=== PATIENT | female | born 1965 ===

== ENCOUNTER 2020-07-05 12:28 | Outpatient (REF) | payer OTHER, SELFPAY ==
[2020-07-05 13:22] LABS: MANUAL DIFF FLAG NO
[2020-07-05 13:23] LABS: Basophils Percent Auto 0.5 % (0-2); Eosinophils Absolute Auto 0.1 X10*3/uL (0.0-0.4); Eosinophils Percent Auto 1.4 % (0-4); Hematocrit 40.4 % (37-47); Imm Gran Abs Auto 0.01 X10*3/uL (0.00-0.03); Imm Gran Pct Auto 0.2 % (0.0-0.4); Lymphocytes Absolute Auto 2.4 X10*3/uL (1.2-4.9); Lymphocytes Percent Auto 38.2 % (20-40); Mean Corpuscular HGB Conc 32.2 g/dl (31.0-35.0); Mean Corpuscular Hemoglobin 29.8 pg (27.0-33.0); Mean Corpuscular Volume 92.7 fL (80-98); Mean Platelet Volume 12.4 fL (9.4-12.3); Monocytes Absolute Auto 0.5 X10*3/uL (0.1-1.2); Monocytes Percent Auto 7.5 % (2-11); Neutrophils Absolute Auto 3.3 X10*3/uL (2.0-8.3); Neutrophils Percent Auto 52.2 % (45-73); Platelet Count 218 X10*3/uL (160-400); Red Blood Count 4.36 X10*6/uL (4.20-5.50); Red Cell Distribution Width 13.2 % (11.0-16.0); White Blood Count 6.3 X10*3/uL (4.8-10.8)
[2020-07-05 13:29] LABS: Glucose Urine UA NEG (NEG); Leukocyte Esterase Urine NEG (NEG); Nitrite Urine NEG (NEG); Urine Blood 1+ (NEG); Urine Ketones NEG (NEG); Urine Protein NEG (NEG-TRACE)
[2020-07-05 13:52] LABS: Appearance Urine CLEAR; Color Urine YELLOW
[2020-07-05 13:54] LABS: Bacteria Urine TRACE /LPF; RBC Urine 0-2 /HPF (0); Squamous Epithelial Cell Urine TRACE /LPF; WBC Urine 0-2 /HPF (0-4)
[2020-07-05 14:50] LABS: Anion Gap 9 (12-20); Blood Urea Nitrogen 11 mg/dL (9-16); Calcium 9.2 mg/dL (8.4-10.2); Carbon Dioxide 29 mmol/L (22-29); Chloride 107 mmol/L (96-108); Cholesterol 189 mg/dL; Estimated Glomerular Filt Rate > 60; Glucose Fasting 89 mg/dL (60-99); HDL Cholesterol 77 mg/dL; LDL Cholesterol Calculated 91 mg/dl; Potassium 4.4 mmol/L (3.3-5.1); Sodium 141 mmol/L (135-145); Triglycerides 106 mg/dL
[2020-07-05 15:01] LABS: TSH reflex Free T4 4.21 uIU/mL (0.32-4.0)
[2020-07-05 15:44] LABS: Free T4 (Free Thyroxine) 1.07 ng/dL (0.71-1.85)
== END 2020-07-05 12:29 | disposition home or self-care (01) ==
LOC: HO.LAB 12:28
PROVIDERS: PCP Internal Medicine; Visit Provider Nurse Practitioner Family
DX: R10.31 Right lower quadrant pain (principal); E03.9 Hypothyroidism, unspecified
CPT/HCPCS: 36415; 80048; 80061; 81001; 84439; 84443; 85025

== ENCOUNTER 2020-07-23 11:24 | Outpatient (REF) | payer OTHER, SELFPAY ==
--- NOTE | ~2020-07-23 | US_ITS ---
EXAMINATION: US RETROPERITONEAL LIMITED (RENAL ONLY) CLINICAL INFORMATION: Right lower quadrant pain. COMPARISON: KUB 04/18/2019. Ultrasound abdomen complete 06/01/2017. TECHNIQUE: Real-time imaging of the kidneys. FINDINGS: RIGHT KIDNEY: 9.6 x 4.2 x 4.0 cm (SAG x AP x TRV). The kidney is normal in size, contour, and echogenicity. Renal cortical thickness is normal. No calculi or focal parenchymal lesions. No hydronephrosis. LEFT KIDNEY: 11.4 x 6.2 x 4.5 cm (SAG x AP x TRV). The kidney is normal in size, contour, and echogenicity. Renal cortical thickness is normal. No calculi or focal parenchymal lesions. No hydronephrosis. ADDITIONAL: Color Doppler shows bilateral ureteral jets at the bladder base. US/US renal BI IMPRESSION: No hydronephrosis or visible calculi.
== END 2020-07-23 11:25 | disposition home or self-care (01) ==
LOC: HO.US 11:24
PROVIDERS: Visit Provider Nurse Practitioner Family
DX: R10.31 Right lower quadrant pain (principal)
CPT/HCPCS: 76775

== ENCOUNTER → 2020-08-08 09:43 | Outpatient (BNVA) | payer OTHER, SELFPAY | PROVIDERS: PCP Internal Medicine; Visit Provider Nurse Practitioner Gerontology ==

== ENCOUNTER 2020-08-20 12:45 | Outpatient (REF) | payer OTHER, SELFPAY ==
--- NOTE | ~2020-08-20 | XR_ITS ---
EXAMINATION: XR LUMBOSACRAL SPINE CLINICAL INFORMATION: Low back pain. COMPARISON: 06/20/2018 x-ray. TECHNIQUE: 3 views of the lumbosacral spine. FINDINGS: There is curvature of the lumbar spine to the right. Bone alignment is otherwise normal. No fracture or dislocation is seen. Disc spaces are normal. There is lower lumbar spine facet arthritis. XR/XR lumbar spine 2-3V IMPRESSION: Mild curvature of the lumbar spine to the right. Lower lumbar spine facet arthritis.
[2020-08-20 15:19] LABS: Free T4 (Free Thyroxine) 1.09 ng/dL (0.71-1.85); Thyroid Stimulating Hormone 1.92 uIU/mL (0.32-4.0)
== END 2020-08-20 12:46 | disposition home or self-care (01) ==
LOC: HO.XRAY 12:45
PROVIDERS: Absent Provider Nurse Practitioner Gerontology; PCP Internal Medicine; Visit Provider Internal Medicine
DX: M54.5 Low back pain (principal); E89.0 Postprocedural hypothyroidism
CPT/HCPCS: 36415; 72100; 84439; 84443

== ENCOUNTER 2020-09-18 15:29 | Outpatient (REF) | payer OTHER, SELFPAY ==
[2020-09-20 07:09] LABS: Urine Cytology See Pathology rpt
== END 2020-09-18 15:30 | disposition home or self-care (01) ==
LOC: HO.LNP 15:29
PROVIDERS: PCP Internal Medicine; Visit Provider Urology
DX: R31.29 Other microscopic hematuria (principal)
CPT/HCPCS: 81002; 88112; 99202

== ENCOUNTER → 2020-10-08 11:13 | Outpatient (BNVA) | payer OTHER, SELFPAY | PROVIDERS: PCP Internal Medicine; Visit Provider Urology | DX: R31.29 Other microscopic hematuria (principal) | CPT/HCPCS: 52000; 81002; 99212 ==

== ENCOUNTER → 2020-12-25 08:08 | Outpatient (BNVA) | payer OTHER, SELFPAY | PROVIDERS: PCP Internal Medicine; Referring Provider Internal Medicine; Visit Provider Physician Assistant | DX: Z12.11 Encounter for screening for malignant neoplasm of colon (principal); K63.5 Polyp of colon | CPT/HCPCS: 99202 ==

== ENCOUNTER 2021-02-07 11:19 | Day surgery (SDC) | payer OTHER, SELFPAY ==
--- NOTE | 2021-02-06 12:14 | HO.ANESPROP2 ---
Documented by User: Sultana Galarza NP 02/06/21 12:14 HPI - Anesthesia Eval Consult details Narrative: 55yo F for Colonoscopy PMFSH Active Problems Active Problems: All Active Problems (Updated 12/25/20 @ 08:53 by Marah Almaguer PA-C) Encounter for screening colonoscopy (Acute) Colon polyps (Acute) Postablative hypothyroidism (Acute) Microscopic hematuria (Acute) Low back pain (Acute) Hypothyroidism (Acute) Right lower quadrant abdominal pain (Acute) Past Medical History Medical History (Updated 12/25/20 @ 08:53 by Marah Almaguer PA-C) Colon polyps Hypothyroidism Low back pain Microscopic hematuria Postablative hypothyroidism Right lower quadrant abdominal pain Sleep apnea Vitamin D deficiency Family History Family History Father CHF (congestive heart failure) Pacemaker Mother CAD (coronary artery disease) Palpitations Maternal Aunt Thyroid disease Sister No problems noted. Son No problems noted. Brother Colon polyps Surgical History Surgical History History of hand surgery History of thyroidectomy Hx of thumb surgery Social History Social History Household Members: Children Housing: Apartment Alcohol intake: current Alcohol intake frequency: holidays/special occasions only Alcohol type: beer Patient Tobacco Use Status: Current someday Tobacco user Tobacco use type: Cigarette Cigarettes Per Day: 2 e-Cigarette/Vaping Use: Never Used Second Hand Smoke Exposure: No Use of substances other than those prescribed or required for medical reasons: No Are you DNR?: No Advance Directives: No Advance Directives Information Provided: Yes service: No Current occupational status: employed 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 Current occupational exposures/hazards: No Meds Allergies Allergy/AdvReac Type Severity Reaction Status Date / Time naproxen [From NAPROSYN] Allergy Mild SWELLING, Verified 12/25/20 08:27 tongue swelling Home Medications Medication Instructions Recorded Confirmed Last Taken Type acetaminophen 500 mg tablet 1,000 mg PO Q6H PRN 08/08/20 02/03/21 Unknown History (Tylenol Extra Strength) multivitamin 1 tab PO DAILY 08/08/20 02/03/21 Unknown History Exam Exam Date and Time: February 06, 2021 1214 Assessment and Plan Assessment Anesthesia Assessment: Chart Reviewed Documented by User: Kate Aguillon MD 02/07/21 12:36 [facility] Past Medical History Medical History (Updated 12/25/20 @ 08:53 by Marah Almaguer PA-C) Colon polyps Hypothyroidism Low back pain Microscopic hematuria Postablative hypothyroidism Right lower quadrant abdominal pain Sleep apnea Vitamin D deficiency Family History Family History Father CHF (congestive heart failure) Pacemaker Mother CAD (coronary artery disease) Palpitations Maternal Aunt Thyroid disease Sister No problems noted. Son No problems noted. Brother Colon polyps Surgical History Surgical History History of hand surgery History of thyroidectomy Hx of thumb surgery Social History Social History Household Members: Children Housing: Apartment Alcohol intake: current Alcohol intake frequency: holidays/special occasions only Alcohol type: beer Patient Tobacco Use Status: Current someday Tobacco user Tobacco use type: Cigarette Cigarettes Per Day: 2 e-Cigarette/Vaping Use: Never Used Second Hand Smoke Exposure: No Use of substances other than those prescribed or required for medical reasons: No Are you DNR?: No Advance Directives: No Advance Directives Information Provided: Yes service: No Current occupational status: employed 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
[2021-02-07 11:44] VITALS: BMI 32.4
[2021-02-07 11:54] VITALS: BP 134/65; PULSE 79; RESP 18; TEMP 36.6; O2SAT 97
[2021-02-07] MEDS: Lactated Ringers 1,000 ML 100 ML IVCONT (12:06)
--- NOTE | 2021-02-07 12:57 | MHC.SHP ---
Pre-Procedural Eval Section A Date of Service: 02/07/21 The patient is an INPATIENT: No The History & Physical has been completed within 30 days and I have reviewed it.: No Section B Chief Complaint: screening,polyp of colon Details of Present Illness: Colon cancer screen, history of colon polyps, FH of colon cancer and polyps Relevant Family History (Specify if Yes): Yes Present Medications: see Short Stay Collaborative assessment Medical History: Significant History (Colon polyps Hypothyroidism Low back pain Microscopic hematuria Postablative hypothyroidism Right lower quadrant abdominal pain Sleep apnea Vitamin D deficiency) History of Previous Operations: Relevant previous surgery/procedure and date(s) (History of hand surgery History of thyroidectomy Hx of thumb surgery) Allergies: Allergies Allergy/AdvReac Type Severity Reaction Status Date / Time naproxen [From NAPROSYN] Allergy Mild SWELLING, Verified 12/25/20 08:27 tongue swelling Review of Systems Sugical H&P ROS: Negative: Constitution, Cardiovascular, Respiratory and Gastrointestinal Exam Surgical H&P Exam: Normal: Heart, Normal: Lungs, Normal: Extremities and Normal: Abdomen Plan Diagnosis/Plan: Unchanged I have reviewed the history and physical and performed a pertinent physical examination on my patient. No changes have occurred unless specified.
--- NOTE | 2021-02-07 13:08 | PM.OP ---
Brief Operative Note Date of Service: 02/07/21 Pre-op diagnosis: Colon cancer screening, history of colon polyps, family history of colon cancer and polyps Post-op diagnosis: other (Colon polyps, diverticulosis, nodule ascending colon) Procedure: COLONOSCOPY TILL CECUM WITH BIOPSIES AND SNARE POLYPECTOMY Consent: Indications for the procedure and potential complications of bleeding, perforation, reaction to medications and missed diagnosis were discussed with the patient and informed consent was obtained. Instrument: Olympus PCF H 190 L variable stiffness pediatric colonoscope Monitoring: Vital signs and clinical assessment, intermittent blood pressure monitoring, continuous EKG monitoring, Pulse oximetry and Carbon Dioxide monitoring were done throughout the procedure. Colon withdrawl time was 20 minutes. Procedure: The patient was placed in the left lateral decubitis position and pre-procedure medications were administered. After a digital rectal examination of the ano-rectum, the video colonoscope was inserted into the rectum and advanced through the colon to the cecum. The colonoscope was slowly withdrawn in a retrograde panoramic fashion and the colon mucosa was carefully examined including a retroflexed view of the rectum. Findings and interventions are described below. Procedure Difficulty: Without difficulty Findings: Terminal Ileum: Not evaluated Cecum: Normal Ascending Colon: A 2 cms yellowish benign appearing nodule in the proximal ascending colon - biopsies obtained Transverse Colon: A 4-5 mm sessile polyp removed with a cold bx. Descending Colon: Moderate diverticulosis Sigmoid Colon: Two 8-10 mm sessile polyps removed with a cold snare and a 6-7 mm diminutive appearing polyp removed with a cold bx. Moderate diverticulosis Rectum: A 10-12 mm sessile polyp removed with a hot snare Ano-rectum: Moderate internal hemorrhoids Colon preparation: Good Impression and Post Procedure Diagnosis: Colonoscopy Findings: Five small to medium sized polyps removed A 2 cms yellowish benign appearing nodule in the proximal ascending colon - likely submucosal lipoma Moderate diverticulosis seen in the left colon Plan: Await pathology results Patient has an appointment on 03/06/21 in the GI Clinic with JAYSHREE Salinas . Repeat Colonoscopy interval based on path results - in 3-5 years if polyps are adenomatous and 5 years if polyps are hyperplastic due to positive family hx. Above findings were reviewed with the patient and colon polyps and diverticulosis handouts were given in the discharge area Surgeon: Jeancarlos Savage MD Anesthesia: MAC (Sonia James CRNA) Was an Instructional Services Librarian used for this Procedure?: Yes Instructional Services Librarian: Gold Winter Estimated blood loss (mL): 0 Pathology: other (A- ASCENDING COLON NODULE B- TRANSVERSE COLON POLYP C- SIGMOID COLON POLYPS D- RECTAL POLYP) Condition: stable Disposition: PACU
--- NOTE | 2021-02-07 13:10 | W.PM.OPN ---
Operative Note Operative Note Date of Service: 02/07/21 Narrative: Pre-op diagnosis:?Colon cancer screening, history of colon polyps, family history of colon cancer and polyps Post-op diagnosis:?other (Colon polyps, diverticulosis, nodule ascending colon) Procedure:? COLONOSCOPY TILL CECUM WITH BIOPSIES AND SNARE POLYPECTOMY Consent: Indications for the procedure and potential complications of bleeding, perforation, reaction to medications and missed diagnosis were discussed with the patient and informed consent was obtained. Instrument: Olympus PCF H 190 L variable stiffness pediatric colonoscope Monitoring: Vital signs and clinical assessment, intermittent blood pressure monitoring, continuous EKG monitoring, Pulse oximetry and Carbon Dioxide monitoring were done throughout the procedure. Colon withdrawl time was 20 minutes. Procedure: The patient was placed in the left lateral decubitis position and pre-procedure medications were administered. After a digital rectal examination of the ano-rectum, the video colonoscope was inserted into the rectum and advanced through the colon to the cecum. The colonoscope was slowly withdrawn in a retrograde panoramic fashion and the colon mucosa was carefully examined including a retroflexed view of the rectum. Findings and interventions are described below. Procedure Difficulty: Without difficulty Findings: Terminal Ileum: Not evaluated Cecum:? Normal Ascending Colon:? A 2 cms yellowish benign appearing nodule in the proximal ascending colon - biopsies obtained Transverse Colon:? A 4-5 mm sessile polyp removed with a cold bx. Descending Colon:? Moderate diverticulosis Sigmoid Colon:? Two 8-10 mm sessile polyps removed with a cold snare and a 6-7 mm diminutive appearing polyp removed with a cold bx.? Moderate diverticulosis Rectum:? A 10-12 mm sessile polyp removed with a hot snare Ano-rectum:? Moderate internal hemorrhoids Colon preparation:? Good? Impression and Post Procedure Diagnosis: Colonoscopy Findings: Five small to medium sized polyps removed A 2 cms yellowish benign appearing nodule in the proximal ascending colon - likely submucosal lipoma Moderate diverticulosis seen in the left colon Plan: Await pathology results Patient has an appointment on 03/06/21 in the GI Clinic with JAYSHREE Salinas . Repeat Colonoscopy interval based on path results - in 3-5 years if polyps are adenomatous and 5 years if polyps are hyperplastic due to positive family hx. Above findings were reviewed with the patient and colon polyps and diverticulosis handouts were given in the discharge area Surgeon:?Jeancarlos Savage MD Anesthesia:?MAC (Sonia James CRNA) Was an Vermin Exterminator used for this Procedure?:?Yes Vermin Exterminator:?Gold Winter Estimated blood loss (mL):?0 Pathology:?other (A- ASCENDING COLON NODULE? B- TRANSVERSE COLON POLYP? C- SIGMOID COLON POLYPS? D- RECTAL POLYP) Condition:?stable Disposition:?PACU
[2021-02-07 13:54] VITALS: BP 126/64; PULSE 79; RESP 16; TEMP 36.1; O2SAT 98
[2021-02-07 14:09] VITALS: BP 132/72; PULSE 74; RESP 18; O2SAT 100
--- NOTE | 2021-02-07 14:54 | PC.NURSE ---
Discharge instructions given by Tish Thurston RN
== END 2021-02-07 14:39 | disposition home or self-care (01) ==
PROVIDERS: PCP Internal Medicine; Visit Provider Internal Medicine Gastroenterology
PROC: 0DJD8ZZ Inspection of Lower Intestinal Tract, Via Natural or Artificial Opening Endoscopic (ICD-10-PCS; CPT 45378; principal; 2021-02-07 12:20)
DX: Z12.11 Encounter for screening for malignant neoplasm of colon (principal); Z86.010 Personal history of colon polyps; Z83.71 Family history of colonic polyps; D12.3 Benign neoplasm of transverse colon; D12.5 Benign neoplasm of sigmoid colon; K62.1 Rectal polyp; K63.89 Other specified diseases of intestine; K57.30 Diverticulosis of large intestine without perforation or abscess without bleeding; K64.8 Other hemorrhoids; E89.0 Postprocedural hypothyroidism; E55.9 Vitamin D deficiency, unspecified; Z79.899 Other long term (current) drug therapy; Z88.8 Allergy status to other drugs, medicaments and biological substances; F17.210 Nicotine dependence, cigarettes, uncomplicated
CPT/HCPCS: 45385; 45380; 88305

== ENCOUNTER → 2021-02-14 11:54 | Outpatient (BNVA) | payer OTHER, SELFPAY | PROVIDERS: PCP Internal Medicine; Visit Provider Nurse Practitioner Gerontology | DX: E89.0 Postprocedural hypothyroidism (principal); E66.09 Other obesity due to excess calories; Z68.30 Body mass index [BMI] 30.0-30.9, adult | CPT/HCPCS: 99212 ==

== ENCOUNTER 2021-10-02 20:20 | Emergency (ER) | payer OTHER, SELFPAY ==
--- NOTE | 2021-10-02 | ECG_ITS ---
Test Reason : CHEST PAIN Blood Pressure : / mmHG Vent. Rate : 090 BPM Atrial Rate : 090 BPM P-R Int : 142 ms QRS Dur : 086 ms QT Int : 344 ms P-R-T Axes : 099 007 007 degrees QTc Int : 420 ms Artifact in tracing Normal sinus rhythm Minimal voltage criteria for LVH, may be normal variant ( [place] product ) Borderline ECG When compared with ECG of 23-SEP-2017 11:22, T wave amplitude has decreased in Lateral leads Referred By: Charles Moran Electronically Signed By:AMADEO OSUNA
[2021-10-02 21:04] VITALS: BP 126/72; PULSE 84; RESP 16; TEMP 37.2; O2SAT 100; BMI 32.4
== END 2021-10-02 21:12 | disposition left against medical advice (07) ==
PROVIDERS: Emergency Provider Emergency Medicine
DX: R07.9 Chest pain, unspecified (principal)
CPT/HCPCS: 93005; 99283

== ENCOUNTER 2021-10-06 07:20 | Outpatient (REF) | payer OTHER, SELFPAY ==
[2021-10-06 07:35] LABS: MANUAL DIFF FLAG NO
[2021-10-06 08:09] LABS: Basophils Percent Auto 0.4 % (0-2); Eosinophils Absolute Auto 0.1 X10*3/uL (0.0-0.4); Eosinophils Percent Auto 1.2 % (0-4); Hematocrit 39.8 % (37.0-47.0); Hemoglobin 12.9 g/dl (12.0-16.0); Imm Gran Abs Auto 0.01 X10*3/uL (0.00-0.03); Imm Gran Pct Auto 0.1 % (0.0-0.4); Lymphocytes Absolute Auto 2.9 X10*3/uL (1.2-4.9); Mean Corpuscular HGB Conc 32.4 g/dl (31.0-35.0); Mean Corpuscular Hemoglobin 29.9 pg (27.0-33.0); Mean Corpuscular Volume 92.3 fL (80.0-98.0); Mean Platelet Volume 11.7 fL (9.4-12.3); Monocytes Absolute Auto 0.5 X10*3/uL (0.1-1.2); Monocytes Percent Auto 8.1 % (2-11); Neutrophils Absolute Auto 3.1 x10*3/uL (2.0-8.3); Neutrophils Percent Auto 47.2 % (45-73); Platelet Count 227 X10*3/uL (160-400); Red Blood Count 4.31 X10*6/uL (4.20-5.50); Red Cell Distribution Width 13.2 % (11.0-16.0); White Blood Count 6.7 X10*3/uL (4.8-10.8)
[2021-10-06 08:29] LABS: Alanine Aminotransferase 25 U/L (0-31); Albumin Level 4.1 g/dL (3.5-5.0); Alkaline Phosphatase 114 U/L (39-117); Anion Gap 11 (12-20); Aspartate Amino Transferase 22 U/L (5-31); Bilirubin Total 0.5 mg/dL (0.0-1.0); Blood Urea Nitrogen 18 mg/dL (9-16); Calcium 9.4 mg/dL (8.4-10.2); Carbon Dioxide 24 mmol/L (22-29); Chloride 108 mmol/L (96-108); Cholesterol 180 mg/dL; Estimated Glomerular Filt Rate > 60; Glucose Fasting 94 mg/dL (60-99); HDL Cholesterol 67 mg/dL; LDL Cholesterol Calculated 102 mg/dl; Potassium 4.4 mmol/L (3.3-5.1); Sodium 139 mmol/L (135-145); Total Protein 6.9 g/dL (6.5-8.0); Triglycerides 55 mg/dL
[2021-10-06 08:49] LABS: Thyroid Stimulating Hormone 10.11 uIU/mL (0.32-4.0)
[2021-10-11 12:17] LABS: Vitamin D 25-OH, D2 <4 ng/mL; Vitamin D 25-OH, D3 21 ng/mL; Vitamin D 25-OH, Total 21 ng/mL (30-100)
== END 2021-10-06 07:21 | disposition home or self-care (01) ==
LOC: HO.LAB 07:20
PROVIDERS: PCP Internal Medicine; Visit Provider Internal Medicine
DX: Z00.00 Encounter for general adult medical examination without abnormal findings (principal); E66.09 Other obesity due to excess calories; Z68.30 Body mass index [BMI] 30.0-30.9, adult; D64.9 Anemia, unspecified; E55.9 Vitamin D deficiency, unspecified; E03.9 Hypothyroidism, unspecified
CPT/HCPCS: 36415; 80053; 80061; 82306; 84443; 85025

== ENCOUNTER 2022-01-07 09:42 | Outpatient (REF) | payer OTHER, SELFPAY ==
[2022-01-07 09:56] LABS: MANUAL DIFF FLAG NO
[2022-01-07 10:16] LABS: Basophils Percent Auto 0.5 % (0-2); Eosinophils Absolute Auto 0.1 X10*3/uL (0.0-0.4); Hematocrit 37.3 % (37.0-47.0); Hemoglobin 12.2 g/dl (12.0-16.0); Imm Gran Abs Auto 0.01 X10*3/uL (0.00-0.03); Imm Gran Pct Auto 0.2 % (0.0-0.4); Lymphocytes Absolute Auto 2.4 X10*3/uL (1.2-4.9); Lymphocytes Percent Auto 38.5 % (20-40); Mean Corpuscular HGB Conc 32.7 g/dl (31.0-35.0); Mean Corpuscular Hemoglobin 29.8 pg (27.0-33.0); Mean Corpuscular Volume 91.2 fL (80.0-98.0); Mean Platelet Volume 12.1 fL (9.4-12.3); Monocytes Absolute Auto 0.6 X10*3/uL (0.1-1.2); Monocytes Percent Auto 9.3 % (2-11); Neutrophils Percent Auto 49.5 % (45-73); Platelet Count 205 X10*3/uL (160-400); Red Blood Count 4.09 X10*6/uL (4.20-5.50); Red Cell Distribution Width 13.1 % (11.0-16.0); White Blood Count 6.1 X10*3/uL (4.8-10.8)
[2022-01-07 10:49] LABS: Free T4 (Free Thyroxine) 1.46 ng/dL (0.71-1.85)
[2022-01-07 14:11] LABS: Alanine Aminotransferase 18 U/L (0-31); Albumin Level 4.3 g/dL (3.5-5.0); Alkaline Phosphatase 105 U/L (39-117); Anion Gap 14 (12-20); Aspartate Amino Transferase 19 U/L (5-31); Bilirubin Total 0.3 mg/dL (0.0-1.0); Blood Urea Nitrogen 11 mg/dL (9-16); Calcium 8.8 mg/dL (8.4-10.2); Carbon Dioxide 22 mmol/L (22-29); Chloride 110 mmol/L (96-108); Estimated Glomerular Filt Rate > 60; Glucose Fasting 107 mg/dL (60-99); Potassium 4.3 mmol/L (3.3-5.1); Sodium 142 mmol/L (135-145); Total Protein 6.8 g/dL (6.5-8.0)
[2022-01-07 14:12] LABS: Thyroid Stimulating Hormone 0.14 uIU/mL (0.32-4.0)
== END 2022-01-07 09:43 | disposition home or self-care (01) ==
LOC: HO.LAB 09:42
PROVIDERS: Nurse Practitioner Gerontology; PCP Internal Medicine; Visit Provider Internal Medicine
DX: K63.5 Polyp of colon (principal); E89.0 Postprocedural hypothyroidism; E66.09 Other obesity due to excess calories; Z68.30 Body mass index [BMI] 30.0-30.9, adult
CPT/HCPCS: 36415; 80053; 84439; 84443; 85025

== ENCOUNTER 2022-01-14 13:09 | Outpatient (REF) | payer OTHER, SELFPAY ==
--- NOTE | ~2022-01-14 | XR_ITS ---
EXAMINATION: XR ANKLE, RIGHT CLINICAL INFORMATION: Pain. COMPARISON: None TECHNIQUE: AP, lateral, and mortise views of the right ankle. FINDINGS: There is moderate lateral malleolar soft tissue swelling. The ankle mortise and subtalar joints are normal. No visible acute fracture, dislocation or subluxation seen. There is a small retrocalcaneal enthesophyte. The soft tissues are normal. XR/XR ankle RT min 3V IMPRESSION: Small retrocalcaneal enthesophyte. No acute fracture or dislocation right ankle.
== END 2022-01-14 13:10 | disposition home or self-care (01) ==
LOC: HO.XRAY 13:09
PROVIDERS: PCP Internal Medicine; Visit Provider Internal Medicine
DX: M25.571 Pain in right ankle and joints of right foot (principal)
CPT/HCPCS: 73610

== ENCOUNTER 2022-03-12 14:00 | Outpatient (RCR) | payer OTHER, SELFPAY ==
--- NOTE | 2022-01-22 16:45 | MHC.PT.EP ---
[facility] [place] Office [place] Office [place] Office [address] Kal Diaz [address] [phone] F: [phone] F: [phone] F: [phone] F: [phone] Physical Therapy Plan of Care Date of Evaluation: Date of Surgery: N/A Diagnosis: LBP (RC + BB) Assessment: pt is a 56 y/o female presenting to physical therapy w/ referring diagnosis of LBP. Working PT diagnoses include lumbar radiculopathy versus lumbar strain. Will continue to monitor and treat or refer as appropriate/needed. Impairments include pain, LE weakness, neurological symptoms, reduced muscular extensibility, impaired postural awareness, and impaired gait mechanics. pt is a good candidate for physical therapy given GOPI, motivation, comorbidities, and typical disease progression/prognosis. pt would benefit from skilled PT to institute a strengthening/stretching program, neuromuscular re-education, gait training, and modalities as needed. Frequency and Duration: The patient will be seen 2x/wk for 4 wks Short Term Goals: pt will be I w/ HEP to promote self-management of condition. pt will demo proper sitting posture w/ lumbar roll as assessed via teachback to promote neutral spine w/ seated ADLs. Antique Collector Goals: pt will improve active lumbar rotation by at least 25% to promote ease in driving and reaching activities. pt will improve B hip abduction by at least 2 MMT grades to reduce B Trendelenburg w/ gait on even ground. Treatment Plan: Modalities to reduce pain, spasms and effusion. Manual therapy to restore motion and function. Therapeutic exercise to improve strength and flexibility. Neuromuscular re-education for posture and balance. Therapeutic activities to return to functional activities of daily living. Electronically signed by: Kavita Calderon PT, DPT Please sign and return to therapist. Thank you for your referral.
--- NOTE | 2022-04-07 11:29 | MHC.PT.DC ---
[facility] [place] Office [place] Office [place] Office [address] Kal Diaz [address] [phone] F: [phone] F: [phone] F: [phone] F: [phone] Physical Therapy Discharge Report Diagnosis: LBP (RC + BB) Date of Surgery: N/A Date of Evaluation: 01/22/22 Date of Discharge: 04/07/22 Treatments to Date: 10 Cancellations to Date: 3 No Shows to Date: 1 Discharge Status: Improved Function Independent with HEP Discharge Summary: The patient was reporting consistent centralization of her radicular symptoms. She was still experiencing persistent glute symptoms which resolved with piriformis stretching. She is independent with her home exercise program. She no showed her last scheduled visit. She is discharged from this physical therapy plan of care. Electronically signed by: Kavita Calderon PT, DPT Please sign and return to therapist. Thank you for your referral.
== END 2022-04-07 11:29 | disposition home or self-care (01) ==
LOC: HO.PT 14:00
PROVIDERS: PCP Internal Medicine; Visit Provider Nurse Practitioner Family
DX: M54.50 Low back pain, unspecified (principal)
CPT/HCPCS: 97110; 97112; 97140; 97162

== ENCOUNTER 2022-04-02 11:43 | Outpatient (REF) | payer OTHER, SELFPAY ==
[2022-04-02 13:30] LABS: Free T4 (Free Thyroxine) 1.17 ng/dL (0.71-1.85)
[2022-04-02 13:31] LABS: Thyroid Stimulating Hormone 0.33 uIU/mL (0.32-4.0)
== END 2022-04-02 11:44 | disposition home or self-care (01) ==
LOC: HO.LAB 11:43
PROVIDERS: Nurse Practitioner Gerontology; Visit Provider Internal Medicine
DX: E03.9 Hypothyroidism, unspecified (principal)
CPT/HCPCS: 36415; 84439; 84443

== ENCOUNTER 2022-05-26 13:41 | Outpatient (REF) | payer OTHER, SELFPAY ==
--- NOTE | ~2022-05-26 | XR_ITS ---
EXAMINATION: XR KNEE, RIGHT CLINICAL INFORMATION: Knee pain COMPARISON: None TECHNIQUE: Four views of the right knee. FINDINGS: Bones and soft tissues are normal. No fracture or joint effusion. Alignment is anatomic. Joint spaces are well maintained. No abnormal soft tissue calcification. XR/XR knee RT 4V IMPRESSION: Normal right knee.
== END 2022-05-26 13:42 | disposition home or self-care (01) ==
LOC: HO.HMGCX 13:41
PROVIDERS: PCP Internal Medicine; Visit Provider Physician Assistant
DX: M25.561 Pain in right knee (principal)
CPT/HCPCS: 73564

== ENCOUNTER 2022-06-25 12:28 | Outpatient (REF) | payer OTHER, SELFPAY ==
--- NOTE | ~2022-06-25 | XR_ITS ---
EXAMINATION: XR KNEES, STANDING AP BILATERAL XR KNEE, RIGHT CLINICAL INFORMATION: M25.561 - Pain in right knee COMPARISON: Standing AP knees 01/27/2018, right knee 05/26/2022. TECHNIQUE: Bilateral standing AP view of the knees is performed. Axial view of the right patella is also performed. FINDINGS: Right: Normal bony mineralization. The medial and lateral knee joint compartments show no narrowing or erosive change or chondrocalcinosis. Axial view of the right patella shows narrowing lateral patellofemoral joint. Left: Normal bony mineralization. The medial and lateral knee joint compartments show no narrowing or erosive change or chondrocalcinosis. XR/XR knee RT 1V IMPRESSION: Right: -Narrowing lateral patellofemoral joint. Left: -Unremarkable.
--- NOTE | ~2022-06-25 | XR_ITS ---
EXAMINATION: XR KNEES, STANDING AP BILATERAL XR KNEE, RIGHT CLINICAL INFORMATION: M25.561 - Pain in right knee COMPARISON: Standing AP knees 01/27/2018, right knee 05/26/2022. TECHNIQUE: Bilateral standing AP view of the knees is performed. Axial view of the right patella is also performed. FINDINGS: Right: Normal bony mineralization. The medial and lateral knee joint compartments show no narrowing or erosive change or chondrocalcinosis. Axial view of the right patella shows narrowing lateral patellofemoral joint. Left: Normal bony mineralization. The medial and lateral knee joint compartments show no narrowing or erosive change or chondrocalcinosis. XR/XR knee standing BI IMPRESSION: Right: -Narrowing lateral patellofemoral joint. Left: -Unremarkable.
== END 2022-06-25 12:29 | disposition home or self-care (01) ==
LOC: HO.HOSX 12:28
PROVIDERS: Visit Provider Physician Assistant
DX: M25.562 Pain in left knee (principal); M17.11 Unilateral primary osteoarthritis, right knee; M70.51 Other bursitis of knee, right knee
CPT/HCPCS: 73560; 73565; 99202

== ENCOUNTER 2022-09-09 13:35 | Emergency (ER) | payer OTHER, SELFPAY ==
--- NOTE | ~2022-09-09 | XR_ITS ---
EXAMINATION: XR ANKLE, LEFT CLINICAL INFORMATION: Left ankle pain status post fall. COMPARISON: None available. TECHNIQUE: AP, lateral, and mortise views of the left ankle. An indicator arrow points to the lateral malleolus. FINDINGS: The ankle joint and mortise are intact. There is no acute fracture or dislocation. The tarsal bones are normally aligned. There is mild soft tissue swelling. XR/XR ankle LT min 3V IMPRESSION: Mild soft tissue swelling without acute underlying osseous abnormality.
--- NOTE | ~2022-09-09 | XR_ITS ---
EXAMINATION: XR FOOT, LEFT CLINICAL INFORMATION: Left foot pain status post fall. COMPARISON: None available. TECHNIQUE: AP, lateral, and oblique views of the left foot. An indicator arrow points to the medial aspect of the tarsal bones. FINDINGS: The phalanges and metatarsals are intact. The tarsal bones are normally aligned and intact. Minimal degenerative dorsal spurring is seen at the talonavicular joint. There is mild soft tissue swelling. No radiopaque foreign body. XR/XR foot LT min 3V IMPRESSION: Mild soft tissue swelling without acute underlying osseous abnormality.
[2022-09-09 14:08] VITALS: BP 133/79; PULSE 89; RESP 18; TEMP 36.6; O2SAT 100; BMI 33.5
--- NOTE | 2022-09-09 14:11 | ED_ITS ---
HPI - Extremity Injury (Lower) General Chief Complaint: Extremity Injury, Lower <JAYSHREE Shirley Last Filed: 09/09/22 14:12> Stated Complaint: L foot pain <JAYSHREE Shirley Last Filed: 09/09/22 14:12> Time Seen by Provider: 09/09/22 14:53 <JAYSHREE Shirley Last Filed: 09/09/22 14:12> Source: patient <JAYSHREE Browne Last Filed: 09/09/22 17:17> Mode of arrival: ambulatory <JAYSHREE Browne Last Filed: 09/09/22 17:17> Limitations: no limitations <JAYSHREE Browne Last Filed: 09/09/22 17:17> History of Present Illness HPI Narrative: Patient is a 56 year old assigned female at presenting to the emergency department today with left ankle pain. Patient states that she rolled her ankle inward when she stepped on a rock yesterday getting into her car. She denies any sensation of a pop upon injury. Patient denies any dizziness, lightheadedness, abdominal pain, nausea, vomiting, fever, chills, blurry vision, double vision, loss of vision, chest pain, difficulty breathing, shortness of breath, back pain, night sweats, pain with urination, increased urinary frequency, increased urinary urgency, blood in her urine or stool, syncope or a near syncopal episode, bowel incontinence, bladder incontinence, bowel retenti on, bladder retention, or any other complaints at this time. <JAYSHREE Browne Last Filed: 09/09/22 17:17> MD complaint: ankle injury <JAYSHREE Browne Last Filed: 09/09/22 17:17> Onset (ago): day(s) (1) <JAYSHREE Browne Last Filed: 09/09/22 17:17> Injury: Left: ankle <JAYSHREE Browne Last Filed: 09/09/22 17:17> Type of Injury: inversion <JAYSHREE Browne Last Filed: 09/09/22 17:17> Place: street/outdoors <JAYSHREE Browne Last Filed: 09/09/22 17:17> Relieving factors: other (ice, tylenol) <JAYSHREE Browne - Last Filed: 09/09/22 17:17> Exacerbating factors: weight bearing and palpation <JAYSHREE Browne - Last Filed: 09/09/22 17:17> Context: walking <JAYSHREE Browne - Last Filed: 09/09/22 17:17> Other symptoms: none <JAYSHREE Browne - Last Filed: 09/09/22 17:17> Treatments prior to arrival: cold therapy and other (tylenol) <JAYSHREE Browne - Last Filed: 09/09/22 17:17> Related Data Home Medications: Home Medications Medication Instructions Recorded Confirmed multivitamin 1 tab PO DAILY 08/08/20 05/26/22 Previous Rx's Medication Instructions Recorded lidocaine 4 % topical patch 1 patch topical DAILY PRN pain #15 12/24/21 (AsperFlex (lidocaine)) ea cyclobenzaprine 10 mg tablet 10 mg PO BID #10 tabs 12/26/21 levothyroxine 125 mcg tablet 125 mcg PO DAILY 90 days #90 tabs 03/30/22 prednisone 20 mg tablet 40 mg PO DAILY 5 days #10 tabs 05/26/22 albuterol sulfate 90 mcg/actuation 2 puff inhalation Q6H PRN 07/24/22 aerosol inhaler shortness of breath or wheezing #6.7 grams azithromycin 250 mg tablet See Rx Instructions PO .COMPLEX #6 07/24/22 tabs benzonatate 100 mg capsule 100 mg PO BID PRN cough #14 caps 07/24/22 prednisone 20 mg tablet 40 mg PO DAILY 5 days #10 tabs 07/24/22 <JAYSHREE Shirley - Last Filed: 09/09/22 14:12> Allergies/Adverse Reactions: Allergies Allergy/AdvReac Type Severity Reaction Status Date / Time naproxen [From NAPROSYN] Allergy Mild SWELLING, Verified 07/24/22 14:02 tongue swelling <JAYSHREE Shirley Last Filed: 09/09/22 14:12> Review of Systems Review of Systems: Yes Unobtainable due to mental status <JAYSHREE Browne Last Filed: 09/09/22 17:17> Constitutional: Constitutional: Reports no additional constitutional complaints, Denies chills, Denies fever(s) and Denies night sweats <JAYSHREE Browne - Last Filed: 09/09/22 17:17> Eyes: Eyes: Reports no additional eye complaints, Denies blurry vision, Denies change in vision, Denies diplopia, Denies eye discharge, Denies loss of vision and Denies eye pain <JAYSHREE Browne - Last Filed: 09/09/22 17:17> ENT: Denies dizziness <JAYSHREE Browne - Last Filed: 09/09/22 17:17> Cardiovascular: Cardiovascular: Reports no additional cardiovascular complaints, Denies chest pain, Denies lightheadedness, Denies Loss of Co nsciousness and Denies dyspnea <JAYSHREE Browne - Last Filed: 09/09/22 17:17> Respiratory: Respiratory: Reports no additional respiratory complaints and Denies dyspnea <JAYHSREE Browne - Last Filed: 09/09/22 17:17> Gastrointestinal: Gastrointestinal: Reports no additional gastrointestinal complaints, Denies abdominal pain, Denies melena, Denies hematochezia, Denies change in bowel habits and Denies change in stool character <JAYSHREE Browne - Last Filed: 09/09/22 17:17> Genitourinary: Genitourinary: Denies hematuria, Denies urinary frequency, Denies dysuria, Denies urinary incontinence, Denies urinary hesitancy and Denies urinary urgency <JAYSHREE Browne - Last Filed: 09/09/22 17:17> Musculoskeletal: Musculoskeletal: Reports no additional musculoskeletal complaints, Denies numbness and Denies tingling <JAYSHREE Browne - Last Filed: 09/09/22 17:17> Comments: left foot pain <JAYSHREE Browne - Last Filed: 09/09/22 17:17> Neurologic: Denies dizziness, Denies loss of vision, Denies numbness and Denies tingling <JAYSHREE Browne - Last Filed: 09/09/22 17:17> Psychiatric: Psychiatric: Reports no additional psychiatric complaints <JAYSHREE Browne - Last Filed: 09/09/22 17:17> Endocrine: Endocrine: Reports no additional endocrine complaints <JAYSHREE Browne - Last Filed: 09/09/22 17:17> Hematologic/Lymphatic: Hematologic/Lymphatic: Reports no additional hematologic/lymphatic complaints <JAYSHREE Browne - Last Filed: 0 09/09/22 17:17> Allergic/Immunologic: Allergic/Immunologic: Reports no additional allergic/immunologic complaints <JAYSHREE Browne - Last Filed: 09/09/22 17:17> [facility] Past Medical History Attestation statement: The following information was validated with the patient. <JAYSHREE Browne - Last Filed: 09/09/22 17:17> Source: old records reviewed and nursing notes reviewed <JAYSHREE Browne - Last Filed: 09/09/22 17:17> Medical History: Medical History Colon polyps Hypothyroidism Low back pain Microscopic hematuria Obesity due to excess calories Physical exam Postablative hypothyroidism Right lower quadrant abdominal pain Sleep apnea Vitamin D deficiency <JAYSHREE Shirley - Last Filed: 09/09/22 14:12> Surgical History: Surgical History History of hand surgery History of thyroidectomy Hx of colonoscopy Hx of thumb surgery S/P cataract extraction <JAYSHREE Shirley - Last Filed: 09/09/22 14:12> Family History Family History: Family History Father CHF (congestive heart failure) Pacemaker Mother CAD (coronary artery disease) Palpitations Maternal Aunt Thyroid disease Sister No problems noted. Son No problems noted. 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 Current occupational exposures/hazards: No Cognitive needs: No Hearing needs: No Vision needs: Yes <JAYSHREE Shirley - Last Filed: 09/09/22 14:12> Physical Exam Vital Signs: Vital Signs: Last Vital Signs Temp 97.8 F 09/09/22 16:00 Pulse 73 09/09/22 16:00 Resp 16 09/09/22 16:00 BP 135/55 L 09/09/22 16:00 Pulse Ox 97 09/09/22 16:00 O2 Del Method Room Air 09/09/22 16:00 BMI result Body Mass Index 33.5 <JAYSHREE Shirley - Last Filed: 09/09/22 14:12> Vital Signs: Last Vital Signs Temp 97.8 F 09/09/22 16:00 Pulse 73 09/09/22 16:00 Resp 16 09/09/22 16:00 BP 135/55 L 09/09/22 16:00 Pulse Ox 97 09/09/22 16:00 O2 Del Method Room Air 09/09/22 16:00 BMI result Body Mass Index 33.5 <JAYSHREE Browne - Last Filed: 09/09/22 17:17> Const: General: cooperative, no acute distress, alert and awake <JAYSHREE Browne - Last Filed: 09/09/22 17:17> Nutritional Appearance: well nourished <JAYSHREE Browne Last Filed: 09/09/22 17:17> Orientation/consciousness: patient oriented x3 <JAYSHREE Browne - Last Filed: 09/09/22 17:17> Limitations: no limitations <JAYSHREE Browne Last Filed: 09/09/22 17:17> HEENT: Head: Yes normal to inspection and Yes atraumatic <JAYSHREE Browne Last Filed: 09/09/22 17:17> Ears: hearing grossly normal bilaterally and external ears normal <JAYSHREE Browne Last Filed: 09/09/22 17:17> General nose exam: Normal external nose present, no nasal discharge noted and no epistaxis <JAYSHREE Browne Last Filed: 09/09/22 17:17> Face and sinus: Yes normal facial exam, No abrasion and No laceration <JAYSHREE Roberto Last Filed: 09/09/22 17:17> Mouth: Normal oral and palatal mucosa present, no drooling and no muffled voice <Kimber Baptiste PA - Last Filed: 09/09/22 17:17> Eyes: General: appearance normal, both eyes and all related structures <Kimber Hitchcocksamuel PA - Last Filed: 09/09/22 17:17> Periorbital: periorbital findings normal <Kimber Baptiste PA - Last Filed: 09/09/22 17:17> Eyelids: Yes eyelids normal <Kimber Hitchcocksamuel PA - Last Filed: 09/09/22 17:17> Conjunctivae: conjunctivae normal <Kimber Baptiste, PA - Last Filed: 09/09/22 17:17> Pupils: Equal, round and reactive pupils present <Kimber Hitchcocksamuel PA - Last Filed: 09/09/22 17:17> EOM: EOMs intact bilaterally <Kimber Hitchcocksamuel PA - Last Filed: 09/09/22 17:17> Neck: Neck: Yes normal visual inspection, Yes full ROM and Yes no lymphadenopathy <Kimberjoselyn Hitchcocksamuel PA - Last Filed: 09/09/22 17:17> Chest: Chest palpation & inspection: normal inspection of the chest <Kimber Hitchcocksamuel PA - Last Filed: 09/09/22 17:17> Resp: Effort & Inspection: normal respiratory effort and able to speak in complete sentences <Kimber Hitchcocksamuel PA - Last Filed: 09/09/22 17:17> GI: Inspection: Yes normal to inspection <Kimber Hitchcocksamuel PA - Last Filed: 09/09/22 17:17> Neuro: General: patient oriented x3 <Kimber Hitchcocksamuel PA - Last Filed: 09/09/22 17:17> Cranial nerves: Yes Equal, round and reactive pupils present <Kimber Hitchcocksamuel PA - Last Filed: 09/09/22 17:17> Cognition (Neuro): normal cognition <Kimber Oliva PA - Last Filed: 09/09/22 17:17> Motor exam (neuro): 5/5 motor strength present throughout <Kimbre Hitchcocksamuel PA - Last Filed: 09/09/22 17:17> Sensory Exam: Normal double simultaneous stimulation for sensation <Kimber Oliva PA - Last Filed: 09/09/22 17:17> Coordination: [id number] test normal <JAYSHREE Browne - Last Filed: 09/09/22 17:17> Extrem: Other: negative gutierres test <JAYSHREE Browne - Last Filed: 09/09/22 17:17> General: Yes normal to inspection, Yes full ROM and Yes capillary refill normal <JAYSHREE Browne - Last Filed: 09/09/22 17:17> Left lower extremity: normal to inspection, normal capillary refill and ankle Details: tenderness Location: of the lateral malleolus and of the medial malleolus and no edema; no warmth, no abrasions and no ecchymosis; no edema <JAYSHREE Browne - Last Filed: 09/09/22 17:17> Psych: Appearance: grossly normal <JAYSHREE Browne - Last Filed: 09/09/22 17:17> Mental Status: mental status grossly normal <JAYSHREE Browne - Last Filed: 09/09/22 17:17> Affect: normal affect <JAYSHREE Browne - Last Filed: 09/09/22 17:17> Attitude: cooperative <JAYSHREE Browne - Last Filed: 09/09/22 17:17> Thought process: Normal thought process present <JAYSHREE Browne - Last Filed: 09/09/22 17:17> Thought content: Normal thought content present <JAYSHREE Browne - Last Filed: 09/09/22 17:17> Insight: Good insight present (Psych) <JAYSHREE Browne - Last Filed: 09/09/22 17:17> Course Course Course Narrative: RME - 56 yo female presents to the ER for evaluation of left foot and ankle pain after she slipped on a rock yesterday. Unable to bear weight. No other injuries. Plan: XR left ankle and foot <JAYSHREE Shirley - Last Filed: 09/09/22 14:12> Medical Decision Making Medical Decision Making MDM Narrative: Patient is a 56 year old assigned female at presenting to the emergency department today with left ankle pain. Patient's physical exam showed tenderness to palpation over the medial and lateral aspects of the ankle but was otherwise unremarkable. Patient's left ankle and foot x-rays showed no acute process. I explained my physical exam findings as well as all test results to the patient. I answered all questions asked by the patient. Patient's left ankle and foot were wrapped in an MAURICIO wrap. Patient's PMS was intact prior to and after wrapping. I stressed the importance of the patient taking her medication as prescribed. I stressed the importance of the patient following up with her primary care provider and an orthopedic provider. I stressed the importance of the patient returning to the emergency department immediately if her symptoms were to worsen or if she were to develop any dizziness, shortness of breath, difficulty breathing, chest pain, blurry vision, loss of vision, nausea, vomiting, abdominal pain, fever, chills, back pain, or any other complaints. Patient verbalized agreement and understanding with this treatment plan and discharge. <JAYSHREE Browne Last Filed: 09/09/22 17:17> Differential Diagnosis Differential Diagnoses: The differential diagnosis associated with the presentation includes <JAYSHREE Browne Last Filed: 09/09/22 17:17> ankle sprain <JAYSHREE Browne Last Filed: 09/09/22 17:17> Independent Interpretation I performed an independent interpretation of an: Plain X-Ray <JAYSHREE Browne Last Filed: 09/09/22 17:17> Interpretation: My interpretation is in agreement with the radiologist's impression of these imaging studies. EXAMINATION: XR ANKLE, LEFT CLINICAL INFORMATION: Left ankle pain status post fall.? COMPARISON: None available.? TECHNIQUE: AP, lateral, and mortise views of the left ankle. An indicator arrow points to the lateral malleolus. FINDINGS: The ankle joint and mortise are intact. There is no acute fracture or dislocation. The tarsal bones are normally aligned. There is mild soft tissue swelling. XR/XR ankle LT min 3V IMPRESSION: Mild soft tissue swelling without acute underlying osseous abnormality. Dictated By: Mark Darling MD Signed By: Electronically signed by Mark Darling MD 09/09/22 1603 EXAMINATION: XR FOOT, LEFT CLINICAL INFORMATION: Left foot pain status post fall.? COMPARISON: None available.? TECHNIQUE: AP, lateral, and oblique views of the left foot. An indicator arrow points to the medial aspect of the tarsal bones. FINDINGS: The phalanges and metatarsals are intact. The tarsal bones are normally aligned and intact. Minimal degenerative dorsal spurring is seen at the talonavicular joint. There is mild soft tissue swelling. No radiopaque foreign body. XR/XR foot LT min 3V IMPRESSION: Mild soft tissue swelling without acute underlying osseous abnormality. Dictated By: Mark Darling MD Signed By: Electronically signed by Mark Darling MD 09/09/22 1603 <JAYSHREE Browne - Last Filed: 09/09/22 17:17> Procedures Orthopedic Splinting/Casting Injury #1: Side: left <JAYSHREE Browne Last Filed: 09/09/22 17:17> Lower Extremity Injury Location: ankle and foot <JAYSHREE Browne Last Filed: 09/09/22 17:17> Lower Extremity Immobilizer: Mauricio wrap <JAYSHREE Browne Last Filed: 09/09/22 17:17> Discharge Plan Discharge Clinical Impression: Foot sprain <JAYSHREE Shirley Last Filed: 09/09/22 14:12> Patient Disposition: Home, Self-Care <JAYSHREE Shirley - Last Filed: 09/09/22 14:12> Instructions: Foot Sprain (ED) <JAYSHREE Shirley - Last Filed: 09/09/22 14:12> Additional Instructions: Follow up with your primary care provider and if pain persists >2 weeks, an orthopedic provider. Return to the emergency department immediately if your symptoms worsen or if you develop any dizziness, shortness of breath, difficulty breathing, chest pain, blurry vision, loss of vision, nausea, vomiting, abdominal pain, fever, chills, back pain, or any other complaints. Nathaniel un seguimiento con quiñones proveedor de atenci?n primaria y, si el dolor persiste valarie m?s de 2 semanas, un proveedor ortop?dico. Regrese a la jef de emergencias de inmediato si lauren s?ntomas empeoran o si presenta mareos, dificultad para respirar, dolor de pecho, visi?n borrosa, p?rdida de la visi?n, n?useas, v?mitos, dolor abdominal, fiebre, escalofr?os, dolor de espalda o cualquier otras quejas. <JAYSHREE Shirley - Last Filed: 09/09/22 14:12> Prescriptions: No Action levothyroxine 125 mcg tablet 125 mcg PO DAILY 90 Days Qty: 90 1RF lidocaine [AsperFlex (lidocaine)] 4 % adhesive patch,medicated 1 patch topical DAILY PRN (Reason: pain) Qty: 15 0RF cyclobenzaprine 10 mg tablet 10 mg PO BID Qty: 10 0RF prednisone 20 mg tablet 40 mg PO DAILY 5 Days Qty: 10 0RF azithromycin 250 mg tablet See Rx Instructions PO .COMPLEX Qty: 6 0RF Rx Instructions: For 250 mg dose pack: take 500 mg today (day 1), then 250 mg for 4 days (days 2-5) PO prednisone 20 mg tablet 40 mg PO DAILY 5 Days Qty: 10 0RF albuterol sulfate 90 mcg/actuation HFA aerosol inhaler 2 puff inhalation Q6H PRN (Reason: shortness of breath or wheezing) Qty: 6.7 0RF benzonatate 100 mg capsule 100 mg PO BID PRN (Reason: cough) Qty: 14 0RF multivitamin Tablet 1 tab PO DAILY <JAYSHREE Shirley - Last Filed: 09/09/22 14:12> Referrals: [facility] [Provider Group] (Call to establish and follow up with an orthopedic provider if your pain persists >2 weeks. Llame para establecer y hacer un seguimiento con un proveedor ortop?dico si quiñones dolor persiste por m?s de 2 semanas.) Corry Urena MD [Primary Care Provider] - <JAYSHREE Shirley - Last Filed: 09/09/22 14:12> Stand Alone Forms: Work/School Release <JAYSHREE Shirley - Last Filed: 09/09/22 14:12> Interventions: ED Discharge Assessment Last Done: 09/09/22 16:31 <JAYSHREE Shirley - Last Filed: 09/09/22 14:12> Discharge Date/Time: 09/09/22 16:25 <JAYSHREE Shirley - Last Filed: 09/09/22 14:12> Print Language: Kittitian <JAYSHREE Shirley - Last Filed: 09/09/22 14:12>
[2022-09-09 16:00] VITALS: BP 135/55; PULSE 73; RESP 16; TEMP 36.6; O2SAT 97
--- NOTE | 2022-09-09 16:15 | MHC.EDTECH ---
wrap apply to pt left ankle .
== END 2022-09-09 16:25 | disposition home or self-care (01) ==
PROVIDERS: Emergency Provider Emergency Medicine Emergency Medical Services; PCP Internal Medicine
DX: S93.602A Unspecified sprain of left foot, initial encounter (principal); X50.1XXA Overexertion from prolonged static or awkward postures, initial encounter; Y93.89 Activity, other specified; Y92.810 Car as the place of occurrence of the external cause; Y99.9 Unspecified external cause status
CPT/HCPCS: 73610; 73630; 99283

== ENCOUNTER 2023-04-07 10:23 | Outpatient (REF) | payer OTHER, SELFPAY ==
[2023-04-07 11:26] LABS: Alanine Aminotransferase 32 U/L (0-31); Albumin Level 4.2 g/dL (3.5-5.0); Alkaline Phosphatase 121 U/L (39-117); Anion Gap 14 (12-20); Aspartate Amino Transferase 26 U/L (5-31); Bilirubin Total 0.4 mg/dL (0.0-1.0); Blood Urea Nitrogen 12 mg/dL (9-16); Calcium 9.3 mg/dL (8.4-10.2); Carbon Dioxide 23 mmol/L (22-29); Chloride 107 mmol/L (96-108); Cholesterol 200 mg/dL (<200); Estimated Glomerular Filt Rate > 60; Glucose Fasting 94 mg/dL (60-99); HDL Cholesterol 76 mg/dL (>40); LDL Cholesterol Calculated 103 mg/dL (<100); Potassium 4.4 mmol/L (3.3-5.1); Sodium 140 mmol/L (135-145); Total Protein 7.3 g/dL (6.5-8.0); Triglycerides 108 mg/dL (<150)
[2023-04-07 11:42] LABS: Thyroid Stimulating Hormone 1.53 uIU/mL (0.32-4.0)
== END 2023-04-07 10:24 | disposition home or self-care (01) ==
LOC: HO.LAB 10:23
PROVIDERS: PCP Internal Medicine; Visit Provider Internal Medicine
DX: Z00.00 Encounter for general adult medical examination without abnormal findings (principal); E03.9 Hypothyroidism, unspecified; E78.5 Hyperlipidemia, unspecified
CPT/HCPCS: 36415; 80053; 80061; 84443

== ENCOUNTER 2023-04-14 13:28 | Outpatient (AMB) | payer OTHER, SELFPAY ==
[2023-04-14 13:30] VITALS: BP 130/82; PULSE 102; O2SAT 96; BMI 35.2
--- NOTE | 2023-04-14 13:30 | MHC.PC.OV ---
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 Accompanied by: Self / Same As Patient Allergies naproxen [From NAPROSYN] Allergy (Mild, Verified 04/14/23 13:32) SWELLING, tongue swelling Medication List - Last Reconciled 04/14/23 by Corry Calhoun MD levothyroxine 125 mcg PO DAILY 90 days multivitamin 1 tab PO DAILY Tobacco use date assessed: 04/14/23 Dental Screening Dental Screen Date: 04/14/23 Did you have a dental visit in the last 12 months?: No Did you have a dental problem in the last 6 months where you did not have access to dental care?: No Was dental information given to patient?: Patient has dentist HPI HPI Comments History of Present Illness Details This is a 57-year-old female with hypothyroidism that comes today for follow-up on thyroid. TSH normal. 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 No chest pain or shortness of breath. [facility] Medical History Physical exam Obesity due to excess calories Colon polyps Sleep apnea Vitamin D deficiency Postablative hypothyroidism Microscopic hematuria Low back pain Hypothyroidism Right lower quadrant abdominal pain Surgical History S/P cataract extraction Hx of colonoscopy History of thyroidectomy History of hand surgery Hx of thumb surgery Family History Father CHF (congestive heart failure) Pacemaker Mother CAD (coronary artery disease) Palpitations Maternal Aunt Thyroid disease Sister No problems noted. Son No problems noted. 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 How often do you have a drink containing alcohol?: Monthly or less 2. How many drinks containing alcohol do you have on a typical day when you are drinking?: 1 or 2 3. How often do you have six or more drinks on one occasion?: Never Total Score: 1 Score Reviewed/Action Taken: No KERRY-7 AMB Questionnaire KERRY-7 Date KERRY - 7 assessed: 10/05/22 Source: Developed by Drs. Boubacar Arambula, Brittany Martin, Frank Rodriguez and colleagues, with an educational imelda from [employer]. Review of Systems Const All systems reviewed & are unremarkable except as noted in HPI and below Eyes Reports no additional complaints, Denies change in vision and Denies other visual disturbances Card Denies chest pain at rest, Denies chest pain with activity, Denies edema, Denies irregular heart rhythm, Denies claudication, Denies dyspnea, Denies dyspnea on exertion, Denies orthopnea, Denies paroxysmal nocturnal dyspnea and Denies slow heart rate Resp Denies cough, Denies dyspnea and Denies dyspnea on exertion GI Denies abdominal pain, Denies change in bowel habits, Denies excessive flatus, Denies nausea and Denies vomiting Denies urinary incontinence, Denies urinary hesitancy and Denies urinary urgency Musc Denies abnormal gait, Denies atrophy, Denies deformity and Denies limited range of motion Skin/Breast Denies bleeding lesions, Denies changing lesions and Denies rash Neuro Denies abnormal gait, Denies behavioral changes and Denies lack of coordination Psych Denies behavioral changes Physical exam (Primary Care) Vital Signs: Last Vital Signs Pulse 102 H 04/14/23 13:30 BP 130/82 04/14/23 13:30 Pulse Ox 96 04/14/23 13:30 Oxygen Delivery Method Room Air 04/14/23 13:30 BMI result Body Mass Index 35.2 Tobacco/Smoking Status: Tobacco use Status Tobacco use date assessed 04/14/23 04/14/23 13:35 Patient Tobacco Use Status Current everyday Tobacco 04/14/23 13:30 Tobacco use type Cigarette 04/14/23 13:30 e-Cigarette/Vaping Use Never Used 04/14/23 13:30 Thrive Assessment: Date of Thrive Assessment Date Thrive assessed 10/05/22 04/14/23 13:30 Eyes General: appearance normal, both eyes and all related structures Eyelids: Yes eyelids normal Conjunctivae: conjunctivae normal Neck Neck: Yes normal visual inspection and Yes supple Resp Effort & Inspection: normal respiratory effort Auscultation: clear to auscultation bilaterally Cardio Jugular venous distension: no JVD Rate: regular rate Rhythm: regular rhythm Heart sounds: S1 normal heart sound present and S2 normal heart sound present Extrem General: Yes full ROM Assessment and Plan Assessment & Plan (1) Hypothyroidism: Code(s): E03.9 - Hypothyroidism, unspecified Qualifiers: Hypothyroidism type: unspecified Qualified Code(s): E03.9 - Hypothyroidism, unspecified Plan: Continue levothyroxine. Orders: Orders Thyroid Stimulating Hormone 6 Months E89.0 - Postprocedural hypothyroidism Lipid Panel 6 Months E78.5 - Hyperlipidemia, unspecified Vitamin D 25-OH Total 6 Months E55.9 - Vitamin D deficiency, unspecified Comprehensive [place]. Panel Fast 6 Months M70.50 - Other bursitis of knee, unspecified knee Medications: Refilled levothyroxine 125 mcg PO DAILY 90 tabs 1RF 90 days Coding Level of Care Code Est Pt Level 3 (13947) Diagnoses Hypothyroidism, unspecified type E03.9 Hypothyroidism type: unspecified Time Spent (min) 18
== END 2023-04-14 13:51 | disposition home or self-care (01) ==
PROVIDERS: Visit Provider Internal Medicine
DX: E03.9 Hypothyroidism, unspecified (principal)
CPT/HCPCS: 99213

== ENCOUNTER 2023-05-08 13:19 | Outpatient (AMB) | payer OTHER, SELFPAY ==
[2023-05-08 14:32] VITALS: BP 100/64; PULSE 83; TEMP 36.6; O2SAT 98; BMI 36.3
--- NOTE | 2023-05-08 14:32 | AM.OFFWIN_ITS ---
Intake Vital Signs 05/08/23 14:32 Height 5 ft 3 in Weight 205 lb BMI 36.3 BP 100/64 Blood Pressure Location Lt brachial Position Sitting Pulse 83 Pulse Source Pulse Oximeter Temp 97.9 F Temp Source Oral Pulse Oximetry (%) 98 Oxygen Delivery Method Room Air Intake Visit Reasons: EP, cough (masked) Intake Note: Pt is here today c/o dry cough x5days Patient Tobacco Use Status: Current everyday Tobacco user Allergies naproxen [From NAPROSYN] Allergy (Mild, Verified 05/08/23 14:37) SWELLING, tongue swelling HPI EP, cough (masked) HPI Details Pt is here today c/o dry cough for 5 days, which is starting to give her headache. However she denies nasal congestion, sore throat, fever or chills, weakness or dizziness, myalgias or malaise, nausea vomiting or diarrhea, chest pain or shortness of breath, or other significant associated symptoms. She is not tested for COVID yet, and denies known sick contacts. [facility] Medical History Physical exam Obesity due to excess calories Colon polyps Sleep apnea Vitamin D deficiency Postablative hypothyroidism Microscopic hematuria Low back pain Hypothyroidism Right lower quadrant abdominal pain Surgical History S/P cataract extraction Hx of colonoscopy History of thyroidectomy History of hand surgery Hx of thumb surgery Family History Father CHF (congestive heart failure) Pacemaker Mother CAD (coronary artery disease) Palpitations Maternal Aunt Thyroid disease Sister No problems noted. Son No problems noted. 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 Current occupational exposures/hazards: No Cognitive needs: No Hearing needs: No Vision needs: Yes Review of Systems Const All systems reviewed & are unremarkable except as noted in HPI and below Physical Exam Vital Signs: Last Vital Signs Temp 97.9 F 05/08/23 14:32 Pulse 83 05/08/23 14:32 BP 100/64 05/08/23 14:32 Pulse Ox 98 05/08/23 14:32 Oxygen Delivery Method Room Air 05/08/23 14:32 BMI result Body Mass Index 36.3 Const General: cooperative, healthy appearing, comfortable, no acute distress, alert, awake, Physically active and well groomed; No anxious, diaphoretic, ill appearing, intoxicated appearing, poor hygiene or tired appearing Nutritional Appearance: average body habitus Orientation/consciousness: oriented to person Limitations: no limitations HEENT Head: Yes normal to inspection, Yes normocephalic and Yes atraumatic Ears: hearing grossly normal bilaterally, external ears normal, TM's normal bilaterally and EAC's normal General nose exam: Normal external nose present, Normal nares present, No nasal polyps present, Normal septum present and Nasal discharge present Face and sinus: Yes normal facial exam, Yes sinuses nontender and Yes face symmetric Mouth: Normal oral and palatal mucosa present, lip normal and tongue normal Throat: Yes posterior oropharynx normal, Yes abnormal tonsil ( mild erythema, no tonsillar edema), No peritonsillar mass, Yes postnasal drainage ( Clear), No uvular edema and No cobblestoning Eyes General: appearance normal, both eyes and all related structures Neck Neck: Yes normal visual inspection, Yes trachea midline, Yes supple and Yes lymphadenopathy ( mild submandibular bilaterally) Chest Chest palpation & inspection: normal palpation of entire chest wall Resp Effort & Inspection: normal respiratory effort, able to speak in complete sentences, no audible wheezes, no cough, no grunting, not labored, no nasal flaring, no retractions and symmetric chest movement Auscultation: clear to auscultation bilaterally, no crackles, no rales, no rhonchi, no wheezes, lung sounds not diminished and No rub present Cardio Palpation: normal PMI Rate: regular rate Rhythm: regular rhythm Heart sounds: S1 normal heart sound present and S2 normal heart sound present Skin Other: Good color, warm and dry Neuro General: oriented to person Psych Appearance: grossly normal Mental Status: mental status grossly normal Speech and movement: Normal speech and movement present Affect: normal affect Attitude: cooperative Thought process: Normal thought process present Insight: Good insight present (Psych) Judgement: Good judgement present (Psych) Assessment & Plan Assessment & Plan (1) Upper respiratory infection: Code(s): J06.9 - Acute upper respiratory infection, unspecified Qualifiers: URI type: unspecified URI Qualified Code(s): J06.9 - Acute upper respiratory infection, unspecified Plan: Patient is a 57-year-old female who comes to the walk-in clinic complaining of upper respiratory infection symptoms. She has not tested for COVID yet. She is pending results for flu COVID and RSV PCR testing. I wrote her for a course of Tesosman Smith to trial, and she can start azithromycin as she gives a history of bronchitis in the past. She also requests albuterol to take before bedtime, which has helped her in the past, so I wrote this for her today. She knows to follow up if symptoms persist or worsen Orders: Orders SARS-CoV2/FLU/RSV Today R05.9 - Cough, unspecified Medications: New azithromycin take 500 mg today (day 1), then 250 mg for 4 days (days 2-5) PO 6 tabs 0RF benzonatate 200 mg PO BID-TID PRN 20 caps 0RF cough albuterol sulfate 90 mcg/actuation 1 inh inhalation QID PRN 8.5 grams 0RF shortness of breath or wheezing 1 week Coding Level of Care Code Est Pt Level 4 (36956) Diagnoses Upper respiratory tract infection, unspecified type J06.9 URI type: unspecified URI
== END 2023-05-08 15:05 | disposition home or self-care (01) ==
PROVIDERS: PCP Internal Medicine; Visit Provider Physician Assistant Medical
DX: J06.9 Acute upper respiratory infection, unspecified (principal)
CPT/HCPCS: 99051; 99214

== ENCOUNTER 2023-05-08 15:01 | Outpatient (REF) | payer OTHER, SELFPAY ==
[2023-05-10 11:54] LABS: Influenza A PCR NEGATIVE (Negative); Influenza B PCR NEGATIVE (Negative); Resp Syncy Virus RNA Qual PCR NEGATIVE (Negative); SARS COV2 PCR INHOUSE NEGATIVE (Negative)
== END 2023-05-08 15:02 | disposition home or self-care (01) ==
LOC: HO.LAB 15:01
PROVIDERS: Visit Provider Physician Assistant Medical
DX: Z11.52 Encounter for screening for COVID-19 (principal); R05.9 Cough, unspecified
CPT/HCPCS: 0241U

== ENCOUNTER 2023-08-30 13:41 | Outpatient (AMB) | payer OTHER, SELFPAY ==
[2023-08-30 13:43] VITALS: BP 159/71; PULSE 100; BMI 37.6
--- NOTE | 2023-08-30 13:43 | A.OFFVIS_ITS ---
Intake Vital Signs 08/30/23 13:43 Height 5 ft 3 in Weight 212 lb 1.355 oz BMI 37.6 BP 159/71 H Blood Pressure Location Lt brachial Position Sitting Pulse 100 Intake Visit Reasons: wants to discuss recall colonoscopy Intake Note: Patient in office visit today in follow up to discuss colonoscopy. CC: Patient reports occasional bloating if she eats something she is not supposed to like breads or malay fries. Electronic War[employer] Technical Required: Yes Accompanied by: Self / Same As Patient Allergies naproxen [From NAPROSYN] Allergy (Mild, Verified 08/30/23 13:52) SWELLING, tongue swelling Medication List - Last Reconciled 08/30/23 by Marah Almaguer PA-C albuterol sulfate 90 mcg/actuation 1 inh inhalation QID PRN 1 week benzonatate 200 mg PO BID-TID PRN levothyroxine 125 mcg PO DAILY 90 days multivitamin 1 tab PO DAILY HPI HPI Comments History of Present Illness Details A 57 y/o female with hx polyps- colonoscopy 2020- She sees cardiology-has some concerns- she is fatigued- she has dyspnea- intermittenly- no CP- she has stopped smoking- and gained wt-she is worried about heart-causes her anxiety She has upcoming appointment with cardiology- JOSE- she does not use CPAP-she does not f/u with sleep - she snores Appetite is good-she does get abdominal bloating being when she eats greasy foods-no acid reflux no abdominal Bowels are fine No N/ V/ D- abdominal pain, hematemesis, hematochezia fever or chills PFSH Medical History Physical exam Obesity due to excess calories Colon polyps Sleep apnea Vitamin D deficiency Postablative hypothyroidism Microscopic hematuria Low back pain Hypothyroidism Right lower quadrant abdominal pain Surgical History S/P cataract extraction Hx of colonoscopy History of thyroidectomy History of hand surgery Hx of thumb surgery Family History Father CHF (congestive heart failure) Pacemaker Mother CAD (coronary artery disease) Palpitations Maternal Aunt Thyroid disease Sister No problems noted. Son No problems noted. Brother Colon polyps Maternal Uncle Colon cancer Liver cancer Prostate cancer Social History Household Members: Children Housing: Apartment Alcohol intake: former Patient Tobacco Use Status: Former Tobacco user Quit Date: 07/25/23 Tobacco use type: Cigarette Cigarettes Per Day: 3 e-Cigarette/Vaping Use: Never Used Second Hand Smoke Exposure: No service: No Current occupational status: employed Current occupation: [employer] Current occupational exposures/hazards: No Cognitive needs: No Hearing needs: No Vision needs: Yes Review of Systems Const All systems reviewed & are unremarkable except as noted in HPI and below Denies chills, Reports fatigue, Denies fever(s), Denies headache(s) and Reports snoring ENT Denies headache(s) Card Denies chest pain and Reports dyspnea on exertion Resp Reports dyspnea on exertion and Reports snoring Neuro Denies headache(s) Psych Reports anxiety Endo Reports fatigue Physical Exam Vital Signs: Last Vital Signs Pulse 100 08/30/23 13:43 BP 159/71 H 08/30/23 13:43 BMI result Body Mass Index 37.6 Const General: cooperative, healthy appearing, comfortable and no acute distress Orientation/consciousness: patient oriented x3 Limitations: no limitations Eyes Sclerae: sclerae normal Resp Effort & Inspection: normal respiratory effort and able to speak in complete sentences Auscultation: clear to auscultation bilaterally, no rales, no rhonchi and no wheezes Cardio Rate: tachycardic (APR 100) Rhythm: regular rhythm Heart sounds: S1 normal heart sound present and S2 normal heart sound present GI Palpation (GI): nontender Auscultation: normal bowel sounds Neuro General: patient oriented x3 Extrem General: Yes full ROM Psych Appearance: grossly normal and well kempt Mental Status: mental status grossly normal Speech and movement: Normal speech and movement present and Clear speech present Affect: normal affect Attitude: cooperative Thought process: Normal thought process present Thought content: Normal thought content present Results Reviewed Results Reviewed: indings: Terminal Ileum: Not evaluated Cecum:? Normal Ascending Colon:? A 2 cms yellowish benign appearing nodule in the proximal ascending colon - biopsies obtained Transverse Colon:? A 4-5 mm sessile polyp removed with a cold bx. Descending Colon:? Moderate diverticulosis Sigmoid Colon:? Two 8-10 mm sessile polyps removed with a cold snare and a 6-7 mm diminutive appearing polyp removed with a cold bx.? Moderate diverticulosis Rectum:? A 10-12 mm sessile polyp removed with a hot snare Ano-rectum:? Moderate internal hemorrhoids Colon preparation:? Good? Impression and Post Procedure Diagnosis: Colonoscopy Findings: Five small to medium sized polyps removed A 2 cms yellowish benign appearing nodule in the proximal ascending colon - likely submucosal lipoma Moderate diverticulosis seen in the left colon Plan: Await pathology results Patient has an appointment on 03/06/21 in the GI Clinic with JAYSHREE Salinas . Repeat Colonoscopy interval based on path results - in 3-5 years if polyps are adenomatous and 5 years if polyps are hyperplastic due to positive family hx. Above findings were reviewed with the patient and colon polyps and diverticulosis handouts were given in the discharge area Surgeon:?Jeancarlos Savage MD Name: Mela Jurado I Age/Sex: 55/F Attending: Jeancarlos Savage MD : 1965 Submitted by: Jeancarlos Savage MD Copies to: Corry Urena MD MR #: [id number] Status: [facility] Collected: 02/07/21 Location: [facility] Received: 02/07/21 Diagnosis A. Colon, ascending nodule, biopsy: Polypoid fragments of colonic mucosa with lamina propria edema (nonspecific); negative for dysplasia and carcinoma. B. Colon, transverse, polypectomy: Tubular adenoma; negative for high grade dysplasia and carcinoma. C. Colon, sigmoid, polypectomies: Fragments of tubular adenoma(s); negative for high grade dysplasia and carcinoma. Separate fragments of colonic mucosa within normal limits . D. Rectum, polypectomy: Hyperplastic polyp. Clinical History Pre-Op Dx: Screening, hx polyps of colon Post-Op Dx: Colon nodule, colon polyps, diverticulosis Microscopic Description Microscopic sections reviewed. Material Received A. Ascending colon nodule B. Transverse colon polyp C. Sigmoid colon polyps D. Rectal polyp Gross Description Received in four parts. Part A: Received in formalin labeled Ascending colon nodule are three glistening, semitranslucent, soft, knight and knight-pink, irregular and rectangular tissue fragments, ranging from 0.1 to 0.3 cm. in greatest dimension, which are submitted in toto in a single cassette labeled A. Part B: Received in formalin labeled Transverse colon polyp is a 0.9 cm. in greatest dimension, glistening, semitranslucent, soft, thin and delicate, paulino-knight, rectangular tissue fragment, which is submitted in toto in a single cassette labeled B. Part C: Received in formalin labeled Sigmoid colon polyps are several minute to 0.35 cm. in greatest dimension, semitranslucent, soft, hyperemic, knight-pink, irregular and papular tissue fragments, aggregating 1.2 x 1.0 x 0.2 cm. The specimen is submitted in toto in a single cassette labeled C. Patient: Mela Jurado I Age/Sex: 55/F MR#: [id number] Page 1 of 2 Assessment & Plan Assessment & Plan (1) Colon polyps: Comment: hx polyps- ? at [facility]- 4-5 years ago Code(s): K63.5 - Polyp of colon Plan: Not a great historian will request records for review - Plan will see back after sees cardiology Patient Instructions: A 57-year-old female personal history of colon polyps referred for colonoscopy She has upcoming appointment with Cardiology-in which she has many concerns She will follow back with us so that we may schedule her appropriately. She is agreeable to the plan-reinforced importance of follow through with history of polyps She will keep a food diary to try to identify specific foods Encouraged to call with any questions or concerns Appreciate the opportunity assist in the care the patient Coding Level of Care Code Est Pt Level 4 (95204) Diagnoses Colon polyps K63.5 Time Spent (min) 35 Comment Electronic Warfare Technical
== END 2023-08-30 14:38 | disposition home or self-care (01) ==
PROVIDERS: PCP Internal Medicine; Visit Provider Physician Assistant
DX: K63.5 Polyp of colon (principal)
CPT/HCPCS: 99214

== ENCOUNTER → 2023-08-30 13:41 | Outpatient (BNVA) | payer OTHER, SELFPAY | PROVIDERS: PCP Internal Medicine; Visit Provider Physician Assistant | DX: K63.5 Polyp of colon (principal); R53.83 Other fatigue | CPT/HCPCS: 99212 ==

== ENCOUNTER 2023-10-11 08:43 | Outpatient (REF) | payer OTHER, SELFPAY ==
[2023-10-11 10:16] LABS: Alanine Aminotransferase 22 U/L (0-31); Albumin Level 4.2 g/dL (3.5-5.0); Alkaline Phosphatase 131 U/L (39-117); Anion Gap 15 (12-20); Aspartate Amino Transferase 21 U/L (5-31); Bilirubin Total 0.3 mg/dL (0.0-1.0); Blood Urea Nitrogen 16 mg/dL (9-16); Calcium 9.9 mg/dL (8.4-10.2); Carbon Dioxide 24 mmol/L (22-29); Chloride 108 mmol/L (96-108); Cholesterol 189 mg/dL (<200); Estimated Glomerular Filt Rate > 60; Glucose Fasting 99 mg/dL (60-99); HDL Cholesterol 76 mg/dL (>40); LDL Cholesterol Calculated 102 mg/dL (<100); Potassium 4.2 mmol/L (3.3-5.1); Sodium 143 mmol/L (135-145); Total Protein 7.5 g/dL (6.5-8.0); Triglycerides 59 mg/dL (<150)
[2023-10-11 10:31] LABS: Thyroid Stimulating Hormone 2.69 uIU/mL (0.32-4.0)
== END 2023-10-11 08:44 | disposition home or self-care (01) ==
LOC: HO.LAB 08:43
PROVIDERS: PCP Internal Medicine; Visit Provider Internal Medicine
DX: E89.0 Postprocedural hypothyroidism (principal); E55.9 Vitamin D deficiency, unspecified; E78.5 Hyperlipidemia, unspecified; M70.50 Other bursitis of knee, unspecified knee
CPT/HCPCS: 36415; 80053; 80061; 82306; 84443

== ENCOUNTER 2023-10-12 14:11 | Outpatient (AMB) | payer OTHER, SELFPAY ==
[2023-10-12 14:18] VITALS: BP 114/70; BMI 37.6
--- NOTE | 2023-10-12 14:18 | MHC.PC.OV ---
Vital Signs 10/12/23 14:18 Height 5 ft 3 in Weight 212 lb BMI 37.6 BP 114/70 Blood Pressure Location Lt brachial Position Sitting Intake Visit Reasons: Annual Exam Intake Note: Patient here for a physical exam Managed Services Sales Consultant Required: No Accompanied by: Self / Same As Patient Allergies naproxen [From NAPROSYN] Allergy (Mild, Verified 10/12/23 14:50) SWELLING, tongue swelling Medication List - Last Reconciled 10/12/23 by Corry Calhoun MD albuterol sulfate 90 mcg/actuation 1 inh inhalation QID PRN 1 week levothyroxine 125 mcg PO DAILY 90 days multivitamin 1 tab PO DAILY Tobacco use date assessed: 10/12/23 Dental Screening Dental Screen Date: 10/12/23 Did you have a dental visit in the last 12 months?: Yes Did you have a dental problem in the last 6 months where you did not have access to dental care?: No Was dental information given to patient?: Patient has dentist HPI HPI Comments History of Present Illness Details This is a 57-year-old female that comes for her physical exam. Last mammogram was over a year ago. Last Pap smear was over 5 years ago. No chest pain or shortness of breath. Follows with cardiology due to moderate aortic regurgitation and mild aortic stenosis. Complains of dyspnea on exertion. She is obese with a BMI of 37.6 and I will prescribe Wegovy. Has tried diet and exercise with no significant improvement. [facility] Medical History (Updated 10/12/23 @ 15:05 by Corry Calhoun MD) Physical exam Obesity due to excess calories Colon polyps Sleep apnea Vitamin D deficiency Postablative hypothyroidism Microscopic hematuria Low back pain Hypothyroidism Right lower quadrant abdominal pain Surgical History S/P cataract extraction Hx of colonoscopy History of thyroidectomy History of hand surgery Hx of thumb surgery Family History (Updated 10/12/23 @ 14:57 by Corry Calhoun MD) Father CHF (congestive heart failure) Pacemaker Mother CAD (coronary artery disease) Palpitations Maternal Aunt Thyroid disease Liver cancer Sister No problems noted. Son No problems noted. 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 1. Little interest or pleasure in doing things: not at all 2. Feeling down, depressed, or hopeless: not at all 3. Trouble falling or staying asleep, or sleeping too much: not at all 4. Feeling tired or having little energy: not at all 5. Poor appetite or overeating: not at all 6. Feeling bad about yourself - or that you are a failure or have let yourself or your family down: not at all 7. Trouble concentrating on things, such as reading the newspaper or watching television: not at all 8. Moving or speaking so slowly that other people could have noticed. Or the opposite - being so fidgety or restless that you have been moving around a lot more than usual: not at all 9. Thoughts that you would be better off or of hurting yourself in some way: not at all Total score: 0 Depression Screening Interpretation: Negative Depression Screening Done: Yes 59871 - PHQ-9 Billing: Yes Source: Developed by Drs. Boubacar Arambula, Brittany Martin, Frank Rodriguez and colleagues, with an educational imelda from [employer]. Thrive Questionnaire Date Thrive assessed: 10/12/23 I am a: Patient What is your living situation today?: I have a steady place to live Within the past 12 months, did the food you bought not last and you didn't have the money to get more?: Never true Within the past 12 months, did you worry whether your food would run out before you got money to buy more?: Never true Do you have trouble paying for medicines?: No Do you have trouble getting transportation to medical appointments?: No Do you have trouble paying your heating and electricity bill?: No Do you have trouble taking care of your child, family member or friend?: No Do you have trouble with day-to-day activities such as bathing, preparing meals, shopping, managing finances, etc.?: No Are you currently unemployed and looking for a job?: No Are you interested in more education?: No Please select the resources that you would like help with: None Currently or been in a relationship where the following occur: no concerns reported THRIVE Score: 0 AUDIT C Alcohol Use Questionnaire (AUDIT-C) 1. How often do you have a drink containing alcohol?: Monthly or less 2. How many drinks containing alcohol do you have on a typical day when you are drinking?: 1 or 2 3. How often do you have six or more drinks on one occasion?: Never Total Score: 1 KERRY-7 AMB Questionnaire KERRY-7 Date KERRY - 7 assessed: 10/12/23 Feeling nervous, anxious, or on edge: 0 = Not at all Not being able to stop or control worryin = Not at all Worrying too much about different things: 0 = Not at all Trouble relaxin = Not at all Being so restless that it is hard to sit still: 0 = Not at all Becoming easily annoyed or irritable: 0 = Not at all Feeling afraid as if something awful might happen: 0 = Not at all Total KERRY-7 score (0-4 normal; 5-9 mild; 10-14 moderate; 15-21 severe): 0 Source: Developed by Drs. Boubacar Arambula, Brittany Martin, Frank Rodriguez and colleagues, with an educational imelda from [employer]. KERRY-7 Assessment Billing KERRY-7 Assessment Tool: KERRY-7 Assessment 76191 Review of Systems Const All systems reviewed & are unremarkable except as noted in HPI and below Eyes Reports no additional complaints, Denies change in vision and Denies other visual disturbances Card Denies chest pain at rest, Denies chest pain with activity, Denies edema, Denies irregular heart rhythm, Denies claudication, Denies dyspnea, Reports dyspnea on exertion, Denies orthopnea, Denies paroxysmal nocturnal dyspnea and Denies slow heart rate Resp Denies cough, Denies dyspnea and Reports dyspnea on exertion GI Denies abdominal pain, Denies change in bowel habits, Denies excessive flatus, Denies nausea and Denies vomiting Denies urinary incontinence, Denies urinary hesitancy and Denies urinary urgency Physical exam (Primary Care) Vital Signs: Last Vital Signs BP 114/70 10/12/23 14:18 BMI result Body Mass Index 37.6 Tobacco/Smoking Status: Tobacco use Status Tobacco use date assessed 10/12/23 10/12/23 14:25 Patient Tobacco Use Status Former Tobacco user 10/12/23 14:25 Tobacco use type Cigarette 10/12/23 14:25 e-Cigarette/Vaping Use Never Used 10/12/23 14:25 PHQ-9: PHQ-9 Score PHQ-9: Total score 0 10/12/23 14:25 Depression Screening Interpretation: Negative Thrive Assessment: Date of Thrive Assessment Date Thrive assessed 10/12/23 10/12/23 14:25 Currently or been in a relationship where the following occur: no concerns reported Const Orientation/consciousness: patient oriented x3 HENMT Head: Yes normal to inspection, Yes normocephalic and Yes atraumatic Ears: external ears normal Eyes General: appearance normal, both eyes and all related structures Eyelids: Yes eyelids normal Conjunctivae: conjunctivae normal Neck Neck: Yes normal visual inspection and Yes supple Resp Effort & Inspection: normal respiratory effort Auscultation: clear to auscultation bilaterally Cardio Jugular venous distension: no JVD Rate: regular rate Rhythm: regular rhythm Heart sounds: S1 normal heart sound present and S2 normal heart sound present GI Inspection: Yes normal to inspection Palpation (GI): Soft to palpation and nontender Auscultation: normal bowel sounds Skin General skin exam: no rashes or lesions noted Neuro General: patient oriented x3 and no focal motor deficits Extrem General: Yes full ROM Psych Appearance: grossly normal Assessment and Plan Assessment & Plan (1) Physical exam: Code(s): Z00.00 - Encounter for general adult medical examination without abnormal findings Plan: Repeat in a year. Orders: Orders MM screening mammo BI Today Z12.31 - Encounter for screening mammogram for malignant neoplasm of breast Thyroid Stimulating Hormone 6 Months E03.9 - Hypothyroidism, unspecified Referrals AIRPLANE PILOT HELPER Referral Z12.4 - Encounter for screening for malignant neoplasm of cervix Medications: New semaglutide (weight loss) (Wegovy) administer weeks 1 through 4 of therapy 0.25 mg (0.5 mL) subcut QWEEK 30 days 2.5 mL 0RF E66.9 - Obesity, unspecified, Z68.37 - Body mass index [BMI] 37.0-37.9, adult Coding Level of Care Code Est Pt Prev Care 40-64y(62050) Diagnoses Physical exam Z00.00 Additional Codes KERRY-7 Assessment Billing - KERRY-7 Assessment Tool: KERRY-7 Assessment 05028 ([id number]) Time Spent (min) 33
== END 2023-10-12 15:14 | disposition home or self-care (01) ==
PROVIDERS: PCP Internal Medicine; Visit Provider Internal Medicine
DX: Z00.00 Encounter for general adult medical examination without abnormal findings (principal)
CPT/HCPCS: 99396

== ENCOUNTER 2023-10-28 14:40 | Outpatient (REF) | payer OTHER, SELFPAY ==
--- NOTE | ~2023-10-28 | MM_ITS ---
EXAMINATION: MM SCREENING DIGITAL BREAST TOMOSYNTHESIS, BILATERAL CLINICAL INFORMATION: Screening. Asymptomatic. COMPARISON: Mammography: This study is compared with prior exams dating back to 2016. TECHNIQUE: Digital breast tomosynthesis is performed in both the craniocaudal and mediolateral oblique views along with computer-aided detection (CAD). Synthesized 2D images are generated from the tomosynthesis. FINDINGS: There are scattered areas of fibroglandular density (ACR BI-RADS breast composition Category b). There are no significant masses, abnormal calcifications, or other abnormalities. MM/MM tomosynthesis screening BI IMPRESSION: No mammographic evidence of malignancy. ASSESSMENT: BI-RADS BI-RADS 1 - Negative RECOMMENDATION: Routine annual mammography screening. 1 year F/U This examination should not preclude the clinical evaluation of a suspicious palpable abnormality. This patient's information was entered into a reminder system with a target due date for their next mammogram.
== END 2023-10-28 14:41 | disposition home or self-care (01) ==
LOC: HO.MAMMO 14:40
PROVIDERS: PCP Internal Medicine; Visit Provider Internal Medicine
DX: Z12.31 Encounter for screening mammogram for malignant neoplasm of breast (principal)
CPT/HCPCS: 77063; 77067

== ENCOUNTER → 2023-10-28 14:45 | Outpatient (BNV) | payer OTHER, SELFPAY | PROVIDERS: PCP Internal Medicine; Visit Provider Radiology Diagnostic Radiology | DX: Z12.31 Encounter for screening mammogram for malignant neoplasm of breast (principal) | CPT/HCPCS: 77063; 77067 ==

== ENCOUNTER 2023-11-12 09:40 | Outpatient (REF) | payer OTHER, SELFPAY ==
[2023-11-19 03:49] LABS: HPV mRNA E6/E7 rflx Not Detected (Not Detected)
== END 2023-11-12 09:41 | disposition home or self-care (01) ==
LOC: HO.LAB 09:40
PROVIDERS: PCP Internal Medicine; Visit Provider Advanced Practice Midwife
DX: Z01.419 Encounter for gynecological examination (general) (routine) without abnormal findings (principal); E66.9 Obesity, unspecified; Z12.39 Encounter for other screening for malignant neoplasm of breast
CPT/HCPCS: 87624; 88142; 99386

== ENCOUNTER 2023-11-12 09:40 | Outpatient (AMB) | payer OTHER, SELFPAY ==
--- NOTE | 2023-11-12 09:58 | A.OFFVIS_ITS ---
Vital Signs 11/12/23 10:03 Height 5 ft 3 in Weight 214 lb BMI 37.9 BP 120/70 Intake Visit Reasons: MANAGEMENT TECH,Annual Revenue Stamper Required: No Information Interpreted: clinical only Terrazzo Mechanic Helper: Terrazzo Mechanic Helper Present Allergies naproxen [From NAPROSYN] Allergy (Mild, Verified 11/12/23 10:04) SWELLING, tongue swelling Medication List - Last Reconciled 11/12/23 by Varsha Choi CNM albuterol sulfate 90 mcg/actuation 1 inh inhalation QID PRN 1 week levothyroxine 125 mcg PO DAILY 90 days multivitamin 1 tab PO DAILY semaglutide (weight loss) (Wegovy) 0.25 mg (0.5 mL) subcut QWEEK 30 days Is last menstrual period known: No Post menopausal: Yes (2017) Do you need a note to return to daycare/school/sports/work: No HPI HPI MANAGEMENT TECH,Annual: Details: 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 Many years ago she recalls having her babies at [facility] and went for care at [facility] in [facility]. 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 She tries to be very active she likes walking playing tennis is she walks around the track at [employer] she likes playing baseball and softball and she is very with her kids and grand kids. She has not sexually active and has not been for few years and declines any testing for STIs. She is postmenopausal. [facility] Medical History Physical exam Obesity due to excess calories Colon polyps Sleep apnea Vitamin D deficiency Postablative hypothyroidism Microscopic hematuria Low back pain Hypothyroidism Right lower quadrant abdominal pain Surgical History S/P cataract extraction Hx of colonoscopy History of thyroidectomy History of hand surgery Hx of thumb surgery Family History Father CHF (congestive heart failure) Pacemaker Mother CAD (coronary artery disease) Palpitations Maternal Aunt Thyroid disease Liver cancer Sister No problems noted. Son No problems noted. 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 Current occupational exposures/hazards: No Cognitive needs: No Hearing needs: No Vision needs: Yes Female Reproductive History Menstrual Age of Menarche: 12 Duration of menses: 3-5 days control method: none Total pregnancies: 4 Full term: 3 History of abnormal pap smear: No (2018,neg,per patient) Date of Mammogram: 10/28/23 (negative) Physical Exam Vital Signs: Last Vital Signs BP 120/70 11/12/23 10:03 BMI result Body Mass Index 37.9 Const General: healthy appearing, comfortable, no acute distress, well developed and alert Nutritional Appearance: average body habitus Orientation/consciousness: patient oriented x3 Limitations: no limitations HEENT Head: Yes normocephalic Neck Neck: Yes normal visual inspection Chest Chest palpation & inspection: normal inspection of the chest Breast/axilla inspection: normal inspection of the breasts and normal inspection of the axillae Breast/axilla palpation: normal palpation of the breasts and normal palpation of the axillae Resp Effort & Inspection: normal respiratory effort GI Inspection: Yes normal to inspection, No Abdominal wall edema and No distended Palpation (GI): Soft to palpation and nontender Other: External exam within normal limits vagina pink moist cervix multiparous pink moist some atrophic changes but not much. Uterus slightly challenging to feel but not enlarged adnexa not enlarged and nontender good tone Kegel. General: Yes bladder normal to palpation External Female Exam: normal external appearance and normal appearance of the urethra Speculum Exam - Vagina: normal appearance of the vagina, normal palpation and normal vaginal discharge Speculum Exam - Cervix: normal appearance of the cervix, normal palpation and nontender Bimanual exam- vagina & uterus: normal bimanual exam, normal palpation, uterine size normal, bladder normal to palpation, consistency normal, normal palpation, uterine mobility normal, uterine shape normal, No Cervical tenderness present, non-tender and no cervical motion tenderness Bimanual Exam- Adnexa, other: normal adnexae, no masses, normal and No adnexal tenderness Neuro General: patient oriented x3 Assessment & Plan Assessment & Plan (1) Class 2 obesity with body mass index (BMI) of 37.0 to 37.9 in adult: Code(s): E66.9 - Obesity, unspecified; Z68.37 - Body mass index [BMI] 37.0-37.9, adult Category: Medical (2) Screening for cervical cancer: Comment: Pap done 11/12/2023. Code(s): Z12.4 - Encounter for screening for malignant neoplasm of cervix Category: Medical (3) Breast cancer screening: Code(s): Z12.39 - Encounter for other screening for malignant neoplasm of breast Category: Medical (4) Women's annual routine gynecological examination: Code(s): Z01.419 - Encounter for gynecological examination (general) (routine) without abnormal findings Category: Medical Plan -----Discussed in this visit the following: healthy balanced diet, regular and consistent exercise, getting recommended health screens, doing the best she can for her particular health concerns, kegel exercises, pap smear screening and followup recommendations, mammography screening and SBE, normal changes in cycles in her life stage--- Encouraged her to continue in all her efforts to lose weight, and reminded her the it can have benefits for her heart as well. . She says she just had her mammogram a couple weeks ago. She likes staying active with her kids and intends to keep working on the weight loss she just started medication. She says she is up-to-date on everything.. She declined STI testing.. If this Pap smear is negative we will see her in 1 year she would be due for another 1 for 5 years. She feels pretty sure that this CNM was with her the of 1 or more of her children possibly baby born in 1989 she intends to bring pictures next time. Orders: Orders Pap Smear Today Z01.419 - Encounter for gynecological examination (general) (routine) without abnormal findings Coding Level of Care Code New Pt Prev Care 40-64y(24551) Diagnoses Class 2 obesity with body mass index (BMI) of 37.0 to 37.9 in adult E66.9; Z68.37 Screening for cervical cancer Z12.4 Breast cancer screening Z12.39 Women's annual routine gynecological examination Z01.419
[2023-11-12 10:03] VITALS: BP 120/70; BMI 37.9
== END 2023-11-12 10:52 | disposition home or self-care (01) ==
LOC: HO.HWSM 09:40
PROVIDERS: PCP Internal Medicine; Visit Provider Advanced Practice Midwife
DX: Z01.419 Encounter for gynecological examination (general) (routine) without abnormal findings (principal); E66.9 Obesity, unspecified; Z68.37 Body mass index [BMI] 37.0-37.9, adult
CPT/HCPCS: 99386

== ENCOUNTER 2023-12-03 12:20 | Outpatient (AMB) | payer OTHER, SELFPAY ==
--- NOTE | 2023-12-03 12:26 | MHC.OFFWIV ---
Intake Vital Signs 12/03/23 12:27 Height 5 ft 3 in Weight 211 lb BMI 37.4 BP 112/70 Blood Pressure Location Lt brachial Position Sitting Pulse 78 Pulse Source Pulse Oximeter Temp 97.8 F Temp Source Oral Pulse Oximetry (%) 98 Oxygen Delivery Method Room Air Intake Visit Reasons: EP Burn on finger/?infection Intake Note: pt is here for burn on finger over a month ago, not healing Patient Tobacco Use Status: Former Tobacco user Allergies naproxen [From NAPROSYN] Allergy (Mild, Verified 12/03/23 12:30) SWELLING, tongue swelling Medication List - Last Reconciled 12/03/23 by Scott Ochoa MD albuterol sulfate 90 mcg/actuation 1 inh inhalation QID PRN 1 week levothyroxine 125 mcg PO DAILY 90 days multivitamin 1 tab PO DAILY semaglutide (weight loss) (Wegovy) 0.25 mg (0.5 mL) subcut QWEEK 30 days Do you need a note to return to daycare/school/sports/work: No HPI EP Burn on finger/?infection HPI Details Patient is a 58-year-old female who burned her left hand middle finger distal phalanx palmar aspect cleaning a hot stove 2 weeks ago Patient says that it was healing well until she tried to peel it off, and now it is tender and inflamed at the tip On examination she is able to move her finger without any pain distal phalanx is tender to pressure There is no fluctuation there is no open skin there is no pus. I am treating her with Augmentin b.i.d. for 7 days Tetanus vaccine given Patient was instructed to avoid chemicals until healed And keep hand covered if she is cleaning anything with that. ? Ordered Date 12/03/23 Dispensed Units mL (1 x 0.5 mL) ? Lot Number ? Expiration NDC ? Assembly Machine Tender [id number] ? GLAXMake My plateKLINE ? ? PFSH Medical History Physical exam Obesity due to excess calories Colon polyps Sleep apnea Vitamin D deficiency Postablative hypothyroidism Microscopic hematuria Low back pain Hypothyroidism Right lower quadrant abdominal pain Surgical History S/P cataract extraction Hx of colonoscopy History of thyroidectomy History of hand surgery Hx of thumb surgery Family History Father CHF (congestive heart failure) Pacemaker Mother CAD (coronary artery disease) Palpitations Maternal Aunt Thyroid disease Liver cancer Sister No problems noted. Son No problems noted. 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 Current occupational exposures/hazards: No Cognitive needs: No Hearing needs: No Vision needs: Yes Female Reproductive History Menstrual Age of Menarche: 12 Review of Systems Const All systems reviewed & are unremarkable except as noted in HPI and below Physical Exam Vital Signs: Last Vital Signs Temp 97.8 F 12/03/23 12:27 Pulse 78 12/03/23 12:27 BP 112/70 12/03/23 12:27 Pulse Ox 98 12/03/23 12:27 Oxygen Delivery Method Room Air 12/03/23 12:27 BMI result Body Mass Index 37.4 Const General: no acute distress Orientation/consciousness: patient oriented x3 Eyes General: appearance normal, both eyes and all related structures Resp Effort & Inspection: normal respiratory effort and able to speak in complete sentences Neuro General: patient oriented x3 Extrem Hand/finger images: 1. Erythema and pain with pressure, no fluctuation, no discharge, no skin sores, range of motion intact, sensory intact, radial pulse 2 + Psych Mental Status: mental status grossly normal Assessment & Plan Assessment & Plan (1) Infected finger: Code(s): L08.9 - Local infection of the skin and subcutaneous tissue, unspecified Plan Patient is a 58-year-old female who burned her left hand middle finger distal phalanx palmar aspect cleaning a hot stove 2 weeks ago Patient says that it was healing well until she tried to peel it off, and now it is tender and inflamed at the tip On examination she is able to move her finger without any pain distal phalanx is tender to pressure There is no fluctuation there is no open skin there is no pus. I am treating her with Augmentin b.i.d. for 7 days Tetanus vaccine given Patient was instructed to avoid chemicals until healed And keep hand covered if she is cleaning anything with that. Tetanus vaccine given Orders: Orders TDaP Immunization Today Z23 - Encounter for immunization Medications: New amoxicillin-pot clavulanate 500-125 mg (Augmentin) 1 tab PO Q12H 14 tabs 0RF 7 days Coding Level of Care Code Est Pt Level 3 (78167) Diagnoses Infected finger L08.9
[2023-12-03 12:27] VITALS: BP 112/70; PULSE 78; TEMP 36.6; O2SAT 98; BMI 37.4
== END 2023-12-03 12:45 | disposition home or self-care (01) ==
PROVIDERS: PCP Internal Medicine; Visit Provider Internal Medicine
DX: Z23 Encounter for immunization (principal); L08.9 Local infection of the skin and subcutaneous tissue, unspecified
CPT/HCPCS: 90471; 90715; 99213

== ENCOUNTER 2023-12-22 11:25 | Outpatient (AMB) | payer OTHER, SELFPAY ==
[2023-12-22 11:44] VITALS: BP 118/80; PULSE 79; O2SAT 98; BMI 37.4
--- NOTE | 2023-12-22 11:44 | AM.OFFWIN_ITS ---
Intake Vital Signs 12/22/23 11:44 Height 5 ft 3 in Weight 211 lb BMI 37.4 BP 118/80 Blood Pressure Location Lt brachial Position Sitting Pulse 79 Pulse Source Pulse Oximeter Temp Source Oral Pulse Oximetry (%) 98 Oxygen Delivery Method Room Air Intake Visit Reasons: EP ?fungus LT middle finger/antibiotics Intake Note: pt here c/o LT mid finger. ? fungal infection. Used nail file on open burn from stove Patient Tobacco Use Status: Former Tobacco user Allergies naproxen [From NAPROSYN] Allergy (Mild, Verified 12/22/23 11:57) SWELLING, tongue swelling Do you need a note to return to daycare/school/sports/work: No HPI HPI Comments History of Present Illness Details Patient is a 58yo F who presents with L 3rd digit wound She is R hand dominant Was seen here on 12/02 by PCP for L 3rd digit burn She on hot stove when cleaning Was given augmentin and finished Has been using topical antibiotic and covering occasionally States skin worse after shaving down the area and thinks she has an infection + 9/10 pain with palpation Slight numbness to tip where burnt No discharge or drainage Denies fever or chills PFSH Medical History Physical exam Obesity due to excess calories Colon polyps Sleep apnea Vitamin D deficiency Postablative hypothyroidism Microscopic hematuria Low back pain Hypothyroidism Right lower quadrant abdominal pain Surgical History S/P cataract extraction Hx of colonoscopy History of thyroidectomy History of hand surgery Hx of thumb surgery Family History Father CHF (congestive heart failure) Pacemaker Mother CAD (coronary artery disease) Palpitations Maternal Aunt Thyroid disease Liver cancer Sister No problems noted. Son No problems noted. 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 Current occupational exposures/hazards: No Cognitive needs: No Hearing needs: No Vision needs: Yes Female Reproductive History Menstrual Age of Menarche: 12 Review of Systems Const Denies chills and Denies fever(s) Musc Reports joint swelling (L 3rd digit distal edema) Skin/Breast Reports non-healing lesions, Reports skin pain and Reports wounds Neuro Reports paresthesias (slight numbness L 3rd digit fingertip) Physical Exam Vital Signs: Last Vital Signs Pulse 79 12/22/23 11:44 BP 118/80 12/22/23 11:44 Pulse Ox 98 12/22/23 11:44 Oxygen Delivery Method Room Air 12/22/23 11:44 BMI result Body Mass Index 37.4 General: Non-toxic, NAD. Speaking full sentences; denies oncology rep Skin: Warm dry throughout. L 3rd digit distal finger has nail intact without dehiscence or subungal hematoma. Distal fingerpad is dry and has flaky skin patches and exposed slightly erythematous skin inferior. + tender to palpation. No drainage Eye: EOMI Respiratory: No respiratory distres Cardiac: Radial pulse intact LUE MSK: Full ROM digits L hand Neurology: A/O. No aphasia or facial droop. Gait without abnormality Psych: Good mood and affect Assessment & Plan Assessment & Plan (1) Cellulitis: Code(s): L03.90 - Cellulitis, unspecified Qualifiers: Laterality: left Site of cellulitis: extremity Site of cellulitis of extremity: finger Qualified Code(s): L03.012 - Cellulitis of left finger Plan: Bactrim for L 3rd digit edema/erythema Discussed topical mupirocin ointment x 4-5 days Will take time for wound to heal discussed care measures Will f/u with PCP if any new concerns arise (2) Wound, open, finger: Code(s): S61.209A - Unspecified open wound of unspecified finger without damage to nail, initial encounter Qualifiers: Encounter type: subsequent encounter Qualified Code(s): S61.209D - Unspecified open wound of unspecified finger without damage to nail, subsequent encounter Plan: see above Medications: New sulfamethoxazole-trimethoprim 800-160 mg (Bactrim DS) do not take with alcohol 1 tab PO BID 14 tabs 0RF mupirocin 2% 1 appl topical BID 22 grams 0RF 5 days Coding Level of Care Code Est Pt Level 3 (31916) Diagnoses Cellulitis of finger of left hand L03.012 Laterality: left Site of cellulitis: extremity Site of cellulitis of extremity: finger Open wound of finger, subsequent encounter S61.209D Encounter type: subsequent encounter
== END 2023-12-22 12:11 | disposition home or self-care (01) ==
PROVIDERS: PCP Internal Medicine; Visit Provider Physician Assistant
DX: L03.012 Cellulitis of left finger (principal); S61.209D Unspecified open wound of unspecified finger without damage to nail, subsequent encounter
CPT/HCPCS: 99213

== ENCOUNTER 2024-04-13 16:19 | Outpatient (AMB) | payer OTHER, SELFPAY ==
--- NOTE | 2024-04-13 16:25 | A.OFFPC_ITS ---
Vital Signs 04/13/24 16:26 Height 5 ft 3 in Weight 203 lb BMI 36.0 BP 112/64 Blood Pressure Location Lt brachial Position Sitting Intake Visit Reasons: thyroid, aortic regurgitation Intake Note: Patient here for thyroid, Aortic regurgitation Java Software Architect Required: No Accompanied by: Self / Same As Patient Allergies naproxen [From NAPROSYN] Allergy (Mild, Verified 04/13/24 16:37) SWELLING, tongue swelling Medication List - Last Reconciled 04/13/24 by Corry Calhoun MD albuterol sulfate 90 mcg/actuation 1 inh inhalation QID PRN 1 week levothyroxine 125 mcg PO DAILY 90 days multivitamin 1 tab PO DAILY mupirocin 2% 1 appl topical BID 5 days semaglutide (weight loss) (Wegovy) 1 mg (0.5 mL) subcut Q7D 4 weeks semaglutide (weight loss) (Wegovy) 0.5 mg (0.5 mL) subcut QWEEK 4 weeks Tobacco use date assessed: 10/12/23 Dental Screening Dental Screen Date: 10/12/23 HPI HPI Comments History of Present Illness Details This is a 58-year-old female with post ablative hypothyroidism, aortic valve insufficiency, obesity and low vitamin-D that comes today for follow-up on her conditions. TSH and vitamin-D levels will be order to be done today. Aortic valve insufficiency is follow by cardiology and last echocardiogram showed no significant changes and this was in December 2023. She is obese with a BMI of 36 and has been on semaglutide with no side effects and tolerating it well. No chest pain or shortness on breath. [facility] Medical History (Updated 04/14/24 @ 06:48 by Corry Calhoun MD) Class 2 obesity with body mass index (BMI) of 37.0 to 37.9 in adult Physical exam Obesity due to excess calories Colon polyps Sleep apnea Vitamin D deficiency Postablative hypothyroidism Microscopic hematuria Low back pain Hypothyroidism Right lower quadrant abdominal pain Surgical History S/P cataract extraction Hx of colonoscopy History of thyroidectomy History of hand surgery Hx of thumb surgery Family History Father CHF (congestive heart failure) Pacemaker Mother CAD (coronary artery disease) Palpitations Maternal Aunt Thyroid disease Liver cancer Sister No problems noted. Son No problems noted. 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 Boubacar Arambula, Brittany Martin, Frank Rodriguez and colleagues, with an educational imelda from [email or web address]. Review of Systems Const All systems reviewed & are unremarkable except as noted in HPI and below Card Denies chest pain at rest, Denies chest pain with activity, Denies edema, Denies irregular heart rhythm, Denies claudication, Denies dyspnea, Denies dyspnea on exertion, Denies orthopnea, Denies paroxysmal nocturnal dyspnea and Denies slow heart rate Resp Denies cough, Denies dyspnea and Denies dyspnea on exertion GI Denies abdominal pain, Denies change in bowel habits, Denies excessive flatus, Denies nausea and Denies vomiting Neuro Denies lack of coordination Physical exam (Primary Care) Vital Signs: Last Vital Signs BP 112/64 04/13/24 16:26 BMI result Body Mass Index 36.0 BMI Assessment/Plan discussion: High BMI High, discussed plan: lifestyle, weight reduction, dietary and physical activity Tobacco/Smoking Status: Tobacco use Status Tobacco use date assessed 10/12/23 04/13/24 16:36 Patient Tobacco Use Status Former Tobacco user 04/13/24 16:36 Tobacco use type Cigarette 04/13/24 16:36 e-Cigarette/Vaping Use Never Used 04/13/24 16:36 Thrive Assessment: Date of Thrive Assessment Date Thrive assessed 10/12/23 04/13/24 16:36 Resp Effort & Inspection: normal respiratory effort Auscultation: clear to auscultation bilaterally Cardio Jugular venous distension: no JVD Rate: regular rate Rhythm: regular rhythm Heart sounds: S1 normal heart sound present and S2 normal heart sound present Extrem General: Yes full ROM Office Procedures Flu Questionnaire Does the patient have a severe egg allergy?: No Does the patient have severe life threatening allergies?: No Does the patient have a fever or illness today?: No Has the patient ever had Guillain-Clarington Syndrome?: No Has the patient ever had any past reaction to a flu shot?: No Immunizations Fluarix Triv [id number] (PF) 45 mcg (15 mcg x 3)/0.5 mL IM syringe Performing Provider: Corry Calhoun MD [facility] Administered by: ESTEPHANIA Morales on 04/13/24 17:25 Dose Route Admin Location Dispensed Lot Number Expiration Date NDC Sugar Trucker 0.5 mL IM Left Deltoid 0.5 mL [id number] 12/04/24 58726-287-88 [employer] VIS Given Date VIS Provided VIS Publication Date 04/13/24 Single Vaccine 21 Eligibility Eligibility Date Funding Source Not [facility] Eligible 04/13/24 Private Coding Level of Care Code Est Pt Level 4 (62852) Complex EM visit Add On G2211 Diagnoses Postablative hypothyroidism E89.0 Nonrheumatic aortic valve insufficiency I35.1 Cardiac valve disease etiology: nonrheumatic Class 2 obesity due to excess calories without serious comorbidity with body mass index (BMI) of 36.0 to 36.9 in adult E66.812; E66.09; Z68.36 Serious obesity comorbidity presence: without serious comorbidity Hypovitaminosis D E55.9 Time Spent (min) 22 Assessment & Plan Assessment & Plan (1) Postablative hypothyroidism: Code(s): E89.0 - Postprocedural hypothyroidism Category: Medical Plan: Continue levothyroxine. Repeat TSH. (2) Aortic valve insufficiency: Code(s): I35.1 - Nonrheumatic aortic (valve) insufficiency Category: Medical Qualifiers: Cardiac valve disease etiology: nonrheumatic Qualified Code(s): I35.1 - Nonrheumatic aortic (valve) insufficiency Plan: Follow-up with cardiology yearly. (3) Class 2 obesity due to excess calories with body mass index (BMI) of 36.0 to 36.9 in adult: Code(s): E66.812 - Obesity, class 2; E66.09 - Other obesity due to excess calories; Z68.36 - Body mass index [BMI] 36.0-36.9, adult Category: Medical Qualifiers: Serious obesity comorbidity presence: without serious comorbidity Qualified Code(s): E66.812 - Obesity, class 2; E66.09 - Other obesity due to excess calories; Z68.36 - Body mass index [BMI] 36.0-36.9, adult Plan: Continue semaglutide. Continue diet and exercise. (4) Hypovitaminosis D: Code(s): E55.9 - Vitamin D deficiency, unspecified Category: Medical Plan: Repeat vitamin-D levels. Orders: Orders Influenza [id number] Immunization 04/13/24 Z23 - Encounter for immunization Vitamin D 25-OH Total 04/13/24 E55.9 - Vitamin D deficiency, unspecified Medications: Refilled semaglutide (weight loss) (Bigg) 1 mg (0.5 mL) subcut Q7D 2 mL 0RF 4 weeks E66.9 - Obesity, unspecified, Z68.37 - Body mass index [BMI] 37.0-37.9, adult
[2024-04-13 16:26] VITALS: BP 112/64; BMI 36.0
== END 2024-04-13 16:49 | disposition home or self-care (01) ==
LOC: HO.HMCH 16:20
PROVIDERS: PCP Internal Medicine; Visit Provider Internal Medicine
DX: E89.0 Postprocedural hypothyroidism (principal); I35.1 Nonrheumatic aortic (valve) insufficiency; E66.812 Obesity, class 2; Z68.36 Body mass index [BMI] 36.0-36.9, adult; E55.9 Vitamin D deficiency, unspecified

== ENCOUNTER → 2024-04-13 16:19 | Outpatient (BNVA) | payer OTHER, SELFPAY | PROVIDERS: PCP Internal Medicine; Visit Provider Internal Medicine | DX: Z23 Encounter for immunization (principal); E89.0 Postprocedural hypothyroidism; I35.1 Nonrheumatic aortic (valve) insufficiency; E66.812 Obesity, class 2; Z68.36 Body mass index [BMI] 36.0-36.9, adult; E55.9 Vitamin D deficiency, unspecified; Z71.3 Dietary counseling and surveillance | CPT/HCPCS: 90471; 90656; 99212 ==

== ENCOUNTER 2024-04-14 15:22 | Outpatient (REF) | payer OTHER, SELFPAY ==
[2024-04-14 17:58] LABS: Thyroid Stimulating Hormone 0.22 uIU/mL (0.32-4.0); Vitamin D 25-OH Total 27.5 ng/mL (>30)
== END 2024-04-14 15:23 | disposition home or self-care (01) ==
LOC: HO.LAB 15:22
PROVIDERS: PCP Internal Medicine; Visit Provider Internal Medicine
DX: E03.9 Hypothyroidism, unspecified (principal); E55.9 Vitamin D deficiency, unspecified
CPT/HCPCS: 36415; 82306; 84443

== ENCOUNTER 2024-06-26 15:26 | Outpatient (AMB) | payer OTHER, SELFPAY ==
[2024-06-26 15:30] VITALS: BP 144/78; PULSE 88; O2SAT 99; BMI 38.0
--- NOTE | 2024-06-26 15:30 | A.OFFVIS_ITS ---
Vital Signs 06/26/24 15:30 Height 5 ft 3 in Weight 214 lb 11.684 oz BMI 38.0 BP 144/78 H Blood Pressure Location Rt brachial Position Sitting Pulse 88 Pulse Source Pulse Oximeter Pulse Oximetry (%) 99 Oxygen Delivery Method Room Air Intake Visit Reasons: acid reflux / 3 yrs colo recall Intake Note: ESTABLISHED PATIENT Reason; Re Est. ~ 10 mo FU. GERD + recall colo. Changes/concerns? NO significant concerns per pt. Pt has been doing well with diet changes and is due for recall. Supervisor Print Line Required: Yes Supervisor Print Line Services: Supervisor Print Line Present Supervisor Print Line Name: [id number] Terrie. Information Interpreted: non-clinical & clinical Allergies naproxen [From NAPROSYN] Allergy (Mild, Verified 06/26/24 15:30) SWELLING, tongue swelling HPI HPI acid reflux / 3 yrs colo recall: Details: LAST VISIT WITH SHANE MONROY 08/30/2023 Findings: Terminal Ileum: Not evaluated Cecum:? Normal Ascending Colon:? A 2 cms yellowish benign appearing nodule in the proximal ascending colon - biopsies obtained Transverse Colon:? A 4-5 mm sessile polyp removed with a cold bx. Descending Colon:? Moderate diverticulosis Sigmoid Colon:? Two 8-10 mm sessile polyps removed with a cold snare and a 6-7 mm diminutive appearing polyp removed with a cold bx.? Moderate diverticulosis Rectum:? A 10-12 mm sessile polyp removed with a hot snare Ano-rectum:? Moderate internal hemorrhoids Colon preparation:? Good? Impression and Post Procedure Diagnosis: Colonoscopy Findings: Five small to medium sized polyps removed A 2 cms yellowish benign appearing nodule in the proximal ascending colon - likely submucosal lipoma Moderate diverticulosis seen in the left colon Plan: Await pathology results Repeat Colonoscopy interval based on path results - in 3-5 years if polyps are adenomatous and 5 years if polyps are hyperplastic due to positive family hx. Above findings were reviewed with the patient and colon polyps and diverticulosis handouts were given in the discharge area Surgeon:?Jeancarlos Savage MD Name: Mela Jurado I Age/Sex: 55/F Attending: Jeancarlos Savage MD : 1965 Submitted by: Jeancarlos Savage MD Copies to: Corry Urena MD MR #: [id number] Status: [facility] Collected: 02/07/21 [facility] Received: 02/07/21 Diagnosis A. Colon, ascending nodule, biopsy: Polypoid fragments of colonic mucosa with lamina propria edema (nonspecific); negative for dysplasia and carcinoma. B. Colon, transverse, polypectomy: Tubular adenoma; negative for high grade dysplasia and carcinoma. C. Colon, sigmoid, polypectomies: Fragments of tubular adenoma(s); negative for high grade dysplasia and carcinoma. Separate fragments of colonic mucosa within normal limits . D. Rectum, polypectomy: Hyperplastic polyp. TODAY'S VISIT Patient is here today for follow-up previously seen by Shane Monroy, last colonoscopy in 2019 on showed tubular adenoma without high-grade dysplasia or carcinoma. Recommendation was made for patient to return for colonoscopy in 3-5 years. Patient denies any ill effects from the prep, anesthesia or procedure itself. Patient had no issues during last colonoscopy. Not on any anticoagulation medication. Denies any history sleep apnea. Patient denies any cardiac or respiratory symptoms. [facility] Medical History Class 2 obesity with body mass index (BMI) of 37.0 to 37.9 in adult Physical exam Obesity due to excess calories Colon polyps Sleep apnea Vitamin D deficiency Postablative hypothyroidism Microscopic hematuria Low back pain Hypothyroidism Right lower quadrant abdominal pain Surgical History S/P cataract extraction Hx of colonoscopy History of thyroidectomy History of hand surgery Hx of thumb surgery Family History Father CHF (congestive heart failure) Pacemaker Mother CAD (coronary artery disease) Palpitations Maternal Aunt Thyroid disease Liver cancer Sister No problems noted. Son No problems noted. 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 Current occupational exposures/hazards: No Cognitive needs: No Hearing needs: No Vision needs: Yes Female Reproductive History Menstrual Age of Menarche: 12 Review of Systems Const Denies weight gain and Denies weight loss ENT Reports no additional complaints, Denies dysphagia and Denies odynophagia Card Reports no additional complaints Resp Reports no additional complaints GI Denies abdominal pain, Denies belching, Denies melena, Denies bloating, Denies change in bowel habits, Reports constipation (Occasional), Denies dysphagia, Denies excessive flatus, Denies dyspepsia, Reports heartburn (Occasional), Denies diarrhea, Denies loose stools, Denies nausea, Denies odynophagia and Denies vomiting Reports no additional complaints Musc Reports no additional complaints Neuro Reports no additional complaints Psych Reports no additional complaints Endo Reports no additional complaints Physical Exam Vital Signs: Last Vital Signs Pulse 88 06/26/24 15:30 BP 144/78 H 06/26/24 15:30 Pulse Ox 99 06/26/24 15:30 Oxygen Delivery Method Room Air 06/26/24 15:30 BMI result Body Mass Index 38.0 Const General: healthy appearing and no acute distress Nutritional Appearance: obese Orientation/consciousness: patient oriented x3 Resp Effort & Inspection: normal respiratory effort, able to speak in complete sentences, no tracheal deviation and symmetric chest movement Auscultation: clear to auscultation bilaterally Cardio Rate: regular rate GI Inspection: Yes normal to inspection, No distended and Yes obesity Palpation (GI): Soft to palpation, not firm, nontender and No hepatosplenomegaly present Auscultation: normal bowel sounds General: Yes no CVA tenderness Back/Spine/Pelvis Back: no CVA tenderness Skin General skin exam: elasticity normal, turgor normal and dry skin Neuro General: patient oriented x3 Psych Appearance: grossly normal Mental Status: mental status grossly normal Assessment & Plan Assessment & Plan (1) Screen for colon cancer: Code(s): Z12.11 - Encounter for screening for malignant neoplasm of colon (2) Tubular adenoma of colon: Code(s): D12.6 - Benign neoplasm of colon, unspecified (3) Constipation: Code(s): K59.00 - Constipation, unspecified Qualifiers: Constipation type: slow transit constipation Qualified Code(s): K59.01 - Slow transit constipation Plan Patient will try to take Dulcolax daily as she does have a symptoms of constipation. Patient was encouraged to try to take it is specially the week of the procedure. Split MiraLax prep and Dulcolax ordered. What to expect before during and after procedure discussed with patient. Stressed the importance of good bowel prep and clear liquid diet day before procedure. Patient denies any cardiac or respiratory symptoms. Not on any anticoagulation medication. Patient will follow-up in our office after the procedure. Patient was encouraged to call us if she will have any concerns or any GI symptoms. She is agreeable to this plan and verbalizes understanding of instructions. She was given the opportunity to ask questions and all questions answered. Thank you for allowing me to participate in her care Medications: New bisacodyl (Dulcolax (bisacodyl)) 10 mg (2 x 5 mg) PO BEDTIME 60 tabs 4RF polyethylene glycol 3350 (Miralax) As directed by gastroenterology department at [facility] 238 grams PO ONCE 238 grams 0RF Z12.11 - Encounter for screening for malignant neoplasm of colon Coding Level of Care Code New Pt Level 3 (04792) Diagnoses Screen for colon cancer Z12.11 Tubular adenoma of colon D12.6 Slow transit constipation K59.01 Constipation type: slow transit constipation Time Spent (min) 40 Comment 30 minutes spent with patient and additional 10 minutes spent reviewing her records
== END 2024-06-26 16:43 | disposition home or self-care (01) ==
PROVIDERS: PCP Internal Medicine; Visit Provider Nurse Practitioner Family
DX: Z01.818 Encounter for other preprocedural examination (principal); Z12.11 Encounter for screening for malignant neoplasm of colon; Z86.0101 Personal history of adenomatous and serrated colon polyps; K59.01 Slow transit constipation
CPT/HCPCS: 99202

== ENCOUNTER → 2024-06-26 15:26 | Outpatient (BNVA) | payer OTHER, SELFPAY | PROVIDERS: PCP Internal Medicine; Visit Provider Nurse Practitioner Family | DX: K59.01 Slow transit constipation (principal); D12.6 Benign neoplasm of colon, unspecified | CPT/HCPCS: 99202 ==

== ENCOUNTER 2024-06-30 15:38 | Emergency (ER) | payer OTHER, SELFPAY ==
--- OUTSIDE RECORDS SUMMARY | 2024-06-30 16:51 | XMS_ITS | Clinical Summary ---
Author Organization [employer] Address [address] [place] [address] Care Team Providers Care Field Artillery Officer Name Role Phone Unavailable Primary Care Provider Unavailabl e Social History Tobacco Use Types Packs/Day Years Used Date Smoking Tobacco: Never Assessed Comments Unknown Sex and Gender Information Value Date Recorded Sex Assigned at Female 04/06/2022 10:14 AM EDT Legal Sex Female 10:14 AM EDT Gender Identity Female 04/06/2022 10:14 AM EDT Sexual Orientation Don't know 04/06/2022 10 :14 AM EDT Plan of Treatment Health Maintenance Due Date Last Done Comments CT Colonography 1965 Colonoscopy 1965 Colorectal Cancer Screening 1965 Depression Screening 1965 FIT DNA/Cologuard 1965 FIT 1965 FOBT 1965 Sigmoidoscopy 1965 Alcohol/Substance Use Screening 1977 Tobacco Screening 1977 Hepatitis B Vaccines (1 of 3 - 19+ 3-dose series) 1984 Pap Smear 1986 Cervical Cancer Screening 11/19/1995 HPV/Cotest 11/19/1995 Zoster Vaccines (1 of 2) 11/19/2015 Mammogram 03/09/2020 03/09/2018, 03/09/2018 COVID-19 Vaccine (4 - 2023-2 5 season) 2024 08/18/2020, 07/17/2020, 06/28/2020 Influenza Vaccine (#1) 2024 8, 03/12/2017 DTaP/Tdap/Td Vaccines (2 - T d or Tdap) 12/02/2025 12/03/2015 RSV Patients and Patients Aged 60 years or older (1 - 1-dose 75+ series) 2040 HIB Vaccines Aged Out No longer eligi ble based on patient's age to complete this topic HPV Vaccines Aged Out No longer eligi ble based on patient's age to complete this topic Hepatitis A Vaccines Aged Out No long er eligible based on patient's age to complete this topic IPV Vaccines Aged Out No longer eligi ble based on patient's age to complete this topic Meningococcal Vaccine Aged Out No viri kemal eligible based on patient's age to complete this topic Pneumococcal Vaccine: Pediatrics (0 to 5 Years) and At-Risk Patients (6 to 64 Years) Aged Out No longer eligible b ased on patient's age to complete this topic RSV under 20 months Aged Out No longe r eligible based on patient's age to complete this topic Rotavirus Vaccines Aged Out No longer eligible based on patient's age to complete this topic Procedures Procedure Name Priority Date/Time Associated Diagnosis Comments BI MAMMOGRAM SCREENING BILATERAL Routine 03/09/2018 2:44 PM EDT from Last 3 Months or Most Recently Relevant to Health Maintenance Results * DIGITAL BILATERAL SCREEN 1 (03/09/2018 2:44 PM EDT) Anatomical Region Laterality Modality Breast Bilateral Mammography 03/09/2018 2:44 PM EDT Narrative 04/14/2018 7:21 PM EST Refer to the Notes tab for result details [facility] Procedure: DIGITAL BILATERAL SCREEN 1 Procedure Note Provider, Ekta, - 08/29/2022 Refer to the Notes tab for result details [facility] Procedure: DIGITAL BILATERAL SCREEN 1 Historical Provider MD REEVES BI PROCEDURES Final R esult from Last 3 Months or Most Recently Relevant to Health Maintenance
--- OUTSIDE RECORDS SUMMARY | 2024-06-30 16:51 | XMS_ITS | Encounter Summary ---
Author Organization [facility] Address [address] [place] [address] [address] [place] [address] Care Team Providers Care Furnace Unloader Name Role Phone Grant Posadas MD Primary Care Prov ider Encounter Details Date Type Department Care Team (Latest Contact Info) Description 05/05/[address] [facility] CONVERSIONS Dental, Provider, DDS Social History Tobacco Use Types Packs/Day Years Used Date Smoking Tobacco: Never Assessed Comments Unknown Sex and Gender Information Value Date Recorded Sex Assigned at Female 04/06/2022 10:14 AM EDT Legal Sex Female 10:14 AM EDT Gender Identity Female 04/06/2022 10:14 AM EDT Sexual Orientation Don't know 04/06/2022 10 :14 AM EDT documented as of this encounter Plan of Treatment Not on file documented as of this encounter Visit Diagnoses Not on filedocumented in this encounter Care Teams Furnace Unloader Relationship Specialty Start Date End Date Grant Posadas MD [address] [place] [address] PCP - General Internal Medicine 10/31/19 04/07/23 documented as of this encounter
--- OUTSIDE RECORDS SUMMARY | 2024-06-30 16:51 | XMS_ITS | Encounter Summary ---
Author Organization [facility] Address [address] [facility] 7t [place] [address] Care Team Providers Care Airplane Patrol Pilot Name Role Phone Grant Posadas MD Primary Care Prov ider Encounter Details Date Type Department Care Team (Latest Contact Info) Description 02/03/2019 Abstract [facility] CONVERSIONS Dental, Provider, DDS Social History [...] on filedocumented in this encounter Care Teams Airplane Patrol Pilot Relationship Specialty Start Date End Date Grant Posadas MD [address] [place] [address] PCP - General Internal Medicine 10/31/19 04/07/23 documented as of this encounter
== END 2024-06-30 19:03 | disposition left against medical advice (07) ==
PROVIDERS: Emergency Provider Emergency Medicine; PCP Internal Medicine
DX: Z53.21 Procedure and treatment not carried out due to patient leaving prior to being seen by health care provider (principal); R10.9 Unspecified abdominal pain

== ENCOUNTER 2024-07-18 09:59 | Outpatient (REF) | payer OTHER, SELFPAY ==
--- OUTSIDE RECORDS SUMMARY | 2024-07-18 11:08 | XMS_ITS | Clinical Summary ---
Author Organization [facility] ity Address [address] [place] [address] Care Team Providers Care Jointer Machine Name Role Phone Unavailable Primary Care Provider Unavailabl e Social History Tobacco Use Types Packs/Day Years Used Date Smoking Tobacco: Never Assessed Comments Unknown Sex and Gender Information Value Date Recorded Sex Assigned at Not on file Legal Sex Female 8:29 AM EST Gender Identity Not on file Sexual Orientation Not on file Plan of Treatment Health Maintenance Due Date Last Done Comments Breast Cancer Screening 1965 DTaP,Tdap,and Td Vaccines (1 - Tdap) 1972 Hepatitis B Vaccines (1 of 3 - 19+ 3-dose series) 1984 Cervical Cancer Screening: P ap Smear 1986 Pneumococcal Vaccine: 50+ Ye ars (1 of 1 - PCV) 11/19/2015 Zoster Vaccines (1 of 2) 11/19/2015 Colorectal Cancer Screening: Colonoscopy 05/10/2022 Depression Screening 05/10/2022 HIV Screening 05/10/2022 Hepatitis C Screening 05/10/2022 Social Influencers of Health Screening 05/10/2022 COVID-19 Vaccine ( - 2023-2 5 season) 2024 Influenza Vaccine (#1) 2024 HIB Vaccines Aged Out No longer eligi [...] on patient's age to complete this topic MMR Vaccines Aged Out No longer eligi ble based on patient's age to complete this topic Meningococcal ACWY Vaccine Aged Out N o longer eligible based on patient's age to complete this topic Meningococcal B Vacine Aged Out No lo nger eligible based on patient's age to complete this topic Pneumococcal Vaccine: Pediat rics (0 to 5 Years) and At-Risk Patients (6 to 64 Years) Aged Out No longer eligible b ased on patient's age to complete this topic RSV Immunization Patients Un kimberly 20 months Aged Out No longer eligible b ased on patient's age to complete this topic Varicella Vaccines Aged Out No longer eligible based on patient's age to complete this topic
[2024-07-18 12:50] LABS: Thyroid Stimulating Hormone 2.03 uIU/mL (0.32-4.0)
== END 2024-07-18 10:00 | disposition home or self-care (01) ==
LOC: HO.LAB 09:59
PROVIDERS: PCP Internal Medicine; Visit Provider Internal Medicine
DX: E03.9 Hypothyroidism, unspecified (principal)
CPT/HCPCS: 36415; 84443

== ENCOUNTER 2024-08-02 08:14 | Outpatient (AMB) | payer OTHER, SELFPAY ==
--- OUTSIDE RECORDS SUMMARY | 2024-08-02 08:33 | XMS_ITS | Clinical Summary ---
Author Organization [facility] ity Address [address] [place] [address] Care Team Providers Care Home Restoration Service Cleaner Name Role Phone Unavailable Primary Care Provider [...] 1965 DTaP,Tdap,and Td Vaccines (1 - Tdap) 1984 Hepatitis B Vaccines (1 of 3 - [...]
--- OUTSIDE RECORDS SUMMARY | 2024-08-02 08:34 | XMS_ITS | Encounter Summary ---
Author Organization [facility] Address [address] [place] [address] 7t [place] [address] Care Team Providers Care Job Training Supervisor Name Role Phone Grant Posadas MD Primary Care Prov ider Encounter Details Date Type Department Care Team (Latest Contact Info) Description 02/03/2019 Abstract [facility] CONVERSIONS Dental, Provider, DDS Social History Tobacco [...] on filedocumented in this encounter Care Teams Job Training Supervisor Relationship Specialty Start Date End Date Grant Posadas MD [address] [place] [address] PCP - General Internal Medicine 10/31/19 04/07/23 documented as of this encounter
--- OUTSIDE RECORDS SUMMARY | 2024-08-02 08:34 | XMS_ITS | Encounter Summary ---
Author Organization [facility] Address [address] [place] [address] [address]t [place] [address] Care Team Providers Care Aircraft Engine Specialist Name Role Phone Grant Posadas MD Primary Care Prov ider Encounter Details Date Type Department Care Team (Latest Contact Info) Description 05/05/2021 Abstract [facility] CONVERSIONS Dental, Provider, DDS Social History Tobacco [...] on filedocumented in this encounter Care Teams Aircraft Engine Specialist Relationship Specialty Start Date End Date Grant Posadas MD [address] [place] [address] PCP - General Internal Medicine 10/31/19 04/07/23 documented as of this encounter
--- OUTSIDE RECORDS SUMMARY | 2024-08-02 08:34 | XMS_ITS | Clinical Summary ---
Author Organization [employer] Address [address] [place] [address] [address] [place] [address] Care Team Providers Care Detective Precinct Name Role Phone Unavailable Primary Care Provider [...] 1986 Cervical Cancer Screening 11/19/1995 HPV/Cotest 11/19/1995 Pneumococcal Vaccine: 50+ Years (1 of 1 - PCV) 11/19/2015 Zoster Vaccines (1 of 2) 11/19/2015 Mammogram 03/09/2020 03/09/2018, 03/09/2018 COVID-19 Vaccine (2023-2 5 season) 2024 08/18/2020, 07/17/2020, 06/28/2020 Influenza [...] 5 Years) and At-Risk Patients (6 to 49) Years) Aged Out No longer eligible b [...] DIGITAL BILATERAL SCREEN 1 Procedure Note Provider, Historical, - 08/29/2022 Refer to the Notes tab for result details Legacy Procedure: DIGITAL BILATERAL SCREEN 1 us Historical Provider MD REEVES BI PROCEDURES Final R esult from Last 3 Months or Most Recently Relevant to Health Maintenance
--- NOTE | 2024-08-02 10:41 | A.OFFVIS_ITS ---
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 COMMENTS Technical Internship Required: Yes Technical Internship Services: Technical Internship Present Information Interpreted: clinical only Allergies naproxen [From NAPROSYN] Allergy (Mild, Verified 08/02/24 10:43) SWELLING, tongue swelling Medication List - Last Reconciled 08/02/24 by James Dickerson MD albuterol sulfate 90 mcg/actuation 1 inh inhalation QID PRN 1 week bisacodyl (Dulcolax (bisacodyl)) 10 mg (2 x 5 mg) PO BEDTIME levothyroxine 112 mcg PO DAILY 90 days multivitamin 1 tab PO DAILY HPI HPI 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 WEAVER-SEE COMMENTS: Details: Start time: 10.30am, End time: 11.30am I spent 55 minutes speaking with the patient on the phone plus an additional 5 minutes reviewing and updating records for a total of 60 minutes HPI Comments Details: Previous weight loss efforts: exercise, Wegovy up to 1mg (3 months: lost 10lbs which she regained back) Wakes up: 5am, Sleeps: 12am, naps in the afternoon Breakfast: 7am (2 eggs, sausage) Lunch: skips Dinner: 7pm (chicken, fish, rice, avocado) Snacks: yogurt and fruits before dinner, yogurt after dinner Exercise: Has home elliptical Fluids: Coffee: 1 cup/day with sugar, tea: 3/wk (gavin), soda: none, juice: none, ETOH: 2-3 per year [facility] Medical History (Updated 08/02/24 @ 10:49 by James Dickerson MD) GERD (gastroesophageal reflux disease) Class 2 obesity with body mass index (BMI) of 37.0 to 37.9 in adult Physical exam Obesity due to excess calories Colon polyps Sleep apnea Vitamin D deficiency Postablative hypothyroidism Microscopic hematuria Low back pain Hypothyroidism Right lower quadrant abdominal pain Surgical History S/P cataract extraction Hx of colonoscopy History of thyroidectomy History of hand surgery Hx of thumb surgery Family History Father CHF (congestive heart failure) Pacemaker Mother CAD (coronary artery disease) Palpitations Maternal Aunt Thyroid disease Liver cancer Sister No problems noted. Son No problems noted. 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 Current occupational exposures/hazards: No Cognitive needs: No Hearing needs: No Vision needs: Yes Female Reproductive History Menstrual Age of Menarche: 12 Physical Exam Vital Signs: BMI result Body Mass Index 37.2 Telehealth Telehealth Telehealth Platform: Telephone Location of provider rendering services: practice address Location of patient: address on file Patient Identification confirmed using: Name, : Yes Telehealth method: voice only Patient verbally consented to treatment: Yes Patient verbally consented to billing insurance company: Yes Patient informed of any privacy concerns related to visit: Yes Minutes spent on Phone/Video with Pt.: 60 Assessment & Plan Assessment & Plan (1) Obesity due to excess calories: Code(s): E66.09 - Other obesity due to excess calories Category: Medical Qualifiers: Body mass index: BMI 30.0-30.9 Obesity classification: adult class 1 (BMI 30 - 34.9) Serious obesity comorbidity presence: without serious comorbidity Qualified Code(s): E66.09 - Other obesity due to excess calories; Z68.30 - Body mass index [BMI]30.0-30.9, adult Plan: 1. In my opinion proceeding with the lap sleeve gastrectomy would be the best option. If diaphragmatic or ventral hernias are present at time of surgery, these will be repaired laparoscopically as well. I emphasized the importance of close follow-up, adherence to instructions and good communication. The surgery does not replace the need to change your lifestlyle which is the cause of the obesity problem. The surgery provides the motivation to try again to change your lifestyle, it reduces the appetite and make the transition to a better lifestyle easier and doubles the amount of weight you would lose compared to doing the lifestyle change without the surgery. You will need to be on a liquid diet with protein shakes for 2 weeks before surgery to maximize weight loss and boost your nutritional status to recover better from surgery and also for the first two weeks after surgery to let the stomach heal before we introduce other foods. After the first 2 weeks we will introduce protein bars and soft foods like scrambled eggs, cottage cheese and yogurt and after the 6th week will introduce meat, fish and cooked vegetables in small amounts. Over time you should be able to eat everything in small amounts. Side effects like nausea, vomiting, heartburn or abdominal pain are not common in the practice unless you are not following in the practice. This operation requires lifetime commitment to following in our practice and communication with me. You will much less weight and experience side effects if you don?t communicate or not following in the practice. Complications are rare and in our practice is about 1/10 of the national average. However, you can develop bleeding that may require transfusion (hasn?t happened for year in the practice), you may from complications (we did not have any deaths in the practice) and infections. Infections are usually a result of breakdown in communication or not understanding or following directions correctly. They are difficult to treat, they can happen during the first 6 weeks, they may require to be in the hospital for weeks or even months, not being able to eat by mouth and you may have drains and surgeries to try and correct the issue. Other risks and complications include possible conversion to an open procedure, leaks, small bowel obstruction, blood clots, cardiac, or pulmonary complications, as prison complications such as ulcers, insufficient weight loss and vitamin deficiencies. We agreed that she will speak first with Dr. Fiore. 2. Nutritional counseling. Start with 2 CELEBRATE REBUILD protein (buy at hospital's gift shop) shakes (HALF scoop EACH in 8oz low fat unsweetened almond milk each) at 6am-8am and 9am-11am, 2 protein bars (CELEBRATE protein bars, buy at [facility] [employer] [facility]) at 12pm-2pm and 3pm-5pm, dinner at 7pm (8 forks of protein and 8 forks of salad/vegetables) AND one more protein bar after dinner at 9pm-11pm So you do 2 protein shakes, 2.5 protein bars and one meal per day. Meal to include lean meat (beef, fish, pork, turkey, chicken), or eritrean yogurt, or egg whites, or beans with a salad with olive oil and fruits (berries, pears, apples, kiwi). Avoid salt, breads, potatoes, rice, pasta, desserts. 3. Each shake would be drunk slowly, like coffee in a period of 2 hours. 4. Cut each bar in 4 pieces and eat each piece in 30min to make each bar last 2 hours. 5. I emphasized the importance of measuring accurately the food portion and measure it when serving the food in plate 6. The meal portions include 10 full-size forks of meat and 10 full-size forks of salad. You always eat the meat portion but you can replace up to 5 forks for salad/vegetables with rice, potatoes or pasta, or a fruit if you like. The less you do it the better weight loss will be. 7. One full-size fork is what it can be scooped on the fork without falling aside and not what can be bit with the fork. Use regular forks like those you fi nd in a typical restaurant. 8. Please buy the body composition scale we discussed and send me weight measurements as soon as possible and then once a week. Always include your diet and exercise plan. 9. Start Elliptical with an incline of 2.0 and resistance of 4.0. Increase resistance by 1 every 3 min to a max resistance of 10.0, and repeat cycles for 300 calories. 12. Goal is to lose at least 1.5-2lbs per week 13. Goal to lose 10% of your weight before surgery, which is about 20lbs. Ultimate weight goal: 190lbs before surgery 14. Please follow the diet plan exactly without any change. If you don't like something about the plan or you feel hungry you need to communicate with me so I can help you revise the plan. You should not change the plan yourself 15. We discussed the potential side-effects of the Phentermine such as irritability, dry mouth, difficulty sleeping, dizziness, numbness in feet and high blood pressure. I asked her to get a blood pressure monitor and measure the blood pressure daily in the morning and evening. She needs to send the blood pressure readings daily and to call the office for blood pressure over 140/80 and she understands that.
[2024-08-02 11:04] VITALS: BMI 37.2
== END 2024-08-02 12:57 | disposition home or self-care (01) ==
LOC: HO.HBS 08:14
PROVIDERS: PCP Internal Medicine; Visit Provider Surgery
DX: E66.09 Other obesity due to excess calories (principal); Z68.30 Body mass index [BMI] 30.0-30.9, adult
CPT/HCPCS: 99205

== ENCOUNTER → 2024-08-02 08:14 | Outpatient (BNVA) | payer OTHER, SELFPAY | PROVIDERS: PCP Internal Medicine; Visit Provider Surgery ==

== ENCOUNTER 2024-10-01 22:29 | Emergency (ER) | payer OTHER, SELFPAY ==
--- NOTE | ~2024-10-01 | XR_ITS ---
CLINICAL HISTORY: fall 4 view right wrist Comparison: None Findings: Bones intact. No dislocations. No radiopaque foreign body. IMPRESSION: 1. No acute fracture or dislocation injury identified at the right wrist. This document has been electronically signed by: Edilson Caldera MD on 10/02/2024 00:37:12
--- NOTE | ~2024-10-01 | XR_ITS ---
CLINICAL HISTORY: fall 3 view right elbow Comparison: None Findings: Minimally displaced fracture present at the right radial head/neck with involvement of the articular surface. Displacement of the anterior and posterior fat pads present on the lateral image, consistent with a right elbow effusion. No radiopaque foreign body. IMPRESSION: 1. Minimally displaced fracture present at the right radial head/neck with involvement of the articular surface. 2. Right elbow effusion. This document has been electronically signed by: Edilson Caldera MD on 10/02/2024 00:40:40
--- NOTE | ~2024-10-01 | XR_ITS ---
CLINICAL HISTORY: fall 3 view right shoulder Comparison: None Findings: Bones intact. No dislocations. The right humeral head is appropriately positioned with respect to the right glenoid. The visualized portion of the right lung appears clear. No radiopaque foreign body. IMPRESSION: 1. No acute fracture or dislocation injury identified at the right shoulder. This document has been electronically signed by: Edilson Caldera MD on 10/02/2024 02:26:34
[2024-10-01 22:31] VITALS: BP 131/65; PULSE 79; RESP 20; TEMP 36.8; O2SAT 100; BMI 37.6
[2024-10-01 22:52] VITALS: BP 119/61; PULSE 88; RESP 22; TEMP 37.1; O2SAT 99
--- NOTE | 2024-10-01 22:59 | ED_ITS ---
HPI - Fall General Chief Complaint: Fall Stated Complaint: Had a fall, miya arm pain, shoulder pain Time Seen by Provider: 10/01/24 22:58 Source: patient Mode of arrival: ambulatory Limitations: no limitations History of Present Illness ED Provider: HPI Narrative: Patient apparently stepped in a pothole lost balance and fell just prior to arrival hitting her right elbow to the ground complaining of pain in the right elbow and right wrist no head injury no loss of consciousness no other injuries Related Data Home Medications ?Medication ?Instructions ?Recorded ?Confirmed multivitamin 1 tab PO DAILY 08/08/20 08/02/24 Previous Rx's ?Medication ?Instructions ?Recorded albuterol sulfate 90 mcg/actuation 1 inh inhalation QID PRN shortness 05/08/23 aerosol inhaler of breath or wheezing 1 week #8.5 grams levothyroxine 112 mcg tablet 112 mcg PO DAILY 90 days #90 tabs 04/16/24 bisacodyl 5 mg tablet,delayed 10 mg (2 x 5 mg) PO BEDTIME #60 06/26/24 release (Dulcolax (bisacodyl)) tabs hydrocodone 5 mg-acetaminophen 325 1 tab PO Q6H PRN pain #20 tabs 10/02/24 mg tablet Allergies Allergy/AdvReac Type Severity Reaction Status Date / Time naproxen [From NAPROSYN] Allergy Mild SWELLING, Verified 10/02/24 03:47 tongue swelling Review of Systems Review of Systems: Yes all other systems are reviewed and are negative PMFSH Past Medical History Medical History GERD (gastroesophageal reflux disease) Class 2 obesity with body mass index (BMI) of 37.0 to 37.9 in adult Physical exam Obesity due to excess calories Colon polyps Sleep apnea Vitamin D deficiency Postablative hypothyroidism Microscopic hematuria Low back pain Hypothyroidism Right lower quadrant abdominal pain Surgical History S/P cataract extraction Hx of colonoscopy History of thyroidectomy History of hand surgery Hx of thumb surgery Family History Family History Father CHF (congestive heart failure) Pacemaker Mother CAD (coronary artery disease) Palpitations Maternal Aunt Thyroid disease Liver cancer Sister No problems noted. Son No problems noted. 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 Oriented X3. No acute distress. Eyes: No pallor or icterus ENT: Pharynx normal. Oral Mucosa moist Neck: Normal inspection. Neck supple. CVS: Normal heart rate and rhythm. Pulses normal. Respiratory: No respiratory distress. Equal air entry bilateral, no w heezing/rales/rhonchi Abdomen: Soft and nontender. Bowel sounds are present, no mass palpable, no CVA tenderness Skin: Skin warm and dry. Normal skin color. Normal skin turgor. Extremities: No lower extremity edema. No calf tenderness tenderness right elbow with slight swelling and right wrist without any significant swelling or deformity , diffuse tenderness right shoulder, patient ambulatory Neuro: Oriented X 3. No motor deficit. No sensory deficit.No cerebellar signs , cranial nerves II-XII intact Medications Administered Discontinued Medications Generic Name Dose Route Start Last Admin Trade Name Freq PRN Reason Stop Dose Admin Hydrocodone Bitart/Acetaminophen 1 tab 10/01/24 23:48 10/01/24 23:53 Hydrocodone Bit/Acetam 5/325 Tablet PO 10/01/24 23:49 1 tab ONCE ONE Administration Procedures Orthopedic Splinting/Casting Injury #1: Side: right Upper Extremity Injury Location: elbow Upper Extremity Immobilizer: sling/shoulder immobilizer and posterior splint Medical Decision Making Medical Decision Making MDM Narrative: Patient is status post mechanical fall with radial head fracture posterior splint was applied advised to follow up with Orthopedics Independent Interpretation I performed an independent interpretation of an: Plain X-Ray Radiology Impression Discussion of test interpretation with radiology: I have reviewed the radiologist's reading. Radiologist Impression: IMPRESSION: 1. Minimally displaced fracture present at the right radial head/neck with involvement of the articular surface. 2. Right elbow effusion. This document has been electronically signed by: Edilson Caldera MD on 10/02/2024 00:40:40 Discharge Plan Discharge Clinical Impression: Fracture of head of right radius Patient Disposition: Home, Self-Care Instructions: Elbow Fracture (ED) Additional Instructions: Wear the splint for support Keep the right hand elevated Pain medication as prescribed Follow up with Dr. Ramirez orthopedics in next 2 3 days Prescriptions: New hydrocodone-acetaminophen 5-325 mg tablet 1 tab PO Q6H PRN (Reason: pain) Qty: 20 0RF Rx Instructions: Partial Fill upon patient request. No Action levothyroxine 112 mcg tablet 112 mcg PO DAILY 90 Days Qty: 90 1RF albuterol sulfate 90 mcg/actuation HFA aerosol inhaler 1 inh inhalation QID PRN (Reason: shortness of breath or wheezing) 7 Days Qty: 8.5 0RF multivitamin Tablet 1 tab PO DAILY bisacodyl [Dulcolax (bisacodyl)] 5 mg tablet,delayed release (DR/EC) 10 mg PO BEDTIME Qty: 60 4RF Referrals: Laron Ramirez MD [Physician] - 5 days Interventions: ED Discharge Assessment Last Done: 10/02/24 02:27 Discharge Date/Time: 10/02/24 02:28 Print Language: Setswana
[2024-10-01] MEDS: HYDROcodone Bit/Acetam 5/325 TABLET 1 TAB PO (23:53)
[2024-10-02 02:10] VITALS: BP 113/44; PULSE 78; O2SAT 96
[2024-10-02 02:27] VITALS: BP 113/44; PULSE 78; RESP 16; TEMP 36.4; O2SAT 96
== END 2024-10-02 02:28 | disposition home or self-care (01) ==
PROVIDERS: Emergency Provider Internal Medicine; PCP Internal Medicine
DX: S52.121A Displaced fracture of head of right radius, initial encounter for closed fracture (principal); W19.XXXA Unspecified fall, initial encounter; Y93.89 Activity, other specified; Y92.89 Other specified places as the place of occurrence of the external cause; Y99.9 Unspecified external cause status
CPT/HCPCS: 73030; 73080; 73110; 99284

== ENCOUNTER → 2024-10-01 23:15 | Outpatient (BNV) | payer OTHER, SELFPAY | PROVIDERS: Emergency Provider Internal Medicine; PCP Internal Medicine; Visit Provider Radiology Diagnostic Radiology | DX: M25.531 Pain in right wrist (principal); M25.421 Effusion, right elbow; W19.XXXA Unspecified fall, initial encounter | CPT/HCPCS: 73080; 73110 ==

== ENCOUNTER → 2024-10-02 01:00 | Outpatient (BNV) | payer OTHER, SELFPAY | PROVIDERS: Emergency Provider Internal Medicine; PCP Internal Medicine; Visit Provider Radiology Diagnostic Radiology | DX: R55 Syncope and collapse (principal); W19.XXXA Unspecified fall, initial encounter | CPT/HCPCS: 73030; 73110 ==

== ENCOUNTER 2024-10-02 03:26 | Emergency (ER) | payer OTHER, SELFPAY ==
--- NOTE | 2024-10-02 | ECG_ITS ---
Test Reason : PRESYNCOPAL Blood Pressure : */* mmHG Vent. Rate : 76 BPM Atrial Rate : 76 BPM P-R Int : 152 ms QRS Dur : 86 ms QT Int : 372 ms P-R-T Axes : 41 12 20 degrees QTcB Int : 418 ms Normal sinus rhythm Normal ECG When compared with ECG of 02-Oct-2021 20:38, No significant change was found Referred By: Generic ED Physician Electronically Signed By: Omer Robb
--- NOTE | ~2024-10-02 | XR_ITS ---
CLINICAL HISTORY: fall 3 view left wrist Comparison: None Findings: No acute fracture or dislocation is identified. Soft tissue structures appear intact. IMPRESSION: 1. No acute osseous abnormality is identified. This document has been electronically signed by: Asad Naranjo on 10/02/2024 06:15:56
[2024-10-02 03:36] VITALS: BP 128/68; PULSE 87; O2SAT 100
[2024-10-02 03:45] VITALS: BP 110/57; PULSE 85; RESP 20; TEMP 36.7; O2SAT 96; BMI 37.6
--- OUTSIDE RECORDS SUMMARY | 2024-10-02 04:03 | XMS_ITS | Encounter Summary ---
Author Organization [employer] [facility] Address [address] [place] [address] [address] [place] [address] Care Team Providers Care Glove Parts Cutter Name Role Phone Grant Posadas MD Primary Care Prov ider Encounter Details Date Type Department Care Team (Latest Contact Info) Description 02/03/2019 Abstract [facility] CONVERSIONS Dental, Provider, DDS Social History [...] on filedocumented in this encounter Care Teams Glove Parts Cutter Relationship Specialty Start Date End Date Grant Posadas MD [address] [place] [address] PCP - General Internal Medicine 10/31/19 04/07/23 documented as of this encounter
--- OUTSIDE RECORDS SUMMARY | 2024-10-02 04:03 | XMS_ITS | Clinical Summary ---
Author Organization [employer] Address [address] [place] [address] [address]t [place] [address] Care Team Providers Care Wood Floor Layer Name Role Phone Unavailable Primary Care Provider [...]
--- OUTSIDE RECORDS SUMMARY | 2024-10-02 04:03 | XMS_ITS | Encounter Summary ---
Author Organization [employer] [facility] Address [address] [place] [address] 7t [place] [address] Care Team Providers Care Furniture Assembly Supervisor Name Role Phone Grant Posadas MD Primary Care Prov ider Encounter Details Date Type Department Care Team (Latest Contact Info) Description 05/05/2021 Abstract [facility] CONVERSIONS Dental, Provider, DDS Social History [...] on filedocumented in this encounter Care Teams Furniture Assembly Supervisor Relationship Specialty Start Date End Date Grant Posadas MD [address] [place] [address] PCP - General Internal Medicine 10/31/19 04/07/23 documented as of this encounter
--- NOTE | 2024-10-02 05:15 | ED.GENADULT ---
HPI - General Adult General Chief complaint: General Medical Stated complaint: Hx of Afib just left ER from Fall Time Seen by Provider: 10/02/24 05:14 Source: patient and family Mode of arrival: EMS Limitations: no limitations History of Present Illness ED Provider: HPI narrative: Apparently patient was seen earlier for right radial head fracture went home was sitting having pain in the left hand now and diaphoretic passed out with the diaphoresis dizziness nausea and incontinence of urine no seizure activity does have history of lone atrial fibrillation at age of 20 no palpitation feeling at this time patient complaining of pain in the left wrist x-ray was not done during last visit Related Data Home Medications ?Medication ?Instructions ?Recorded ?Confirmed multivitamin 1 tab PO DAILY 08/08/20 08/02/24 Previous Rx's ?Medication ?Instructions ?Recorded albuterol sulfate 90 mcg/actuation 1 inh inhalation QID PRN shortness 05/08/23 aerosol inhaler of breath or wheezing 1 week #8.5 grams levothyroxine 112 mcg tablet 112 mcg PO DAILY 90 days #90 tabs 04/16/24 bisacodyl 5 mg tablet,delayed 10 mg (2 x 5 mg) PO BEDTIME #60 06/26/24 release (Dulcolax (bisacodyl)) tabs hydrocodone 5 mg-acetaminophen 325 1 tab PO Q6H PRN pain #20 tabs 10/02/24 mg tablet Allergies Allergy/AdvReac Type Severity Reaction Status Date / Time naproxen [From NAPROSYN] Allergy Mild SWELLING, Verified 10/02/24 03:47 tongue swelling Review of Systems Review of Systems: Yes all other systems are reviewed and are negative [facility] Past Medical History Medical History GERD (gastroesophageal reflux disease) Class 2 obesity with body mass index (BMI) of 37.0 to 37.9 in adult Physical exam Obesity due to excess calories Colon polyps Sleep apnea Vitamin D deficiency Postablative hypothyroidism Microscopic hematuria Low back pain Hypothyroidism Right lower quadrant abdominal pain Surgical History S/P cataract extraction Hx of colonoscopy History of thyroidectomy History of hand surgery Hx of thumb surgery Family History Family History Father CHF (congestive heart failure) Pacemaker Mother CAD (coronary artery disease) Palpitations Maternal Aunt Thyroid disease Liver cancer Sister No problems noted. Son No problems noted. 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 Oriented X3. No acute distress. Eyes: PERRLA, No Nystagmus ENT: Pharynx normal. Oral Mucosa moist Neck: Normal inspection. Neck supple. CVS: Normal heart rate and rhythm. Pulses normal. Respiratory: No respiratory distress. Equal air entry bilateral, no wheezing/rales/rhonchi Abdomen: Soft and nontender. Bowel sounds are present, no mass palpable, no CVA tenderness Skin: Skin warm and dry. Normal skin color. Normal skin turgor. Extremities: No lower extremity edema. No calf tenderness diffuse tenderness base of left thumb, right arm in splint Neuro: Oriented X 3. No motor deficit. No sensory deficit.No cerebellar signs , cranial nerves II-XII intact Medications Administered Discontinued Medications Generic Name Dose Route Start Last Admin Trade Name Freq PRN Reason Stop Dose Admin Acetaminophen 650 mg 10/02/24 06:52 10/02/24 06:56 Acetaminophen 325 Mg Tablet PO 10/02/24 06:53 650 mg ONCE ONE Administration Medical Decision Making Medical Decision Making MDM Narrative: Patient with near-syncope episode likely vasovagal x-ray of the left wrist negative for fracture wrist splint was applied patient advised to follow up with PCP EKG normal sinus rhythm without any ischemic changes no AFib noticed Independent Interpretation I performed an independent interpretation of an: EKG and Plain X-Ray Interpretation: NAD Normal sinus rhythm heart rate 76 beats per minute normal intervals normal axis no acute STT wave changes no acute ischemia Radiology Impression Discussion of test interpretation with radiology: I have reviewed the radiologist's reading. Discharge Plan Discharge Clinical Impression: Vasovagal syncope, Contusion of left wrist Patient Disposition: Home, Self-Care Instructions: Syncope (ED) Additional Instructions: Your x-ray of the left wrist is negative for fracture Your likely had vasovagal episode making your passing out Drink plenty of fluid continue pain medication Prescriptions: No Action levothyroxine 112 mcg tablet 112 mcg PO DAILY 90 Days Qty: 90 1RF hydrocodone-acetaminophen 5-325 mg tablet 1 tab PO Q6H PRN (Reason: pain) Qty: 20 0RF Rx Instructions: Partial Fill upon patient request. albuterol sulfate 90 mcg/actuation HFA aerosol inhaler 1 inh inhalation QID PRN (Reason: shortness of breath or wheezing) 7 Days Qty: 8.5 0RF multivitamin Tablet 1 tab PO DAILY bisacodyl [Dulcolax (bisacodyl)] 5 mg tablet,delayed release (DR/EC) 10 mg PO BEDTIME Qty: 60 4RF Interventions: ED Discharge Assessment Last Done: 10/02/24 07:18 Discharge Date/Time: 10/02/24 07:19 Print Language: Bangladeshi
--- NOTE | 2024-10-02 05:45 | PC.NURSE ---
Pt seen here earlier this night, pt had a fall, known R elbow fx, splint remains in place, able to move fingers, no swelling noted to be disturbing CMS. Pt coming back d/t a syncopal episode at home. She was eating when she got diaphoretic, pale, had an incon episode of urine. EMS was called. Pt has been A/Ox4 since arrival. Offers complaints of pain in her left FA, stating it did not get an Xray when she was here the first time, slight swelling noted in forearm. Ice pack given. at bedside, xray order placed.
[2024-10-02] MEDS: Acetaminophen 325 MG TABLET 650 MG PO (06:56)
[2024-10-02 07:18] VITALS: BP 110/57; PULSE 85; RESP 20; TEMP 36.7; O2SAT 96
== END 2024-10-02 07:19 | disposition home or self-care (01) ==
PROVIDERS: Emergency Provider Internal Medicine; PCP Internal Medicine
DX: S60.212A Contusion of left wrist, initial encounter (principal); M25.532 Pain in left wrist; R11.0 Nausea; R32 Unspecified urinary incontinence; R55 Syncope and collapse; X58.XXXA Exposure to other specified factors, initial encounter; Y93.9 Activity, unspecified; Y92.9 Unspecified place or not applicable; Y99.8 Other external cause status; Z79.899 Other long term (current) drug therapy
CPT/HCPCS: 73110; 93005; 99284; 99285

== ENCOUNTER → 2024-10-02 04:00 | Outpatient (BNV) | payer OTHER, SELFPAY | PROVIDERS: Emergency Provider Internal Medicine; PCP Internal Medicine; Visit Provider Internal Medicine Cardiovascular Disease | DX: R55 Syncope and collapse (principal) | CPT/HCPCS: 93010 ==

== ENCOUNTER 2024-10-10 09:33 | Outpatient (REF) | payer OTHER, SELFPAY ==
--- NOTE | ~2024-10-10 | XR_ITS ---
CLINICAL HISTORY: M25.521 - Pain in right elbow 3 views right elbow Comparison: 10/01/2024 Findings: No dislocations No joint effusion No significant arthritic change No radiopaque foreign body Impression: Mild nondisplaced compression fracture of the articular surface of the radial head and neck involving 40% of the articular surface area. The appearance is unchanged from the previous exam This document has been electronically signed by: Keith Beckford MD on 10/10/2024 14:38:59
--- OUTSIDE RECORDS SUMMARY | 2024-10-10 10:31 | XMS_ITS | Clinical Summary ---
Author Organization [employer] Address [address] [facility] [address]t [place] [address] Care Team Providers Care Production Director Name Role Phone Unavailable Primary Care Provider [...]
--- OUTSIDE RECORDS SUMMARY | 2024-10-10 10:31 | XMS_ITS | Clinical Summary ---
Author Organization [employer] [facility] it[facility] Address [address] [place] [address] Care Team Providers Care Clerical Support Name Role Phone Unavailable Primary Care Provider [...] Influencers of Health Screening 05/10/2022 COVID-19 Vaccine (1 - 2023-2 5 season) 2024 Influenza Vaccine (Season Ended) 2025 HIB Vaccines Aged Out No longer eligi [...] age to complete this topic Meningococcal B Vaccine Aged Out No l onger eligible based on patient's age to complete [...]
--- OUTSIDE RECORDS SUMMARY | 2024-10-10 10:31 | XMS_ITS | Encounter Summary ---
Author Organization [employer] Address [address] [facility] [address]t [place] [address] Care Team Providers Care Hot Water Heater Installer Name Role Phone Grant Posadas MD Primary Care Prov ider Encounter Details Date Type Department Care Team (Latest Contact Info) Description 05/05/2021 Abstract [facility] CONVERSIONS Dental, Provider, DDS Social History [...] on filedocumented in this encounter Care Teams Hot Water Heater Installer Relationship Specialty Start Date End Date Grant Posadas MD [address] [place] [address] PCP - General Internal Medicine 10/31/19 04/07/23 documented as of this encounter
--- OUTSIDE RECORDS SUMMARY | 2024-10-10 10:31 | XMS_ITS | Encounter Summary ---
Author Organization [employer] Address [address] [facility] [address]t [place] [address] Care Team Providers Care Media Reporter Name Role Phone Grant Posdaas MD Primary Care Prov ider Encounter Details Date Type Department Care Team (Latest Contact Info) Description 02/03/2019 Abstract [facility] CONVERSIONS Dental, Provider, DDS Social History [...] on filedocumented in this encounter Care Teams Media Reporter Relationship Specialty Start Date End Date Grant Posadas MD [address] [place] [address] PCP - General Internal Medicine 10/31/19 04/07/23 documented as of this encounter
== END 2024-10-10 09:34 | disposition home or self-care (01) ==
LOC: HO.HOSX 09:33
DX: M25.521 Pain in right elbow (principal); S52.121A Displaced fracture of head of right radius, initial encounter for closed fracture
CPT/HCPCS: 73080; 99202

== ENCOUNTER 2024-10-10 13:41 | Outpatient (AMB) | payer OTHER, SELFPAY ==
--- NOTE | 2024-10-10 14:07 | MHC.OFFVIS ---
Vital Signs 10/10/24 14:09 Height 5 ft 3 in Weight 213 lb BMI 37.7 Handedness Right Intake Visit Reasons: FC-Right Radial Head Fracture 10/01/24 Intake Note: Mela is a 58 year old right hand dominant female who presents today with her neice for a fracture care appointment for her right wrist injury. Patient reports that on 10/01/24 she stepped in a pothole and fell on her right side injuring the right elbow, she then tried to use the left hand to get up and says she heard a crack. She was seen at [facility] ED after the injury where she was found to have a radial head fracture. She was placed in a posterior splint and given a sling. Patient reports pain in her bilateral wrist, mainly the right. She states she is unable to lift her right thumb and when he attempts to it sends extreme pain up the radial aspect up the wrist. Reports numbness and tingling running through the right forearm into the right digits. She takes medication prescribed from the ED for the pain and reports mild relief. Unable to take NSAIDs due to swelling of tongue. Accompanied by: Nephew or Niece Allergies NSAIDS (Non-Steroidal Anti-Inflamma Allergy (Severe, Verified 10/10/24 14:10) swelling of tongue naproxen [From NAPROSYN] Allergy (Mild, Verified 10/10/24 14:10) SWELLING, tongue swelling HPI HPI FC-Right Radial Head Fracture 10/01/24: Details: Mela is a 58 year old right hand dominant female who presents today with her negermain for a fracture care appointment for her right wrist injury. Patient reports that on 10/01/24 she stepped in a pothole and fell on her right side injuring the right elbow, she then tried to use the left hand to get up and says she heard a crack. She was seen at [facility] ED after the injury where she was found to have a radial head fracture. She was placed in a posterior splint and given a sling. Patient reports pain in her bilateral wrist, mainly the right. She states she is unable to lift her right thumb and when he attempts to it sends extreme pain up the radial aspect up the wrist. Reports numbness and tingling running through the right forearm into the right digits. She takes medication prescribed from the ED for the pain and reports mild relief. Unable to take NSAIDs due to swelling of tongue. [facility] Medical History GERD (gastroesophageal reflux disease) Class 2 obesity with body mass index (BMI) of 37.0 to 37.9 in adult Physical exam Obesity due to excess calories Colon polyps Sleep apnea Vitamin D deficiency Postablative hypothyroidism Microscopic hematuria Low back pain Hypothyroidism Right lower quadrant abdominal pain Surgical History S/P cataract extraction Hx of colonoscopy History of thyroidectomy History of hand surgery Hx of thumb surgery Family History Father CHF (congestive heart failure) Pacemaker Mother CAD (coronary artery disease) Palpitations Maternal Aunt Thyroid disease Liver cancer Sister No problems noted. Son No problems noted. 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 Neuro: Normal sensation of the tips of all digits of the right hand at this time Vascular: Cap refill brisk Pain: Tenderness to palpation of the R radial head Significant discomfort with all ROM of the R wrist and elbow Tenderness to palpation of the R wrist diffusely ROM: Limited ROM of the R wrist and elbow due to pain Skin: No lacerations or abrasions. General: No ecchymosis, erythema, or evidence of infection. Psych: Appears grossly normal Affect normal Attitude cooperative Office Procedures AMB Fracture Care Details: R radial head fx Fracture Billing Code: Fracture Billing Code Results Reviewed Results Reviewed: X-rays obtained in the office today and independently reviewed by , Singh María PA-C, demonstrate nondisplaced R radial head fracture. Assessment & Plan Assessment & Plan (1) Fracture of head of right radius: Code(s): S52.121A - Displaced fracture of head of right radius, initial encounter for closed fracture Category: Medical Plan 1. R radial head fracture DOI10/01/24 Patient is educated about this injury Patient is educated about the typical recovery course At this time, patient is advised that she should only be wearing the sling for high-risk situations and for comfort, and should be coming out of it to work on gentle range of motion of the right wrist and elbow Patient is educated that she should not be pushing through pain to move the elbow yet Patient is amenable to this plan Follow-up in 2 weeks with repeat x-rays for reassessment, anticipate OT referral at that time, sooner with any acute concerns Orders: Orders XR elbow RT min 3V 10/10/24 M25.521 - Pain in right elbow Coding Level of Care Code New Pt Level 3 (42744) Diagnoses Fracture of head of right radius S52.121A CPT Codes Fracture Care - Fracture Billing Code: Fracture Billing Code ([id number])
[2024-10-10 14:09] VITALS: BMI 37.7
--- OUTSIDE RECORDS SUMMARY | 2024-10-10 14:58 | XMS_ITS | Clinical Summary ---
Author Organization [employer] Address [address] [facility] [address]t [place] [address] Care Team Providers Care Bar Porter Name Role Phone Unavailable Primary Care Provider [...]
--- OUTSIDE RECORDS SUMMARY | 2024-10-10 14:58 | XMS_ITS | Clinical Summary ---
Author Organization [employer] [facility] it[facility] Address [address] [place] [address] Care Team Providers Care Investigator Vice Name Role Phone Unavailable Primary Care Provider [...]
--- OUTSIDE RECORDS SUMMARY | 2024-10-10 14:58 | XMS_ITS | Encounter Summary ---
Author Organization [employer] Address [address] [facility] 7t [place] [address] Care Team Providers Care Thread Spinner Name Role Phone Grant Posadas MD Primary Care Prov ider Encounter Details Date Type Department Care Team (Latest Contact Info) Description 02/03/[address] [facility] CONVERSIONS Dental, Provider, DDS Social History [...] on filedocumented in this encounter Care Teams Thread Spinner Relationship Specialty Start Date End Date Grant Posadas MD [address] [place] [address] PCP - General Internal Medicine 10/31/19 04/07/23 documented as of this encounter
--- OUTSIDE RECORDS SUMMARY | 2024-10-10 14:58 | XMS_ITS | Encounter Summary ---
Author Organization [employer] Address [address] [facility] 7t [place] [address] Care Team Providers Care Wildlife Enforcement Major Name Role Phone Grant Posadas MD Primary Care Prov ider Encounter Details Date Type Department Care Team (Latest Contact Info) Description 05/05/2021 Abstract [facility] CONVERSIONS Dental, Provider, DDS Social [...] on filedocumented in this encounter Care Teams Wildlife Enforcement Major Relationship Specialty Start Date End Date Grant Posadas MD [address] [place] [address] PCP - General Internal Medicine 10/31/19 04/07/23 documented as of this encounter
== END 2024-10-10 14:57 | disposition home or self-care (01) ==
LOC: HO.HOS 13:41
PROVIDERS: PCP Internal Medicine
DX: S52.121A Displaced fracture of head of right radius, initial encounter for closed fracture (principal)
CPT/HCPCS: 99203

== ENCOUNTER → 2024-10-10 13:43 | Outpatient (BNV) | payer OTHER, SELFPAY | PROVIDERS: Visit Provider Radiology Diagnostic Radiology | DX: M25.521 Pain in right elbow (principal) | CPT/HCPCS: 73080 ==

== ENCOUNTER 2024-10-16 17:23 | Outpatient (AMB) | payer OTHER, SELFPAY ==
--- NOTE | 2024-10-16 17:29 | MHC.PC.OV ---
Vital Signs 10/16/24 17:30 Height 5 ft 3 in Weight 216 lb BMI 38.3 BP 132/80 Blood Pressure Location Lt brachial Position Sitting Intake Visit Reasons: annual exam Intake Note: Patient here for an annual physical exam Computer Security Manager Required: No Accompanied by: Self / Same As Patient Allergies NSAIDS (Non-Steroidal Anti-Inflamma Allergy (Severe, Verified 10/16/24 17:39) swelling of tongue naproxen [From NAPROSYN] Allergy (Mild, Verified 10/16/24 17:39) SWELLING, tongue swelling Medication List - Last Reconciled 10/16/24 by Corry Calhoun MD albuterol sulfate 90 mcg/actuation 1 inh inhalation QID PRN 1 week bisacodyl (Dulcolax (bisacodyl)) 10 mg (2 x 5 mg) PO BEDTIME hydrocodone-acetaminophen 5-325 mg 1 tab PO Q6H PRN levothyroxine 112 mcg PO DAILY 90 days multivitamin 1 tab PO DAILY prednisone 20 mg PO BID Tobacco use date assessed: 10/16/24 Dental Screening Dental Screen Date: 10/16/24 Did you have a dental visit in the last 12 months?: No Did you have a dental problem in the last 6 months where you did not have access to dental care?: No Was dental information given to patient?: Patient has dentist HPI HPI Comments History of Present Illness Details The patient is a 58 year old female presenting for her physical exam. She reports an injury sustained after a fall due to adverse weather conditions, resulting in an elbow fracture. The incident occurred when the patient was exiting her vehicle, during which she slipped and placed her hand out for balance, causing her elbow to bear the majority of her body weight. The fracture has been associated with local pain and tenderness, with specific sensitivity reported in the elbow region. Additionally, she notes difficulties with arm movement due to tendinitis, which has led to numbness in the associated fingers. The pain has disrupted her daily activities such as personal grooming and exercise. She has a significant medical history of asthma requiring annual nebulizer usage, hypothyroidism managed with Levothyroxine since her thyroidectomy in 2002, and recent cataract surgery in 2020. The patient also notes a history of colon polyps, last addressed during colonoscopy in 2020, with a plan for another colonoscopy this year. Depression is also reported, impacting her ability to perform daily activities. Previous interventions for polyp removal and associated preventive screenings are up to date. She experiences an allergic reaction to NSAIDs, characterized by swelling. - Mammography up to date with last performed the previous year - Current with colonoscopy, next scheduled for December 04 - PAP smear due in 2023, with follow-up planned - Tetanus vaccination administered last year - Managing asthma with a prescribed nebulizer for annual exacerbation control - Currently on Levothyroxine for thyroid management - Lipid profile, renal and liver function tests planned to monitor existing cholesterol, kidney, and liver health problems - Regular follow-ups for vision post-cataract surgery, corrected in 2020 [facility] Medical History GERD (gastroesophageal reflux disease) Class 2 obesity with body mass index (BMI) of 37.0 to 37.9 in adult Physical exam Obesity due to excess calories Colon polyps Sleep apnea Vitamin D deficiency Postablative hypothyroidism Microscopic hematuria Low back pain Hypothyroidism Right lower quadrant abdominal pain Surgical History S/P cataract extraction Hx of colonoscopy History of thyroidectomy History of hand surgery Hx of thumb surgery Family History Father CHF (congestive heart failure) Pacemaker Mother CAD (coronary artery disease) Palpitations Maternal Aunt Thyroid disease Liver cancer Sister No problems noted. Son No problems noted. 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 1. Little interest or pleasure in doing things: nearly every day 2. Feeling down, depressed, or hopeless: not at all 3. Trouble falling or staying asleep, or sleeping too much: not at all 4. Feeling tired or having little energy: not at all 5. Poor appetite or overeating: not at all 6. Feeling bad about yourself - or that you are a failure or have let yourself or your family down: not at all 7. Trouble concentrating on things, such as reading the newspaper or watching television: not at all 8. Moving or speaking so slowly that other people could have noticed. Or the opposite - being so fidgety or restless that you have been moving around a lot more than usual: not at all 9. Thoughts that you would be better off or of hurting yourself in some way: not at all Total score: 3 Depression Screening Interpretation: Positive Depression Screening Follow-up: Existing condition and Follow-up Visit Requested Depression Screening Done: Yes 84545 - PHQ-9 Billing: Yes Source: Developed by Drs. Boubacar Arambula, Brittany Martin, Frank Rodriguez and colleagues, with an educational imelda from [employer]. Thrive Questionnaire Date Thrive assessed: 10/16/24 I am a: Patient What is your living situation today?: I have a steady place to live Within the past 12 months, did the food you bought not last and you didn't have the money to get more?: Never true Within the past 12 months, did you worry whether your food would run out before you got money to buy more?: Never true Do you have trouble paying for medicines?: No Do you have trouble getting transportation to medical appointments?: No Do you have trouble paying your heating and electricity bill?: No Do you have trouble taking care of your child, family member or friend?: No Do you have trouble with day-to-day activities such as bathing, preparing meals, shopping, managing finances, etc.?: I choose not to answer this question Are you currently unemployed and looking for a job?: Yes Are you interested in more education?: I choose not to answer this question Please select the resources that you would like help with: None Currently or been in a relationship where the following occur: I choose not to answer THRIVE Score: 0 AUDIT C Alcohol Use Questionnaire (AUDIT-C) 1. How often do you have a drink containing alcohol?: Never Total Score: 0 Score Reviewed/Action Taken: No KERRY-7 AMB Questionnaire KERRY-7 Date KERRY - 7 assessed: 10/16/24 Feeling nervous, anxious, or on edge: 0 = Not at all Not being able to stop or control worryin = Not at all Worrying too much about different things: 0 = Not at all Trouble relaxin = Not at all Being so restless that it is hard to sit still: 0 = Not at all Becoming easily annoyed or irritable: 0 = Not at all Feeling afraid as if something awful might happen: 0 = Not at all Total KERRY-7 score (0-4 normal; 5-9 mild; 10-14 moderate; 15-21 severe): 0 Source: Developed by Drs. Boubacar Arambula, Brittany Martin, Frank Rodriguez and colleagues, with an educational imelda from [employer]. KERRY-7 Assessment Billing KERRY-7 Assessment Tool: KERRY-7 Assessment 29985 Review of Systems Const All systems reviewed & are unremarkable except as noted in HPI and below Card Denies chest pain at rest, Denies chest pain with activity, Denies edema, Denies irregular heart rhythm, Denies claudication, Denies dyspnea, Denies dyspnea on exertion, Denies orthopnea, Denies paroxysmal nocturnal dyspnea and Denies slow heart rate Resp Denies cough, Denies dyspnea and Denies dyspnea on exertion GI Denies abdominal pain, Denies change in bowel habits, Denies excessive flatus, Denies nausea and Denies vomiting Physical exam (Primary Care) Vital Signs: Last Vital Signs BP 132/80 10/16/24 17:30 BMI result Body Mass Index 38.3 Tobacco/Smoking Status: Tobacco use Status Tobacco use date assessed 10/16/24 10/16/24 17:35 Patient Tobacco Use Status Former Tobacco user 10/16/24 17:30 Tobacco use type Cigarette 10/16/24 17:30 e-Cigarette/Vaping Use Never Used 10/16/24 17:30 PHQ-9: PHQ-9 Score PHQ-9: Total score 3 10/16/24 17:46 Depression Screening Interpretation: Positive Depression Screening Follow-up: Existing condition and Follow-up Visit Requested Thrive Assessment: Date of Thrive Assessment Date Thrive assessed 10/16/24 10/16/24 17:30 Currently or been in a relationship where the following occur: I choose not to answer HENMT Head: Yes normal to inspection, Yes normocephalic and Yes atraumatic Ears: external ears normal Eyes General: appearance normal, both eyes and all related structures Eyelids: Yes eyelids normal Conjunctivae: conjunctivae normal Neck Neck: Yes normal visual inspection and Yes supple Resp Effort & Inspection: normal respiratory effort Auscultation: clear to auscultation bilaterally Cardio Jugular venous distension: no JVD Rate: regular rate Rhythm: regular rhythm Heart sounds: S1 normal heart sound present and S2 normal heart sound present GI Inspection: Yes normal to inspection Palpation (GI): Soft to palpation and nontender Auscultation: normal bowel sounds Skin General skin exam: no rashes or lesions noted Neuro General: no focal motor deficits Extrem General: Yes full ROM Psych Appearance: grossly normal Coding Level of Care Code Complex EM visit Add On G2211 Diagnoses Physical exam Z00.00 Additional Codes KERRY-7 Assessment Billing - KERRY-7 Assessment Tool: KERRY-7 Assessment 03464 ([id number]) PHQ-9 - 62118 - PHQ-9 Billing: Yes ([id number]) Time Spent (min) 34 Assessment & Plan Assessment & Plan (1) Physical exam: Code(s): Z00.00 - Encounter for general adult medical examination without abnormal findings Category: Medical Plan The plan for this follow-up visit involves continued orthopedic evaluation and management for the patient's elbow fracture and tendinitis, including suggested rehabilitation exercises to alleviate symptoms and improve mobility. Levothyroxine will continue at the current dosage for hypothyroidism, accompanied by scheduled thyroid function tests. Asthma symptoms will be managed with annual nebulizer use. Upcoming preventive screenings, such as the colonoscopy, are highlighted, alongside routine cholesterol and metabolic panels. Monitoring of the patient?s mental health and addressing depressive symptoms with potential therapeutic options at future assessments remain essential. Weight management discussions inclusive of diet and exercise routines are advised to optimize her health goals, considering possible pharmacotherapeutic initiatives if insurance permits. All reported allergies, particularly to NSAIDs, will remain notated to avoid adverse reactions in prescriptions. Patient was informed and verbally consented to the use of an ambient scribe for clinic note documentation during this visit. I communicated the importance of adherence to current therapeutic regimens, particularly in managing hypothyroidism and preventing further musculoskeletal complications. I discussed the patient's elbow fracture and tendinitis, emphasizing the role of rehabilitation in recovery while monitoring for any pain escalation or movement restrictions. Preventive care through colorectal and breast cancer screenings remains paramount, and the patient understands the scheduling and preparatory requirements for upcoming tests. We also reviewed her asthma management plan and arranged for annual medication reliance. Additionally, depression?s impact on her daily routine was acknowledged, with future plans to explore counseling services or pharmacotherapy as needed. Together, we explored weight management options, contrasting surgical intervention with exercise and dietary improvements. We discussed potential pharmaceutical aid contingent on insurance authorization, and she expressed understanding of insurance-related constraints and pricing concerns. We agreed on obtaining relevant lab screenings and the subsequent follow-up session for lab reviews and any necessary interventions. Orders: Orders Thyroid Stimulating Hormone Today E03.9 - Hypothyroidism, unspecified Lipid Panel Today E78.5 - Hyperlipidemia, unspecified Comprehensive Howe. Panel Fast Today Z00.00 - Encounter for general adult medical examination without abnormal findings Vitamin D 25-OH Total Today E55.9 - Vitamin D deficiency, unspecified Patient Instructions: - Continue elbow rehabilitation exercises as advised by the surgical training specialist - Take Levothyroxine daily as prescribed, attend follow-up thyroid tests - Prepare for upcoming colonoscopy and PAP smear as scheduled - Use nebulizer for asthma management as needed - Maintain current exercise within safe limits and modify diet for weight control - Monitor mental well-being and seek help if depressive symptoms escalate - Avoid NSAID usage due to allergy - Follow up for lab results and further management plans
[2024-10-16 17:30] VITALS: BP 132/80; BMI 38.3
== END 2024-10-16 17:56 | disposition home or self-care (01) ==
LOC: HO.HMCH 17:24
PROVIDERS: PCP Internal Medicine; Visit Provider Internal Medicine
DX: Z00.00 Encounter for general adult medical examination without abnormal findings (principal)

== ENCOUNTER → 2024-10-16 17:23 | Outpatient (BNVA) | payer OTHER, SELFPAY | PROVIDERS: PCP Internal Medicine; Visit Provider Internal Medicine | DX: Z00.00 Encounter for general adult medical examination without abnormal findings (principal); E03.9 Hypothyroidism, unspecified; J45.909 Unspecified asthma, uncomplicated; Z79.899 Other long term (current) drug therapy; Z86.0101 Personal history of adenomatous and serrated colon polyps | CPT/HCPCS: 96127; 99396 ==

== ENCOUNTER 2024-10-24 09:50 | Outpatient (REF) | payer OTHER, SELFPAY ==
--- NOTE | ~2024-10-24 | XR_ITS ---
CLINICAL HISTORY: M25.521 - Pain in right elbow Right elbow three views Comparison: 10/10/2022 Findings: Healing radial head fracture is unchanged. Alignment remains anatomic. No new bony abnormality noted. Impression: Healing radial head fracture This document has been electronically signed by: Rizwan Herrera MD on 10/24/2024 21:37:22
--- OUTSIDE RECORDS SUMMARY | 2024-10-25 11:13 | XMS_ITS | Clinical Summary ---
Author Organization [employer] Address [address] [facility] [address] [place] [address] Care Team Providers Care Marine Fisheries Technician Name Role Phone Unavailable Primary Care Provider [...]
--- OUTSIDE RECORDS SUMMARY | 2024-10-25 11:13 | XMS_ITS | Clinical Summary ---
Author Organization [employer] [employer] [facility] ity Address [address] [place] [address] Care Team Providers Care Branch Operations Coordinator Name Role Phone Unavailable Primary Care Provider [...]
--- OUTSIDE RECORDS SUMMARY | 2024-10-25 11:13 | XMS_ITS | Encounter Summary ---
Author Organization [employer] Address [address] [facility] [address] [place] [address] Care Team Providers Care Parking Lot Chauffeur Name Role Phone Grant Posadas MD Primary Care Prov ider Encounter Details Date Type Department Care Team (Latest Contact Info) Description 05/05/2021 Abstract [facility] CONVERSIONS Dental, Provider, DDS Social History [...] on filedocumented in this encounter Care Teams Parking Lot Chauffeur Relationship Specialty Start Date End Date Grant Posadas MD [address] [place] [address] PCP - General Internal Medicine 10/31/19 04/07/23 documented as of this encounter
--- OUTSIDE RECORDS SUMMARY | 2024-10-25 11:13 | XMS_ITS | Encounter Summary ---
Author Organization [employer] Address [address] [facility] [address] [place] [address] Care Team Providers Care Gas Pumper Name Role Phone Grant Posadas MD Primary Care Prov ider Encounter Details Date Type Department Care Team (Latest Contact Info) Description 02/03/2019 Abstract [facility] CONVERSIONS Dental, Provider, DDS Social History Tobacco [...] on filedocumented in this encounter Care Teams Gas Pumper Relationship Specialty Start Date End Date Grant Posadas MD [address] [place] [address] PCP - General Internal Medicine 10/31/19 04/07/23 documented as of this encounter
== END 2024-10-24 09:51 | disposition home or self-care (01) ==
LOC: HO.HOSX 09:50
DX: M25.521 Pain in right elbow (principal); S52.121D Displaced fracture of head of right radius, subsequent encounter for closed fracture with routine healing
CPT/HCPCS: 73080; 99212

== ENCOUNTER 2024-10-24 10:33 | Outpatient (AMB) | payer OTHER, SELFPAY ==
[2024-10-24 10:38] VITALS: BMI 38.3
--- NOTE | 2024-10-24 10:38 | A.OFFVIS_ITS ---
Vital Signs 10/24/24 10:38 Height 5 ft 3 in Weight 216 lb BMI 38.3 Intake Visit Reasons: OV- Right Radial Head Fracture 10/01/24 Intake Note: Mela is a 58 year old right hand dominant female who presents today for follow up status post right radial head fracture, DOI: 10/01/24. At their last visit patient was advised she should only wear the sling for high-risk situations and comfort, coming out of it to work on gentle range of motion of the right wrist and elbow. Patient was educated that she should not be pushing through pain to move the elbow yet. Allergies NSAIDS (Non-Steroidal Anti-Inflamma Allergy (Severe, Verified 10/24/24 10:40) swelling of tongue naproxen [From NAPROSYN] Allergy (Mild, Verified 10/24/24 10:40) SWELLING, tongue swelling HPI HPI OV- Right Radial Head Fracture 10/01/24: Details: Mela is a 58 year old right hand dominant female who presents today for follow up status post right radial head fracture, DOI: 10/01/24. At their last visit patient was advised she should only wear the sling for high-risk situations and comfort, coming out of it to work on gentle range of motion of the right wrist and elbow. Patient was educated that she should not be pushing through pain to move the elbow yet. [facility] Medical History GERD (gastroesophageal reflux disease) Class 2 obesity with body mass index (BMI) of 37.0 to 37.9 in adult Physical exam Obesity due to excess calories Colon polyps Sleep apnea Vitamin D deficiency Postablative hypothyroidism Microscopic hematuria Low back pain Hypothyroidism Right lower quadrant abdominal pain Surgical History S/P cataract extraction Hx of colonoscopy History of thyroidectomy History of hand surgery Hx of thumb surgery Family History Father CHF (congestive heart failure) Pacemaker Mother CAD (coronary artery disease) Palpitations Maternal Aunt Thyroid disease Liver cancer Sister No problems noted. Son No problems noted. 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 Neuro: Normal sensation of the tips of all digits of the right hand at this time Vascular: Cap refill brisk Pain: Tenderness to palpation of the R radial head Some discomfort with range of motion of the right elbow, vastly improved from previous visit Patient is able to extend the right elbow to approximately 10 degrees and flex to approximately 120 degrees Minimal tenderness to palpation of the right wrist ROM: Limited ROM of the R wrist and elbow due to pain Skin: No lacerations or abrasions. General: No ecchymosis, erythema, or evidence of infection. Psych: Appears grossly normal Affect normal Attitude cooperative Results Reviewed Results Reviewed: X-rays obtained in the office today and independently reviewed by me, Singh Daniel PA-C, demonstrate nondisplaced R radial head fracture. Assessment & Plan Assessment & Plan (1) Fracture of head of right radius: Code(s): S52.121A - Displaced fracture of head of right radius, initial encounter for closed fracture Category: Medical (2) De Quervain's tenosynovitis: Code(s): M65.4 - Radial styloid tenosynovitis [de Quervain] Category: Medical Plan 1. R radial head fracture 10/01/24 Patient is educated about this injury Patient is educated about the typical recovery course At this time, patient is advised that she should only be wearing the sling for high-risk situations and for comfort, and should be coming out of it to work on gentle range of motion of the right wrist and elbow OT referral for gentle active range of motion of the right elbow and wrist Patient is amenable to this plan Follow-up in 3 weeks with repeat x-rays for reassessment, anticipate OT referral at that time, sooner with any acute concerns Orders: Orders XR elbow RT min 3V Today M25.521 - Pain in right elbow OT Evaluation and Treatment Today M65.4 - Radial styloid tenosynovitis [de Quervain], S52.121A - Displaced fracture of head of right radius, initial encounter for closed fracture Coding Level of Care Code Global (18267) Diagnoses Fracture of head of right radius S52.121A De Quervain's tenosynovitis M65.4
--- OUTSIDE RECORDS SUMMARY | 2024-10-24 11:49 | XMS_ITS | Encounter Summary ---
Author Organization [employer] Address [address] [place] [address] Care Team Providers Care Medical Superintendent Name Role Phone Grant Posadas MD Primary Care Prov ider Encounter Details Date Type Department Care Team (Latest Contact Info) Description 02/03/2019 Abstract [facility] CONVERSIONS Dental, Provider, DDS Social History Tobacco [...] on filedocumented in this encounter Care Teams Medical Superintendent Relationship Specialty Start Date End Date Grant Posadas MD [address] [place] [address] PCP - General Internal Medicine 10/31/19 04/07/23 documented as of this encounter
--- OUTSIDE RECORDS SUMMARY | 2024-10-24 11:49 | XMS_ITS | Clinical Summary ---
Author Organization [employer] Address [address] [facility] [address] [place] [address] Care Team Providers Care Hand Sprayer Name Role Phone Unavailable Primary Care Provider [...]
--- OUTSIDE RECORDS SUMMARY | 2024-10-24 11:49 | XMS_ITS | Encounter Summary ---
Author Organization [employer] Address [address] [facility] [address] [place] [address] Care Team Providers Care Interdisciplinary Professor Name Role Phone Grant Posadas MD Primary Care Prov ider Encounter Details Date Type Department Care Team (Latest Contact Info) Description 05/05/2021 Abstract [facility] CONVERSIONS Dental, Provider, DDS Social History Tobacco [...] on filedocumented in this encounter Care Teams Interdisciplinary Professor Relationship Specialty Start Date End Date Grant Posadas MD [address] [place] [address] PCP - General Internal Medicine 10/31/19 04/07/23 documented as of this encounter
--- OUTSIDE RECORDS SUMMARY | 2024-10-24 11:49 | XMS_ITS | Clinical Summary ---
Author Organization [facility] [employer] [facility] it[facility] Address [address] [place] [address] Care Team Providers Care Automotive Tire Tester Name Role Phone Unavailable Primary Care Provider [...]
== END 2024-10-24 11:02 | disposition home or self-care (01) ==
LOC: HO.HOS 10:34
PROVIDERS: PCP Internal Medicine
DX: S52.121A Displaced fracture of head of right radius, initial encounter for closed fracture (principal); M65.4 Radial styloid tenosynovitis [de Quervain]
CPT/HCPCS: 99213

== ENCOUNTER → 2024-10-24 10:35 | Outpatient (BNV) | payer OTHER, SELFPAY | PROVIDERS: Visit Provider Radiology Diagnostic Radiology | DX: M25.521 Pain in right elbow (principal) | CPT/HCPCS: 73080 ==

== ENCOUNTER 2024-11-10 09:34 | Outpatient (REF) | payer OTHER, SELFPAY ==
--- OUTSIDE RECORDS SUMMARY | 2024-11-10 10:10 | XMS_ITS | Clinical Summary ---
Author Organization [facility] [employer] [facility] ity Address [address] [place] [address] Care Team Providers Care Windows Admin Name Role Phone Unavailable Primary Care Provider [...]
[2024-11-10 13:02] LABS: Thyroid Stimulating Hormone 0.92 uIU/mL (0.32-4.0); Vitamin D 25-OH Total 28.3 ng/mL (>30)
[2024-11-10 13:06] LABS: Anion Gap 10 (12-20)
[2024-11-10 13:10] LABS: Alanine Aminotransferase 27 U/L (0-31); Albumin Level 4.3 g/dL (3.5-5.0); Alkaline Phosphatase 130 U/L (39-117); Aspartate Amino Transferase 29 U/L (5-31); Bilirubin Total 0.3 mg/dL (0.0-1.0); Blood Urea Nitrogen 10 mg/dL (9-16); Calcium 9.2 mg/dL (8.4-10.2); Carbon Dioxide 25 mmol/L (22-29); Chloride 111 mmol/L (96-108); Cholesterol 171 mg/dL (<200); Estimated Glomerular Filt Rate > 60; Glucose Fasting 96 mg/dL (60-99); HDL Cholesterol 71 mg/dL (>40); LDL Cholesterol Calculated 80 mg/dL (<100); Potassium 4.2 mmol/L (3.3-5.1); Sodium 142 mmol/L (135-145); Total Protein 7.4 g/dL (6.5-8.0); Triglycerides 101 mg/dL (<150)
== END 2024-11-10 09:35 | disposition home or self-care (01) ==
LOC: HO.LAB 09:34
PROVIDERS: PCP Internal Medicine; Visit Provider Internal Medicine
DX: Z00.00 Encounter for general adult medical examination without abnormal findings (principal); E03.9 Hypothyroidism, unspecified; E78.5 Hyperlipidemia, unspecified; E55.9 Vitamin D deficiency, unspecified
CPT/HCPCS: 36415; 80053; 80061; 82306; 84443

== ENCOUNTER 2024-11-17 10:07 | Outpatient (REF) | payer OTHER, SELFPAY ==
--- NOTE | ~2024-11-17 | XR_ITS ---
EXAMINATION: XR ELBOW 3 VIEWS RIGHT HISTORY: M25.521 - Pain in right elbow COMPARISON: Comparison is made with the prior examination dated 10/24/2024. FINDINGS: Three views of the right elbow are submitted. Osseous mineralization is normal. Again seen is a fracture of the radial head. The fracture line remains visible. The joint spaces are preserved. There is a persistent small joint effusion. XR/XR elbow RT min 3V IMPRESSION: Fracture of the radial head without change. Electronically signed by: Boubacar Izquierdo MD 11/17/2024 12:59 PM EDT
--- OUTSIDE RECORDS SUMMARY | 2024-11-17 10:55 | XMS_ITS | Clinical Summary ---
Author Organization [employer] [employer] [facility] ity Address [address] [place] [address] Care Team Providers Care Photographic Technician Name Role Phone Unavailable Primary Care [...]
== END 2024-11-17 10:08 | disposition home or self-care (01) ==
LOC: HO.HOSX 10:07
DX: M25.521 Pain in right elbow (principal); S52.121A Displaced fracture of head of right radius, initial encounter for closed fracture; M65.4 Radial styloid tenosynovitis [de Quervain]
CPT/HCPCS: 73080; 99212

== ENCOUNTER 2024-11-17 11:18 | Outpatient (AMB) | payer OTHER, SELFPAY ==
--- NOTE | 2024-11-17 11:35 | A.OFFVIS_ITS ---
Vital Signs 11/17/24 11:45 Height 5 ft 3 in Weight 216 lb BMI 38.3 Handedness Right Intake Visit Reasons: OV- Right Radial Head Fracture 10/01/24 Intake Note: Mela is a 58 year old right hand dominant female who presents today for a follow up visit for her fracture of head of right radius, DOI: 10/01/24. Patient reports she frustration with the pain she is having. She states she is active with her grandchild and this has been difficult with her symptoms. She reports being unable to lift, flex, and extend without an exacerbation of her s ymptoms in her elbow that radiates into the right wrist. She states she is attending occupational therapy and says it has helped her. Allergies NSAIDS (Non-Steroidal Anti-Inflamma Allergy (Severe, Verified 11/17/24 11:44) swelling of tongue naproxen [From NAPROSYN] Allergy (Mild, Verified 11/17/24 11:44) SWELLING, tongue swelling HPI HPI OV- Right Radial Head Fracture 10/01/24: Details: Mela is a 58 year old right hand dominant female who presents today for a follo w up visit for her fracture of head of right radius, DOI: 10/01/24. Patient reports she frustration with the pain she is having. She states she is active with her grandchild and this has been difficult with her symptoms. She reports being unable to lift, flex, and extend without an exacerbation of her symptoms in her elbow that radiates into the right wrist. She states she is attending occupational therapy and says it has helped her. [facility]LY [facility] Medical History GERD (gastroesophageal reflux disease) Class 2 obesity with body mass index (BMI) of 37.0 to 37.9 in adult Physical exam Obesity due to excess calories Colon polyps Sleep apnea Vitamin D deficiency Postablative hypothyroidism Microscopic hematuria Low back pain Hypothyroidism Right lower quadrant abdominal pain Surgical History S/P cataract extraction Hx of colonoscopy History of thyroidectomy History of hand surgery Hx of thumb surgery Family History Father CHF (congestive heart failure) Pacemaker Mother CAD (coronary artery disease) Palpitations Maternal Aunt Thyroid disease Liver cancer Sister No problems noted. Son No problems noted. 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 Neuro: Normal sensation of the tips of all digits of the right hand at this time Vascular: Cap refill brisk Pain: Tenderness to palpation of the R radial head Some discomfort with range of motion of the right elbow, vastly improved from previous visit Patient is able to extend the right elbow to approximately 10 degrees and flex to approximately 120 degrees Minimal tenderness to palpation of the right wrist ROM: Limited ROM of the R wrist and elbow due to pain Skin: No lacerations or abrasions. General: No ecchymosis, erythema, or evidence of infection. Psych: Appears grossly normal Affect normal Attitude cooperative Results Reviewed Results Reviewed: X-rays obtained in the office today and independently reviewed by me, Singh Daniel PA-C, demonstrate nondisplaced R radial head fracture. Assessment & Plan Assessment & Plan (1) Fracture of head of right radius: Code(s): S52.121A - Displaced fracture of head of right radius, initial encounter for closed fracture Category: Medical (2) De Quervain's tenosynovitis: Code(s): M65.4 - Radial styloid tenosynovitis [de Quervain] Category: Medical Plan 1. R radial head fracture DOI10/01/24 Patient is educated about this injury Patient is educated about the typical recovery course At this time, patient is advised that she should discontinue use of the sling, and should be coming out of it to work on gentle range of motion of the right wrist and elbow OT referral for gentle active range of motion of the right elbow and wrist Patient is amenable to this plan Follow-up in 3-4 weeks with repeat x-rays for reassessment, anticipate OT referral at that time, sooner with any acute concerns Orders: Orders XR elbow RT min 3V Today M25.521 - Pain in right elbow Coding Level of Care Code Global (96295) Diagnoses Fracture of head of right radius S52.121A De Quervain's tenosynovitis M65.4
[2024-11-17 11:45] VITALS: BMI 38.3
== END 2024-11-17 12:00 | disposition home or self-care (01) ==
LOC: HO.HOS 11:19
PROVIDERS: PCP Internal Medicine
DX: S52.121A Displaced fracture of head of right radius, initial encounter for closed fracture (principal); M65.4 Radial styloid tenosynovitis [de Quervain]
CPT/HCPCS: 99213

== ENCOUNTER → 2024-11-17 11:26 | Outpatient (BNV) | payer OTHER, SELFPAY | PROVIDERS: Visit Provider Radiology Diagnostic Radiology | DX: S52.121A Displaced fracture of head of right radius, initial encounter for closed fracture (principal) | CPT/HCPCS: 73080 ==

== ENCOUNTER → 2024-11-20 14:30 | Outpatient (BNV) | payer OTHER, SELFPAY | PROVIDERS: PCP Internal Medicine; Visit Provider Internal Medicine | DX: Z12.31 Encounter for screening mammogram for malignant neoplasm of breast (principal) | CPT/HCPCS: 77063; 77067 ==

== ENCOUNTER 2024-11-20 14:34 | Outpatient (REF) | payer OTHER, SELFPAY ==
--- OUTSIDE RECORDS SUMMARY | 2024-11-20 16:17 | XMS_ITS | Clinical Summary ---
Author Organization [facility] ity Address [address] [place] [address] Care Team Providers Care Wheel Lacer And Truer Name Role Phone Unavailable Primary Care Provider [...]
== END 2024-11-20 14:35 | disposition home or self-care (01) ==
LOC: HO.MAMMO 14:34
PROVIDERS: PCP Internal Medicine; Visit Provider Internal Medicine
DX: Z12.31 Encounter for screening mammogram for malignant neoplasm of breast (principal)
CPT/HCPCS: 77063; 77067

== ENCOUNTER 2024-12-04 11:48 | Day surgery (SDC) | payer OTHER, SELFPAY ==
--- OUTSIDE RECORDS SUMMARY | 2024-11-21 12:16 | XMS_ITS | Clinical Summary ---
Author Organization [employer] Address [address] [place] [address] Care Team Providers Care Dressmaker Or Tailor Name Role Phone Unavailable Primary Care Provider [...] 1965 FIT 1965 FOBT 1965 Sigmoidoscopy 1965 Disability Screening 1965 Alcohol/Substance Use Screening 1977 Tobacco Screening 1977 Hepatitis B Vaccines (1 of 3 - 19+ 3-dose series) 1984 Pap Smear 1986 Cervical Cancer Screening 11/19/1995 HPV/Cotest 11/19/1995 Pneumococcal Vaccine: 50+ Years (1 of 1 - PCV) 11/19/2015 Zoster Vaccines (1 of 2) 11/19/2015 Mammogram 03/09/2020 03/09/2018, 03/09/2018 COVID-19 Vaccine (2023-2 5 season) 2024 08/18/2020, 07/17/2020, 06/28/2020 Influenza Vaccine (Season Ended) 2025 05/02/2018, 03/12/2017 DTaP/Tdap/Td Vaccines (2 - T d [...]
--- NOTE | 2024-12-01 10:20 | HO.ANESPROP2 ---
Documented by User: Sultana Galarza NP 12/01/24 10:37 HPI - Anesthesia Eval Consult details Narrative: 59yo F for Colonoscopy PMFSH Active Problems Active Problems: All Active Problems De Quervain's tenosynovitis (Acute) Fracture of head of right radius (Acute) GERD (gastroesophageal reflux disease) (Acute) Hypovitaminosis D (Acute) Class 2 obesity due to excess calories with body mass index (BMI) of 36.0 to 36.9 in adult (Acute) Wound, open, finger (Acute) Cellulitis (Acute) Infected finger (Acute) Women's annual routine gynecological examination (Acute) Breast cancer screening (Acute) Screening for cervical cancer (Acute) Patellofemoral arthritis of right knee (Acute) Pes anserine bursitis (Acute) Right ankle pain (Acute) Thoracic spine pain (Acute) Lower back pain (Acute) Physical exam (Acute) Aortic valve insufficiency (Acute) Pre-op evaluation (Acute) Obesity due to excess calories (Acute) Encounter for screening colonoscopy (Acute) Colon polyps (Acute) Postablative hypothyroidism (Acute) Microscopic hematuria (Acute) Low back pain (Acute) Hypothyroidism (Acute) Right lower quadrant abdominal pain (Acute) Past Medical History Medical History (Updated 12/04/24 @ 12:42 by Conchita Javier RN) JOSE (obstructive sleep apnea) GERD (gastroesophageal reflux disease) Class 2 obesity with body mass index (BMI) of 37.0 to 37.9 in adult Physical exam Obesity due to excess calories Colon polyps Sleep apnea Vitamin D deficiency Postablative hypothyroidism Microscopic hematuria Low back pain Hypothyroidism Right lower quadrant abdominal pain Family History Family History Father CHF (congestive heart failure) Pacemaker Mother CAD (coronary artery disease) Palpitations Maternal Aunt Thyroid disease Liver cancer Sister No problems noted. Son No problems noted. Brother Colon polyps Maternal Uncle Colon cancer Liver cancer Prostate cancer Surgical History Surgical History S/P cataract extraction Hx of colonoscopy History of thyroidectomy History of hand surgery Hx of thumb surgery Social History Social History Household Members: Children Housing: Apartment Are you a primary direct care provider to a significant other at home: No Do you presently have visiting nurse or other home services: No Alcohol intake: former Patient Tobacco Use Status: Former Tobacco user Tobacco use type: Cigarette Cigarettes Per Day: 3 Smoked in Last 30 Days: No e-Cigarette/Vaping Use: Never Used Second Hand Smoke Exposure: No Use of substances other than those prescribed or required for medical reasons: No Have you been hit, kicked, punched, or otherwise hurt by someone within the past year? 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 Current occupational exposures/hazards: No Cognitive needs: No Hearing needs: No Vision needs: Yes Meds Allergies Allergy/AdvReac Type Severity Reaction Status Date / Time NSAIDS (Non-Steroidal Allergy Severe swelling Verified 12/04/24 12:37 Anti-Inflamma of tongue naproxen (From NAPROSYN) Allergy Mild SWELLING, Verified 12/04/24 12:37 tongue swelling Home Medications ?Medication ?Instructions ?Recorded ?Confirmed ?Last Taken ?Type multivitamin 1 tab PO DAILY 08/08/20 12/04/24 Unknown History Exam Narrative Narrative: ECHO 2022 Assessment and Plan Assessment Anesthesia Assessment: Chart Reviewed Documented by User: Shamir Gordon MD 12/04/24 15:35 [facility] Past Medical History Medical History (Updated 12/04/24 @ 12:42 by Conchita Javier RN) JOSE (obstructive sleep apnea) GERD (gastroesophageal reflux disease) Class 2 obesity with body mass index (BMI) of 37.0 to 37.9 in adult Physical exam Obesity due to excess calories Colon polyps Sleep apnea Vitamin D deficiency Postablative hypothyroidism Microscopic hematuria Low back pain Hypothyroidism Right lower quadrant abdominal pain Family History Family History Father CHF (congestive heart failure) Pacemaker Mother CAD (coronary artery disease) Palpitations Maternal Aunt Thyroid disease Liver cancer Sister No problems noted. Son No problems noted. Brother Colon polyps Maternal Uncle Colon cancer Liver cancer Prostate cancer Family history of problems with anesthesia: No Surgical History Surgical History S/P cataract extraction Hx of colonoscopy History of thyroidectomy History of hand surgery Hx of thumb surgery History of Problems with Anesthesia: No Social History Social History Household Members: Children Housing: Apartment Are you a primary direct care provider to a significant other at home: No Do you presently have visiting nurse or other home services: No Alcohol intake: former Patient Tobacco Use Status: Former Tobacco user Tobacco use type: Cigarette Cigarettes Per Day: 3 Smoked in Last 30 Days: No e-Cigarette/Vaping Use: Never Used Second Hand Smoke Exposure: No Use of substances other than those prescribed or required for medical reasons: No Have you been hit, kicked, punched, or otherwise hurt by someone within the past year? 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 Current occupational exposures/hazards: No Cognitive needs: No Hearing needs: No Vision needs: Yes Meds Allergies Allergy/AdvReac Type Severity Reaction Status Date / Time NSAIDS (Non-Steroidal Allergy Severe swelling Verified 12/04/24 12:37 Anti-Inflamma of tongue naproxen (From NAPROSYN) Allergy Mild SWELLING, Verified 12/04/24 12:37 tongue swelling Home Medications ?Medication ?Instructions ?Recorded ?Confirmed ?Last Taken ?Type multivitamin 1 tab PO DAILY 08/08/20 12/04/24 Unknown History Exam Airway Mallampati Class: II TM Dist: <=3cm Neck ROM: Full Loose/Missing/Broken Teeth: Yes, Upper and Lower Heart: ok Lungs: ok Assessment and Plan Assessment Anesthesia Assessment: Anesthesia Plan Discussed Final Anesthetic Review Family History of Problems with Anesthesia: No History of Problems with Anesthesia: No NPO: Yes ASA Class: III Final Preanesthetic Review: No Changes in Pt Med Stat, Meds/Allgs Chart Reviewed, Consent Obtained/Reviewed and Anes Risks/Benef Reviewed Patient Risk: Intermediate Procedure Risk: Low Anesthetic Plan Anesthetic Plan: MAC: and Agree w/ Assess. and Plan Disposition: Standard PACU
[2024-12-04 12:47] VITALS: BP 121/71; PULSE 96; RESP 16; TEMP 36.6; O2SAT 97; BMI 38.2
[2024-12-04] MEDS: Lactated Ringers 1,000 ML 100 ML IVCONT (13:16)
--- NOTE | 2024-12-04 14:00 | MHC.SHP ---
Pre-Procedural Eval Section A - 24 Hr Update-Section A only Date of Service: 12/04/24 The patient is an INPATIENT: No The patient has been examined within 24 hours of the surgical procedure. The History & Physical has been completed within 30 days and I have reviewed it.: No Section B - Complete if H&P > 30 days Chief Complaint: Surveillance of colon polyps Relevant Family History (Specify if Yes): Yes Relevant Social History: Tobacco Use (Former smoker) Present Medications: see Short Stay Collaborative assessment Medical History: Significant History (Colon polyps Sleep apnea Vitamin D deficiency Postablative hypothyroidism Microscopic hematuria Low back pain Hypothyroidism Right lower quadrant abdominal pain) History of Previous Operations: Relevant previous surgery/procedure and date(s) (S/P cataract extraction Hx of colonoscopy History of thyroidectomy History of hand surgery Hx of thumb surgery) Allergies: Allergies Allergy/AdvReac Type Severity Reaction Status Date / Time NSAIDS (Non-Steroidal Allergy Severe swelling Verified 12/04/24 12:37 Anti-Inflamma of tongue naproxen (From NAPROSYN) Allergy Mild SWELLING, Verified 12/04/24 12:37 tongue swelling Review of Systems Sugical H&P ROS: Negative: Constitution, Cardiovascular, Respiratory and Gastrointestinal Exam Surgical H&P Exam: Normal: Heart, Normal: Lungs, Normal: Extremities and Normal: Abdomen Plan Diagnosis/Plan: Unchanged I have reviewed the history and physical and performed a pertinent physical examination on my patient. No changes have occurred unless specified. Time Spent With Patient Time: Total time managing care of this patient today ____ minutes.
--- NOTE | 2024-12-04 14:18 | PC.NURSE ---
Report given to PREOP nurse Rosaline Sweeney.
[2024-12-04 15:55] VITALS: BP 94/44; PULSE 76; RESP 18; TEMP 36.1; O2SAT 96
--- NOTE | 2024-12-04 15:57 | P.OPN-COLO_ITS ---
Colonoscopy Operative Note Operative Note Date of Service: 12/04/24 Narrative: COLONOSCOPY TILL CECUM WITH BIOPSIES AND SNARE POLYPECTOMY AND HEMOCLIP PLACEMENT Pre-op diagnosis: Surveillance for colon polyps. Post-op diagnosis:? Colon polyps, Diverticulosis, hemorrhoids Endoscopist:? Jeancarlos Savage MD Anesthesia:?MAC Consent: Indications for the procedure and potential complications of bleeding, perforation, reaction to medications and missed diagnosis were discussed with the patient and informed consent was obtained. Instrument: Olympus PCF H 190 L variable stiffness pediatric colonoscope Monitoring: Vital signs and clinical assessment, intermittent blood pressure monitoring, continuous EKG monitoring, Pulse oximetry and Carbon Dioxide monitoring were done throughout the procedure. Please see anesthesia flowsheet. Colon withdrawl time was 20 minutes. Procedure: The patient was placed in the left lateral decubitis position and pre-procedure medications were administered. After a digital rectal examination of the ano-rectum, the video colonoscope was inserted into the rectum and advanced through the colon to the cecum. The colonoscope was slowly withdrawn in a retrograde panoramic fashion and the colon mucosa was carefully examined including a retroflexed view of the rectum. Findings and interventions are described below. Procedure Difficulty: without difficulty Findings: Terminal Ileum: Not evaluated Cecum: Normal Ascending Colon: Normal Transverse Colon: Two 5-7 mm sessile polyps - removed with a cold snare Descending Colon: Moderate diverticulosis Sigmoid Colon: A 7-8 mm sessile polyp - removed with a cold snare. Polypectomy site was closed with 1 hemoclip. A 5-6 mm sessile polyps - removed with a cold snare. Moderate diverticulosis Rectum: a 3-4 diminutive appearing polyp - removed with a cold biopsy. Patchy erythema in the distal rectum - biopsies were obtained to rule out proctitis Ano-rectum: Normal Colon preparation: Excellent, after some irrigation. [place] Bowel Preparation Scale Right colon; 3 Transverse colon: 3 Left colon; 3 (0 = Unprepared colon segment with mucosa not seen due to solid stool that cannot be cleared. 1 = Portion of mucosa of the colon segment seen, but other areas of the colon segment not well seen due to staining, residual stool and/or opaque liquid. 2 = Minor amount of residual staining, small fragments of stool and/or opaque liquid, but mucosa of colon segment seen well. 3 = Entire mucosa of colon segment seen well with no residual staining, small fragments of stool or opaque liquid) Impression and Post Procedure Diagnosis: Colonoscopy Findings: Four small polyps were removed Moderate diverticulosis seen in the left colon Plan: I will send a letter with biopsy results. Repeat Colonoscopy in 3-5 years if polyps are adenomatous and 10 year if polyps are hyperplastic. Above findings were reviewed with the patient and relevant handouts were given and the discharge area. BIOPSIES SHOWED: A. Colon, transverse, polypectomy: Tubular adenoma; negative for high-grade dysplasia. B. Colon, sigmoid, polypectomy: Tubular adenoma, diminutive; negative for high- grade dysplasia. C. Rectum, polypectomy: Tubular adenoma; negative for high-grade dysplasia. D. Rectum, biopsies: Rectal mucosa within normal limits; negative for active, chronic or microscopic colitis. Letter sent to the patient with biopsy results. Patient was placed on the colonoscopy recall list for repeat colonoscopy in 3 years.
[2024-12-04 16:05] VITALS: BP 119/75; PULSE 83; RESP 16; TEMP 36.1; O2SAT 98
== END 2024-12-04 16:07 | disposition home or self-care (01) ==
PROVIDERS: PCP Internal Medicine; Visit Provider Internal Medicine Gastroenterology
PROC: 0DJD8ZZ Inspection of Lower Intestinal Tract, Via Natural or Artificial Opening Endoscopic (ICD-10-PCS; CPT 45378; principal; 2024-12-04 14:20)
DX: Z12.11 Encounter for screening for malignant neoplasm of colon (principal); D12.3 Benign neoplasm of transverse colon; D12.5 Benign neoplasm of sigmoid colon; D12.8 Benign neoplasm of rectum; K57.30 Diverticulosis of large intestine without perforation or abscess without bleeding; K64.8 Other hemorrhoids; Z86.0101 Personal history of adenomatous and serrated colon polyps; E55.9 Vitamin D deficiency, unspecified; E03.9 Hypothyroidism, unspecified; G47.33 Obstructive sleep apnea (adult) (pediatric); K21.9 Gastro-esophageal reflux disease without esophagitis; K59.01 Slow transit constipation; E66.09 Other obesity due to excess calories; Z68.38 Body mass index [BMI] 38.0-38.9, adult; Z87.891 Personal history of nicotine dependence; Z79.899 Other long term (current) drug therapy
CPT/HCPCS: 45385; 45380; 88305; J2003; J2704; J3010

== ENCOUNTER → 2024-12-04 11:48 | Outpatient (BNV) | payer OTHER, SELFPAY | PROVIDERS: PCP Internal Medicine; Visit Provider Internal Medicine Gastroenterology | DX: Z12.11 Encounter for screening for malignant neoplasm of colon (principal); D12.3 Benign neoplasm of transverse colon; D12.5 Benign neoplasm of sigmoid colon; D12.8 Benign neoplasm of rectum; K64.8 Other hemorrhoids; K57.90 Diverticulosis of intestine, part unspecified, without perforation or abscess without bleeding | CPT/HCPCS: 45380; 45385 ==

== ENCOUNTER 2024-12-11 09:37 | Outpatient (REF) | payer OTHER, SELFPAY ==
--- NOTE | ~2024-12-11 | XR_ITS ---
EXAMINATION: XR ELBOW, RIGHT CLINICAL INFORMATION: M25.521 - Pain in right elbow COMPARISON: 11/17/2024. TECHNIQUE: AP, lateral, and oblique views of the right elbow. FINDINGS: Redemonstration of joint effusion. Redemonstration of a radial head fracture without displacement. The fracture line remains visible although it is somewhat indistinct, likely indicating some degree of early healing. There is normal alignment. No additional fracture or bone lesion. No soft tissue abnormality. XR/XR elbow RT min 3V IMPRESSION: Fracture of the radial head, stable in alignment without significant change. Persistent joint effusion. Electronically signed by: Herberth Sanders MD 12/11/2024 11:46 AM EDT
--- OUTSIDE RECORDS SUMMARY | 2024-12-11 10:09 | XMS_ITS | Clinical Summary ---
Author Organization [facility] ity Address [address] [place] [address] Care Team Providers Care Scratch Brusher Name Role Phone Unavailable Primary Care Provider [...] 2023-2 5 season) 2024 Influenza Vaccine (#1) 2025 RSV Immunization Adult Patie nts (1 - 1-dose 75+ series) 2040 HIB [...]
--- OUTSIDE RECORDS SUMMARY | 2024-12-11 10:09 | XMS_ITS | Clinical Summary ---
Author Organization [employer] Address [address] [place] [address] Care Team Providers Care Head Charrer Name Role Phone Unavailable Primary Care Provider [...] 2024 08/18/2020, 07/17/2020, 06/28/2020 Influenza Vaccine (#1) 2025 8, 03/12/2017 DTaP/Tdap/Td Vaccines (2 - T [...]
== END 2024-12-11 09:38 | disposition home or self-care (01) ==
LOC: HO.HOSX 09:37
DX: S52.121A Displaced fracture of head of right radius, initial encounter for closed fracture (principal); M65.4 Radial styloid tenosynovitis [de Quervain]; M25.531 Pain in right wrist; M25.521 Pain in right elbow
CPT/HCPCS: 73080; 99212

== ENCOUNTER 2024-12-11 10:36 | Outpatient (AMB) | payer OTHER, SELFPAY ==
[2024-12-11 10:44] VITALS: BMI 38.1
--- NOTE | 2024-12-11 10:44 | MHC.OFFVIS ---
Vital Signs 12/11/24 10:44 Height 5 ft 3 in Weight 215 lb BMI 38.1 Intake Visit Reasons: OV- Right Radial Head Fracture 10/01/24 Intake Note: Mela is a 58 year old right hand dominant female who presents today for a follow up visit for her fracture of head of right radius, DOI: 10/01/24. Patient is attending occupational therapy and reports she continues to have limitions to her her extension of arm. STates she is also having pain, numbness and tingling in her small and ring finger. Allergies NSAIDS (Non-Steroidal Anti-Inflamma Allergy (Severe, Verified 12/11/24 12:15) swelling of tongue naproxen (From NAPROSYN) Allergy (Mild, Verified 12/11/24 12:15) SWELLING, tongue swelling HPI HPI OV- Right Radial Head Fracture 10/01/24: Details: Mela is a 58 year old right hand dominant female who presents today for a follow up visit for her fracture of head of right radius, DOI: 10/01/24. Patient is attending occupational therapy and reports she continues to have limitions to her her extension of arm. STates she is also having pain, numbness and tingling in her small and ring finger. [facility] Medical History (Updated 12/11/24 @ 11:09 by JAYSHREE Davidson) JOSE (obstructive sleep apnea) GERD (gastroesophageal reflux disease) Class 2 obesity with body mass index (BMI) of 37.0 to 37.9 in adult Physical exam Obesity due to excess calories Colon polyps Sleep apnea Vitamin D deficiency Postablative hypothyroidism Microscopic hematuria Low back pain Hypothyroidism Right lower quadrant abdominal pain Surgical History S/P cataract extraction Hx of colonoscopy History of thyroidectomy History of hand surgery Hx of thumb surgery Family History Father CHF (congestive heart failure) Pacemaker Mother CAD (coronary artery disease) Palpitations Maternal Aunt Thyroid disease Liver cancer Sister No problems noted. Son No problems noted. 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 Neuro: Normal sensation of the tips of all digits of the right hand at this time Vascular: Cap refill brisk Pain: Mild Tenderness to palpation of the R radial head Some discomfort with range of motion of the right elbow, vastly improved from previous visit Patient is able to extend the right elbow to approximately 10 degrees and flex to approximately 120 degrees Minimal tenderness to palpation of the right wrist ROM: Limited ROM of the R wrist and elbow due to pain Skin: No lacerations or abrasions. General: No ecchymosis, erythema, or evidence of infection. Psych: Appears grossly normal Affect normal Attitude cooperative Results Reviewed Results Reviewed: X-rays obtained in the office today and independently reviewed by me, Singh Daniel PA-C, demonstrate nondisplaced R radial head fracture. Assessment & Plan Assessment & Plan (1) Fracture of head of right radius: Code(s): S52.121A - Displaced fracture of head of right radius, initial encounter for closed fracture Category: Medical (2) De Quervain's tenosynovitis: Code(s): M65.4 - Radial styloid tenosynovitis [de Quervain] Category: Medical (3) Right wrist pain: Code(s): M25.531 - Pain in right wrist Category: Medical Plan 1. R radial head fracture 2. Right wrist pain 10/01/24 Patient is educated about this injury Patient is educated about the typical recovery course At this time, patient is advised that she should discontinue use of the sling, and should be coming out of it to work on gentle range of motion of the right wrist and elbow OT referral for gentle active range of motion of the right elbow and wrist I feel that due to the persistent ongoing severe pain the patient reports that she is experiencing in the right wrist since her injury, an MRI is appropriate to assess whether there is a potential injury to the scapholunate ligament, as the pain is worst in his area. Patient is amenable to this plan Follow-up in 3-4 weeks with repeat x-rays for reassessment, anticipate OT referral at that time, sooner with any acute concerns Orders: Orders OT Evaluation and Treatment Today M25.531 - Pain in right wrist, M65.4 - Radial styloid tenosynovitis [de Quervain], M70.50 - Other bursitis of knee, unspecified knee, S52.121A - Displaced fracture of head of right radius, initial encounter for closed fracture XR elbow RT min 3V Today M25.521 - Pain in right elbow MR wrist RT wo con Today M25.531 - Pain in right wrist Coding Level of Care Code Est Pt Level 3 (85985) Diagnoses Fracture of head of right radius S52.121A De Quervain's tenosynovitis M65.4 Right wrist pain M25.531
== END 2024-12-11 11:12 | disposition home or self-care (01) ==
LOC: HO.HOS 10:37
PROVIDERS: PCP Internal Medicine
DX: S52.121A Displaced fracture of head of right radius, initial encounter for closed fracture (principal); M65.4 Radial styloid tenosynovitis [de Quervain]; M25.531 Pain in right wrist
CPT/HCPCS: 99213

== ENCOUNTER → 2024-12-11 10:39 | Outpatient (BNV) | payer OTHER, SELFPAY | PROVIDERS: Visit Provider Radiology Diagnostic Radiology | DX: S52.121A Displaced fracture of head of right radius, initial encounter for closed fracture (principal); M25.421 Effusion, right elbow | CPT/HCPCS: 73080 ==

== ENCOUNTER 2024-12-11 11:50 | Outpatient (AMB) | payer OTHER, SELFPAY ==
--- NOTE | 2024-12-11 11:53 | AM.OFFWIN_ITS ---
Intake Vital Signs 12/11/24 12:14 Height 5 ft 3 in Weight 215 lb BMI 38.1 BP 124/74 Blood Pressure Location Lt brachial Position Sitting Pulse 65 Pulse Source Pulse Oximeter Temp 98 F Temp Source Oral Pulse Oximetry (%) 96 Oxygen Delivery Method Room Air Intake Visit Reasons: EP severe pain on RT ear Intake Note: right ear pain and sharp stabbing pains below ear on neck x2 days Patient Tobacco Use Status: Former Tobacco user Allergies NSAIDS (Non-Steroidal Anti-Inflamma Allergy (Severe, Verified 12/11/24 12:15) swelling of tongue naproxen (From NAPROSYN) Allergy (Mild, Verified 12/11/24 12:15) SWELLING, tongue swelling Do you need a note to return to daycare/school/sports/work: No HPI HPI Comments History of Present Illness Details History - The patient is a 59-year-old female pr esenting with right ear pain. - The ear pain began on Wednesday and wor sened by the following day. - The pain is sharp, constant pain and e xacerbated by touching it. - She went and bought OTC lidocaine ear drops and have been helping with her pain. - Pain radiates to the right side of the jaw. - There is no associated congestion, col d, cough, or swimming history. - No ringing, discharge, or pus was repo rted. - She denies fever, chills, CP, SOB, abd pain, n/v/d, AGUILAR or sinus pressure. Physical Exam General: Cooperative, healthy appearing, comfortable and no acute distress Orientation/consciousness: Patient oriented x3 Head: Normal to inspection Ears: No tragus or mastoid tenderness noted. External ears normal and TM's normal bilaterally. Effusion noted behind the right TM. No cerumen noted, no discharge in the canal. Nose: Normal external nose present, normal nares present, and no nasal discharge present. Face and sinus: Sinuses nontender to palpation. Mouth: Normal oral and palatal mucosa present and moist mucous membranes noted. Throat: Tonsils normal. Uvula is midline. Posterior oropharynx with erythema and no exudates. Neck: Normal visual inspection, full ROM. No lymphadenopathy noted. Respiratory: Clear to auscultation bilaterally. Normal respiratory effort, able to speak in complete sentences. No respiratory distress, not tachypneic, no tripod positioning and no use of accessory muscles. Cardiovascular: Regular rate and rhythm. Normal S1 and S2 Skin: No rashes or lesions noted Patient was informed and verbally consented to the use of an ambient scribe for clinic note documentation during this visit [facility] Medical History (Updated 12/11/24 @ 11:09 by JAYSHREE Davidson) JOSE (obstructive sleep apnea) GERD (gastroesophageal reflux disease) Class 2 obesity with body mass index (BMI) of 37.0 to 37.9 in adult Physical exam Obesity due to excess calories Colon polyps Sleep apnea Vitamin D deficiency Postablative hypothyroidism Microscopic hematuria Low back pain Hypothyroidism Right lower quadrant abdominal pain Surgical History S/P cataract extraction Hx of colonoscopy History of thyroidectomy History of hand surgery Hx of thumb surgery Family History Father CHF (congestive heart failure) Pacemaker Mother CAD (coronary artery disease) Palpitations Maternal Aunt Thyroid disease Liver cancer Sister No problems noted. Son No problems noted. 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 Current occupational exposures/hazards: No Cognitive needs: No Hearing needs: No Vision needs: Yes Female Reproductive History Menstrual Age of Menarche: 12 Review of Systems Const All systems reviewed & are unremarkable except as noted in HPI and below Physical Exam Vital Signs: Last Vital Signs Temp 98 F 12/11/24 12:14 Pulse 65 12/11/24 12:14 BP 124/74 12/11/24 12:14 Pulse Ox 96 12/11/24 12:14 Oxygen Delivery Method Room Air 12/11/24 12:14 BMI result Body Mass Index 38.1 Assessment & Plan Assessment & Plan (1) Ear pain, right: Code(s): H92.01 - Otalgia, right ear Plan Most likely OE vs OM vs effusion Plan - Tylenol or motrin as needed for pain - continue with OTC ear drops for pain - Prescribe a decongestant and antihistamine to address fluid behind the tympanic membrane. - Advise monitoring for any signs of infection and return if symptoms persist or worsen. - VSS, pt well appearing Medications: New cetirizine-pseudoephedrine 5-120 mg ER 1 tab PO BID 14 tabs 0RF 7 days fluticasone propionate 50 mcg/actuation administer into each nostril 1 spray intranasal Q12H 16 grams 0RF Coding Level of Care Code Est Pt Level 3 (25102) Diagnoses Ear pain, right H92.01
[2024-12-11 12:14] VITALS: BP 124/74; PULSE 65; TEMP 36.6; O2SAT 96; BMI 38.1
== END 2024-12-11 12:57 | disposition home or self-care (01) ==
PROVIDERS: PCP Internal Medicine; Visit Provider Physician Assistant Medical
DX: H92.01 Otalgia, right ear (principal)

== ENCOUNTER 2024-12-13 09:26 | Outpatient (RCR) | payer OTHER, SELFPAY ==
--- NOTE | 2024-11-17 15:09 | MHC.OT.EP ---
[address] [phone] Occupational Therapy Plan of Care Patient Name: Mela Jurado Date of Evaluation: 11/17/24 Diagnosis: R Radial head fracture R De Quervains Tenosynovitis Pain Location: thumb/ radial wrist Pain Score: 7 Pain Scale Used: Numeric (0 - 10) Aggravating Factors: movement of pt's thumb Alleviating Factors: Assessment: Pt is a 58 yr old R hand dominant female who reports on 10/01 stepping on a pothole and falling causing her to fall on her R side. She reports attempting to get up when she heard a crack in her elbow. She went to the ED ; pt was diagnosed w/ a radial head fracture, and given a sling. Pt met w/ ortho who instructed her to only use the sling in public, or when performing heavy activities. She presents today w/ a positive [place]in (has a brace); decreased ROM, strength, and functional use of her R UE. She would benefit from skilled OT services to address these deficits a Return the pt to her PLOF. Frequency and Duration: The patient will be seen 2 xs a week for 6 weeks Short Term Goals: Pt will adhere to HEP Pt will adhere to jt. 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 Thank you once again for your referral.
== END 2025-02-09 11:06 | disposition home or self-care (01) ==
LOC: HO.OT 09:26
PROVIDERS: PCP Internal Medicine
DX: S52.121D Displaced fracture of head of right radius, subsequent encounter for closed fracture with routine healing (principal); M70.50 Other bursitis of knee, unspecified knee
CPT/HCPCS: 97035; 97110; 97140; 97165; 97535

== ENCOUNTER 2024-12-25 17:53 | Outpatient (REF) | payer OTHER, SELFPAY ==
--- NOTE | ~2024-12-25 | MR_ITS ---
CLINICAL HISTORY: M25.531 - Pain in right wrist --- Additional Notes or Special Instructions: Concern for SL ligament injury MR of the right wrist without contrast. No prior MR. Findings: There is motion artifact. No acute fractures are seen. There is mild 1st carpometacarpal DJD. No tendon disruption is seen. There is mild extensor carpi ulnaris tendinopathy. There is minimal multifocal tenosynovitis involving the extensor tendons. There is mild nonspecific prominence of the median nerve. Anterior to the radioscaphoid articulation there is a 7 mm ganglion. Dorsal to the scapholunate articulation there is a 3 mm ganglion. The scapholunate interval is normal. The triangular fibrocartilage appears intact. 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 Mild extensor carpi ulnaris tendinopathy. Minimal multifocal tenosynovitis of the extensor tendons. There are 2 ganglia as detailed above. Mild prominence of the median nerve could be incidental although mild neuritis is a possibility. This document has been electronically signed by: Huseyin Chen MD on 12/25/2024 19:23:54
--- OUTSIDE RECORDS SUMMARY | 2024-12-25 18:03 | XMS_ITS | Clinical Summary ---
Author Organization [facility] Address [address] [place] [phone] Phone Care Team Providers Care Foundation Relations Director Name Role Phone Corry Urena MD Primary Care Provid er Allergies Active Allergy Reactions Criticality Noted Date Comments Naproxen 04/18/2020 Medications levothyroxine (SYNTHROID, LEVOTHROID) 100 MCG tablet Take 100 mcg by mouth every morning. Active Active Problems No known active problems Family History Medical History Relation Comments Pacemaker Father Heart failure Mother Relation Status Comments Father Mother Social History Tobacco Use Types Packs/Day Years Used Date Smoking Tobacco: Some Days Smokeless Tobacco: Never Comments:3 cig per day Alcohol Use Standard Drinks/Week Comments Not Currently 0 (1 standard drink = 0.6 oz pur e alcohol) Education Answer Date Recorded Are you interested in more education? Not on albaro e 10/02/2022 Are you concerned about learning? Not on file 10/02/2022 No 10/02/2022 No 10/02/2022 Digital Access Answer Date Recorded No 10/31/2022 No 10/31/2022 No 10/31/2022 Reliable internet access at home? Not on file 10/31/2022 Device with a working camera? Not on file Comments Unknown Sex and Gender Information Value Date Recorded Sex Assigned at Not on file Legal Sex Female 9:40 PM EDT Gender Identity Not on file Sexual Orientation Not on file Last Filed Vital Signs Vital Sign Reading Time Taken Comments Blood Pressure 130/84 05/16/2020 10:14 AM EST Pulse 86 05/16/2020 10:14 AM EST Temperature - - Respiratory Rate - - Oxygen Saturation 98% 05/16/2020 10:14 AM EST Inhaled Oxygen Concentration - - Weight 83 kg (183 lb) 05/16/2020 10:14 AM EST Height 160 cm (5' 3 ) 05/16/2020 10:14 AM EST Body Mass Index 32.42 05/16/2020 10:14 AM EST Plan of Treatment Health Maintenance Due Date Last Done Comments LIPID PANEL 1965 TSH LEVEL 1965 DEPRESSION SCREENING 1977 SMOKING Hx and SMOKELESS TOB ACCO SCREENING 1978 HEPATITIS C SCREENING 11/19/1983 HIV ONE-TIME SCREENING (18-6 5 YEARS) 11/19/1983 PNEUMOCOCCAL VACCINES (50+ y ears) (1 of 2 - PCV) 1984 PAP SMEAR 1986 MAMMOGRAM 2005 COLOGUARD 2010 COLONOSCOPY 2010 COLORECTAL CANCER SCREENING 2010 FIT TEST 2010 FOBT 2010 SIGMOIDOSCOPY 2010 VIRTUAL COLONOSCOPY 2010 ZOSTER VACCINES (2 of 2) 05/30/2020 04/04/2020 COVID-19 VACCINE (2 - 2023-2 5 season) 2024 08/21/2020 Adult Td,Tdap Booster 05/20/2026 05/20/2016 HEPATITIS A VACCINES Aged Out No long er eligible based on patient's age to complete this topic HIB VACCINES Aged Out No longer eligi ble based on patient's age to complete this topic MENINGOCOCCAL VACCINES (ACWY) Aged Out No longer eligible based on patient's age to complete this topic MENINGOCOCCAL VACCINES (B) Aged Out N o longer eligible based on patient's age to complete this topic Medical Devices Not on file Insurance [facility] ACO [facility] [place] [address] [place] [address] ACO [facility] ACO [facility] ACO Care Teams Foundation Relations Director Relationship Specialty Start Date End Date Corry Urena MD [address] [place] [address] PCP - General 02/23/20 Additional Source Comments The information contained in this document represents components of the legal health record. It is not the complete legal health record.[facility]
--- OUTSIDE RECORDS SUMMARY | 2024-12-25 18:03 | XMS_ITS | Clinical Summary ---
Author Organization [facility] [employer] Address [address] [place] [address] Care Team Providers Care Coning Machine Operator Name Role Phone Unavailable Primary Care Provider [...]
== END 2024-12-25 17:54 | disposition home or self-care (01) ==
LOC: HO.MRI 17:53
DX: M25.531 Pain in right wrist (principal)
CPT/HCPCS: 73221

== ENCOUNTER → 2024-12-25 17:54 | Outpatient (BNV) | payer OTHER, SELFPAY | PROVIDERS: Visit Provider Radiology Diagnostic Radiology | DX: M67.431 Ganglion, right wrist (principal) | CPT/HCPCS: 73221 ==

== ENCOUNTER 2025-01-10 13:50 | Outpatient (AMB) | payer OTHER, SELFPAY ==
[2025-01-10 13:56] VITALS: BMI 38.1
--- NOTE | 2025-01-10 13:56 | A.OFFVIS_ITS ---
Vital Signs 01/10/25 13:56 Height 5 ft 3 in Weight 215 lb BMI 38.1 Intake Visit Reasons: OV-Rt wrist MRI review Intake Note: Mela is a 59 year old right hand dominant female who presents today for follow up of her right radial head fracture, DOI: 10/01/24. At their last visit, 12/11/24, she was advised to discontinue the use of the sling and referred to occupational therapy to work on gentle range of motion of the right wrist and elbow. Due to persistent and ongoing severe pain, a MRI was ordered due to potential injury to the scapholunate ligament. Patient would like to discuss FMLA paperwork. Client Technical Professional Required: Yes Client Technical Professional Language: Towing [employer] Services: Client Technical Professional Offered & Declined Allergies NSAIDS (Non-Steroidal Anti-Inflamma Allergy (Severe, Verified 01/10/25 13:56) swelling of tongue naproxen (From NAPROSYN) Allergy (Mild, Verified 01/10/25 13:56) SWELLING, tongue swelling HPI HPI OV-Rt wrist MRI review: Details: Mela is a 59 year old right hand dominant female who presents today for follow up of her right radial head fracture, DOI: 10/01/24. At their last visit, 12/11/24, she was advised to discontinue the use of the sling and referred to occupational therapy to work on gentle range of motion of the right wrist and elbow. Due to persistent and ongoing severe pain, a MRI was ordered due to potential injury to the scapholunate ligament. Patient would like to discuss FMLA paperwork. [facility] Medical History (Updated 12/11/24 @ 11:09 by JAYSHREE Davidson) JOSE (obstructive sleep apnea) GERD (gastroesophageal reflux disease) Class 2 obesity with body mass index (BMI) of 37.0 to 37.9 in adult Physical exam Obesity due to excess calories Colon polyps Sleep apnea Vitamin D deficiency Postablative hypothyroidism Microscopic hematuria Low back pain Hypothyroidism Right lower quadrant abdominal pain Surgical History S/P cataract extraction Hx of colonoscopy History of thyroidectomy History of hand surgery Hx of thumb surgery Family History Father CHF (congestive heart failure) Pacemaker Mother CAD (coronary artery disease) Palpitations Maternal Aunt Thyroid disease Liver cancer Sister No problems noted. Son No problems noted. 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 Neuro: Normal sensation of the tips of all digits of the right hand at this time Vascular: Cap refill brisk Pain: No tenderness to palpation of the R radial head Some discomfort with range of motion of the right elbow, vastly improved from previous visit Patient is able to extend the right elbow to approximately 5 degrees and flex to approximately 130 degrees Minimal tenderness to palpation of the right wrist ROM: Limited ROM of the R wrist and elbow due to pain Skin: No lacerations or abrasions. General: No ecchymosis, erythema, or evidence of infection. 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 Mild extensor carpi ulnaris tendinopathy. Minimal multifocal tenosynovitis of the extensor tendons. There are 2 ganglia as detailed above. Mild prominence of the median nerve could be incidental although mild neuritis is a possibility. This document has been electronically signed by: Huseyin Chen MD on 12/25/2024 19:23:54 Assessment & Plan Assessment & Plan (1) Fracture of head of right radius: Code(s): S52.121A - Displaced fracture of head of right radius, initial encounter for closed fracture Category: Medical (2) De Quervain's tenosynovitis: Code(s): M65.4 - Radial styloid tenosynovitis [de Quervain] Category: Medical (3) Right wrist pain: Code(s): M25.531 - Pain in right wrist Category: Medical Plan 1. R radial head fracture 2. Right wrist pain DOI10/01/24 Patient is educated about this injury Patient is educated about the typical recovery course At this time, patient is advised that she should discontinue use of the sling, and should be coming out of it to work on gentle range of motion of the right wrist and elbow OT referral for gentle active range of motion of the right elbow and wrist MRI shows no evidence concerning for scaphoid fracture or scapholunate ligament injury, only appears to show extensor tendinitis and 2 very small ganglion cysts that are not clinically appreciable No further acute intervention for the right wrist indicated at this time Follow-up in 4-[address] Cardona for reassessment, sooner with any acute concerns Orders: Orders XR elbow RT min 3V 01/10/25 M25.521 - Pain in right elbow Coding Level of Care Code Global (96857) Diagnoses Fracture of head of right radius S52.121A De Quervain's tenosynovitis M65.4 Right wrist pain M25.531
--- OUTSIDE RECORDS SUMMARY | 2025-01-10 14:20 | XMS_ITS | Clinical Summary ---
Author Organization [employer] [employer] [facility] Address [address] [place] [address] Care Team Providers Care Ratchet Setter Name Role Phone Unavailable Primary Care Provider [...] 11/19/2015 Zoster Vaccines (1 of 2) 11/19/2015 COVID-19 Vaccine ( - 2023-2 5 season) 2024 Depression Screening 06/07/2024 Influenza Vaccine (#1) 2025 RSV Immunization Adult [...]
--- OUTSIDE RECORDS SUMMARY | 2025-01-10 14:20 | XMS_ITS | Clinical Summary ---
Author Organization [facility] Address [address] [place] [phone] Phone Care Team Providers Care Master Steam Yacht Name Role Phone Corry Urena MD Primary [...] topic Medical Devices Not on file Insurance [facility] ACO [facility]CO [facility]CO [facility] ACO [facility] [place] [address] [place] [address] ACO [facility] ACO [facility] ACO Care Teams Master Steam Yacht Relationship Specialty Start Date End Date Corry Urena MD [address] [place] [address] PCP - General 02/23/20 Additional Source Comments The information contained in this document represents components of the legal health record. It is not the complete legal health record.[facility]
--- OUTSIDE RECORDS SUMMARY | 2025-01-10 14:20 | XMS_ITS | Clinical Summary ---
Author Organization [employer] Address [address] [place] [address] Care Team Providers Care Unit Support Representative Name Role Phone Unavailable Primary Care Provider [...]
== END 2025-01-10 14:58 | disposition home or self-care (01) ==
LOC: HO.HOS 13:51
DX: S52.121A Displaced fracture of head of right radius, initial encounter for closed fracture (principal); M65.4 Radial styloid tenosynovitis [de Quervain]; M25.531 Pain in right wrist
CPT/HCPCS: 99213

== ENCOUNTER 2025-01-10 13:50 | Outpatient (REF) | payer OTHER, SELFPAY ==
--- NOTE | ~2025-01-10 | XR_ITS ---
EXAMINATION: XR ELBOW 3 VIEWS RIGHT HISTORY: M25.521 - Pain in right elbow COMPARISON: Comparison is made with the prior examination dated 12/11/2024. FINDINGS: Three views of the right elbow are submitted. Osseous mineralization is normal. Again seen is a fracture of the radial head. The fracture line remains visible. The joint spaces are preserved. There is a persistent small joint effusion. XR/XR elbow RT min 3V IMPRESSION: Fracture of the radial head without change. Electronically signed by: Boubacar Izquierdo MD 01/11/2025 07:12 AM EDT
== END 2025-01-10 13:51 | disposition home or self-care (01) ==
LOC: HO.HOSX 13:50
DX: S52.121D Displaced fracture of head of right radius, subsequent encounter for closed fracture with routine healing (principal); M65.4 Radial styloid tenosynovitis [de Quervain]; M25.531 Pain in right wrist; M25.521 Pain in right elbow; X58.XXXD Exposure to other specified factors, subsequent encounter
CPT/HCPCS: 73080; 99212

== ENCOUNTER → 2025-01-10 14:23 | Outpatient (BNV) | payer OTHER, SELFPAY | PROVIDERS: Visit Provider Radiology Diagnostic Radiology | DX: S52.121A Displaced fracture of head of right radius, initial encounter for closed fracture (principal) | CPT/HCPCS: 73080 ==

== ENCOUNTER 2025-02-07 12:44 | Outpatient (AMB) | payer OTHER, SELFPAY ==
--- NOTE | 2025-02-07 12:49 | A.OFFVIS_ITS ---
Vital Signs 02/07/25 12:50 Height 5 ft 3 in Weight 215 lb BMI 38.1 Intake Visit Reasons: OV-Rt wrist MRI review Intake Note: Mela 59 yr old right hand dominant female presents today for her right wrist MRI review. Patient reports she continues to have pain in her wrist. States John Winters reviewed her MRI results however she was advise to have it reviewed with Dr Cardona to discuss assessment. 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 Mild extensor carpi ulnaris tendinopathy. Minimal multifocal tenosynovitis of the extensor tendons. There are 2 ganglia as detailed above. Mild prominence of the median nerve could be incidental although mild neuritis is a possibility. Allergies NSAIDS (Non-Steroidal Anti-Inflamma Allergy (Severe, Verified 02/07/25 12:54) swelling of tongue naproxen (From NAPROSYN) Allergy (Mild, Verified 02/07/25 12:54) SWELLING, tongue swelling HPI HPI OV-Rt wrist MRI review: Details: Mela is a 59 year old right hand dominant Sami speaking woman who returns for an MRI review of her right wrist. She is S/P right radial head fracture, after a fall, DOI: 10/01/24. This was managed non-operatively. She complains of ongoing pain extending from her right shoulder to her right biceps across her elbow and into her forearm & wrist, both dorsal & volar. She says motion & use of her arm increases her pain. She has been attending OT hand therapy but has not been back since her MRI, they were waiting on the MRI review before continuing therapy. Her sensation is normal & her numbness has resolved. 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 [facility] Medical History (Updated 02/07/25 @ 13:38 by Hima Leong) JOSE (obstructive sleep apnea) GERD (gastroesophageal reflux disease) Class 2 obesity with body mass index (BMI) of 37.0 to 37.9 in adult Physical exam Obesity due to excess calories Colon polyps Sleep apnea Vitamin D deficiency Postablative hypothyroidism Microscopic hematuria Low back pain Hypothyroidism Right lower quadrant abdominal pain Surgical History S/P cataract extraction Hx of colonoscopy History of thyroidectomy History of hand surgery Hx of thumb surgery Family History Father CHF (congestive heart failure) Pacemaker Mother CAD (coronary artery disease) Palpitations Maternal Aunt Thyroid disease Liver cancer Sister No problems noted. Son No problems noted. 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 Current occupational exposures/hazards: No Cognitive needs: No Hearing needs: No Vision needs: Yes Female Reproductive History Menstrual Age of Menarche: 12 Review of Systems Const All systems reviewed & are unremarkable except as noted in HPI and below Physical Exam Vital Signs: BMI result Body Mass Index 38.1 Const General: cooperative, healthy appearing and no acute distress Orientation/consciousness: patient oriented x3 HEENT Head: Yes normocephalic and Yes atraumatic Eyes EOM: EOMs intact bilaterally Resp Effort & Inspection: normal respiratory effort and able to speak in complete sentences Cardio Jugular venous distension: no JVD Skin General skin exam: turgor normal Rashes: no rashes Neuro General: patient oriented x3 Extrem Other: Evaluation of Right Upper Extremity: The patient is alert, oriented, and in no acute distress Neuro: Median, Ulnar, Radial nerves motor and sensory intact and sensation is normal to the tips of all digits Good ABduction & ADduction No thenar or intrinsic wasting Good APB muscle belly firing and good finger cross Vascular: Cap refill brisk ROM: She can make a fist and extend all her digits Wrist ROM: Full pronosupination without pain Elbow: 120 degrees flexion, and lacking ~20 degrees from full extension Skin: No lacerations or abrasions. General: No Ecchymosis. No Erythema or evidence of infection. She is demonstrating pain in her biceps, dorsal & volar forearm, elbow, and radiating into her shoulder Mildly Pos Corinna test on the right Mild tenderness over the 1st dorsal compartment She has pain with resisted wrist extension to the dorsal distal aspect of her forearm, not to any specific tendon. This also causes radial & volar radial wrist & forearm pain. Radiographs: 3 views of the right elbow from 01/10/25 were reviewed by me today in clinic. They show a healed radial head fracture with satisfactory fracture alignment Right wrist MRI: Findings: There is motion artifact. No acute fractures are seen. There is mild 1st carpometacarpal DJD. No tendon disruption is seen. There is mild extensor carpi ulnaris tendinopathy. There is minimal multifocal tenosynovitis involving the extensor tendons. There is mild nonspecific prominence of the median nerve. Anterior to the radioscaphoid articulation there is a 7 mm ganglion. Dorsal to the scapholunate articulation there is a 3 mm ganglion. The scapholunate interval is normal. The triangular fibrocartilage appears intact. 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 Mild extensor carpi ulnaris tendinopathy. Minimal multifocal tenosynovitis of the extensor tendons. There are 2 ganglia as detailed above. Mild prominence of the median nerve could be incidental although mild neuritis is a possibility. This document has been electronically signed by: Huseyin Chen MD on 12/25/2024 Dr. Cardona impression: No inflammation about the 1st dorsal compartment tendons seen Psych Appearance: grossly normal Affect: normal affect Attitude: cooperative Assessment & Plan Assessment & Plan (1) Right arm pain: Code(s): M79.601 - Pain in right arm Category: Medical (2) Stiffness of right elbow joint: Code(s): M25.621 - Stiffness of right elbow, not elsewhere classified Category: Medical Plan Assessment & Plan: 1. Generalized Right arm pain Volar & dorsal forearm, extending across the elbow, biceps, and into the shoulder Most of this is MSK 2. Right radial head fracture, S/P fall DOI: 10/01/24 This went on to heal well 3. 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 At this time I do not see a reason to keep her out of work, and she was given a note to return to work without restrictions, however with time off to attend OT hand therapy. She will follow up prn 4. Right wrist pain Less bothersome than her muscular pain in her forearm and biceps No significant findings on MRI today I educated her about these conditions and reviewed her MRI with her In regards to her wrist MRI, I do not see any indications for treatment No further studies indicated at this time 5. Right hand numbness, S/P fall Symptoms completely resolved per patient report today No indications for NCS Please note that greater than 60 minutes was spent with this patient going over the history, evaluating the patient and radiographs, formulating possible treatment options, discussing them with the patient, and documenting the visit. Scribed for Jillian Cardona MD by Hima Leong, medical service representative, on 02/07/25 at 1:35 PM, EST. Orders: Orders OT Evaluation and Treatment Today M79.601 - Pain in right arm, S52.121A - Displaced fracture of head of right radius, initial encounter for closed fracture Coding Level of Care Code Est Pt Level 5 (81443) Diagnoses Right arm pain M79.601 Stiffness of right elbow joint M25.621
[2025-02-07 12:50] VITALS: BMI 38.1
--- OUTSIDE RECORDS SUMMARY | 2025-02-07 15:11 | XMS_ITS | Encounter Summary ---
Author Organization [employer] Address [address] [facility] [address] [place] [address] Care Team Providers Care Clay Molder Name Role Phone Grant Posadas MD Primary Care Prov ider Encounter Details Date Type Department Care Team (Latest Contact Info) Description 02/03/2019 Abstract [facility] CONVERSIONS Dental, Provider, DDS Social History [...] on filedocumented in this encounter Care Teams Clay Molder Relationship Specialty Start Date End Date Grant Posadas MD [address] [place] [address] PCP - General Internal Medicine 10/31/19 04/07/23 documented as of this encounter
--- OUTSIDE RECORDS SUMMARY | 2025-02-07 15:11 | XMS_ITS | Encounter Summary ---
Author Organization [employer] Address [address] [facility] [address] [place] [address] Care Team Providers Care Retail Wireless Associate Name Role Phone Grant Posadas MD Primary Care Prov ider Encounter Details Date Type Department Care Team (Latest Contact Info) Description 05/05/2021 Abstract [facility] CONVERSIONS Dental, Provider, DDS Social [...] on filedocumented in this encounter Care Teams Retail Wireless Associate Relationship Specialty Start Date End Date Grant Posadas MD [address] [place] [address] PCP - General Internal Medicine 10/31/19 04/07/23 documented as of this encounter
--- OUTSIDE RECORDS SUMMARY | 2025-02-07 15:11 | XMS_ITS | Clinical Summary ---
Author Organization [facility] Address [address] [facility] [address] [place] [phone] Phone Care Team Providers Care Manager Produce Name Role Phone Corry Urena MD Primary [...] DEPRESSION SCREENING 1977 SMOKING Hx and SMOKELESS TOBACCO SCREENING 1978 HEPATITIS C SCREENING 11/19/1983 HIV ONE-TIME SCREENING (18-6 5 YEARS) 11/19/1983 PNEUMOCOCCAL VACCINES (50+ years) (1 of 2 - PCV) 1984 PAP SMEAR 1986 MAMMOGRAM 2005 COLOGUARD 2010 COLONOSCOPY 2010 COLORECTAL CANCER SCREENING 2010 FIT TEST 2010 FOBT 2010 SIGMOIDOSCOPY 2010 VIRTUAL COLONOSCOPY 2010 ZOSTER VACCINES (2 of 2) 05/30/2020 04/04/2020 INFLUENZA VACCINE (#1) 2025 0, 04/11/2019, 04/19/2018 COVID-19 VACCINE (2 - 2024-2 6 season) 2025 08/21/2020 Adult Td,Tdap Booster 05/20/2026 05/20/2016 HEPATITIS [...] topic Medical Devices Not on file Insurance [facility] [place] [address] [place] [address] [place] [address] [place] [address] [place] [address] [place] [address] A[employer] [facility] A[employer] Care Teams Manager Produce Relationship Specialty Start Date End Date Corry Urena MD [address] [place] [address] PCP - General 02/23/20 Additional Source Comments The information contained in this document represents components of the legal health record. It is not the complete legal health record.[facility]
--- OUTSIDE RECORDS SUMMARY | 2025-02-07 15:11 | XMS_ITS | Clinical Summary ---
Author Organization [employer] Address [address] [facility] 7[address] [place] [address] Care Team Providers Care Traffic Police Officer Name Role Phone Unavailable Primary Care [...]
--- OUTSIDE RECORDS SUMMARY | 2025-02-07 15:11 | XMS_ITS | Clinical Summary ---
Author Organization [facility] ity Address [address] [place] [address] Care Team Providers Care Cleat Blanker Name Role Phone Unavailable Primary Care Provider [...] 11/19/2015 Zoster Vaccines (1 of 2) 11/19/2015 Depression Screening 06/07/2024 COVID-19 Vaccine ( - 2023-2 5 season) 2025 Influenza Vaccine (#1) 2025 RSV Immunization Adult [...]
== END 2025-02-07 14:00 | disposition home or self-care (01) ==
LOC: HO.HOS 12:45
PROVIDERS: Visit Provider Orthopaedic Surgery
DX: M79.601 Pain in right arm (principal); M25.621 Stiffness of right elbow, not elsewhere classified
CPT/HCPCS: 99215

== ENCOUNTER → 2025-02-07 12:44 | Outpatient (BNVA) | payer OTHER, SELFPAY | PROVIDERS: Visit Provider Orthopaedic Surgery | DX: Z71.2 Person consulting for explanation of examination or test findings (principal); M25.531 Pain in right wrist; M79.601 Pain in right arm; M25.621 Stiffness of right elbow, not elsewhere classified | CPT/HCPCS: 99212 ==

== ENCOUNTER 2025-03-14 13:00 | Outpatient (RCR) | payer OTHER, SELFPAY ==
--- NOTE | 2025-02-14 14:00 | MHC.OT.EP ---
[facility] Office [address] [phone] F: [phone] F: [phone] Occupational Therapy Plan of Care Patient Name: Mela Jurado Date of Evaluation: 02/14/25 Diagnosis: Right arm pain Pain Location: Inner elbow/medial elbow Pain radiates up to shoulder Pain Score: 7 Pain Scale Used: Numeric (0 - 10) Aggravating Factors: Forceful use (sweeping, carrying) Alleviating Factors: Tylenol at night, heat, pain patches and Volteran Assessment: 59 yo female w/ hx of right radial head fx 10/01/24 after tripping on pothole and falling onto right side. She was initially placed in sling then referred to OT for cont'd management. She was seen for OT and had been ding well, but was reporting persistent right wrist pain to a point she was unable to tolerate therapy and was placed on hold until further assessment. She is now referred back to OT for continued management of right elbow pain and stiffness w/ overall weakness in the setting of mild ECU and extensor tendinopathies. On eval today, elbow ranges about 135 flexion to about 25 loss of end range extension. Rotation is grossly WFL, but tight w/ supination. She has pain in inner arm and at medial elbow, but no specific pain reported in right wrist at this time. Gross grasp is very low w/ 5lb on right and 50 on left. We will continue OT to address range, strengthening and normalizing function, with education on activity modification as appropriate to address overuse injuries with goal of returning back to work. 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 Thank you once again for your referral.
== END 2025-03-14 13:30 | disposition home or self-care (01) ==
LOC: HO.OT 13:00
PROVIDERS: PCP Internal Medicine; Visit Provider Orthopaedic Surgery
DX: M79.601 Pain in right arm (principal); S52.121A Displaced fracture of head of right radius, initial encounter for closed fracture
CPT/HCPCS: 97110; 97140; 97165

== ENCOUNTER 2025-04-23 15:48 | Outpatient (AMB) | payer OTHER, SELFPAY ==
[2025-04-23 15:53] VITALS: BP 110/62; PULSE 79; RESP 18; O2SAT 96; BMI 40.1
--- NOTE | 2025-04-23 15:53 | A.OFFPC_ITS ---
Vital Signs 04/23/25 15:53 Height 5 ft 3 in Weight 226 lb 4 oz BMI 40.1 BP 110/62 Blood Pressure Location Lt brachial Position Sitting Respiration 18 Pulse 79 Pulse Source Pulse Oximeter Temp Source Temporal Artery Scan Pulse Oximetry (%) 96 Oxygen Delivery Method Room Air Intake Visit Reasons: thyroid Manager Party Required: No Accompanied by: Self / Same As Patient Allergies NSAIDS (Non-Steroidal Anti-Inflamma Allergy (Severe, Verified 04/23/25 16:09) swelling of tongue naproxen (From NAPROSYN) Allergy (Mild, Verified 04/23/25 16:09) SWELLING, tongue swelling Medication List - Last Reconciled 04/23/25 by Corry Calhoun MD albuterol sulfate 90 mcg/actuation 1 inh inhalation QID PRN 1 week cetirizine-pseudoephedrine 5-120 mg ER 1 tab PO BID 7 days fluticasone propionate 50 mcg/actuation 1 spray intranasal Q12H levothyroxine 112 mcg PO DAILY 90 days multivitamin 1 tab PO DAILY Tobacco use date assessed: 04/23/25 Dental Screening Dental Screen Date: 04/23/25 Did you have a dental visit in the last 12 months?: No Did you have a dental problem in the last 6 months where you did not have access to dental care?: No Was dental information given to patient?: No HPI HPI Comments History of Present Illness Details The patient is a 59-year-old female presenting for weight management and follow-up on her thyroid status. Her last thyroid test was in November and the result was good. Other lab results for cholesterol and sugar were also excellent at that time. She is morbidly obese and declines weight loss surgery. The patient is concerned about her weight and has an interest in treatment with Wegovy. [facility] Medical History (Updated 04/23/25 @ 19:10 by Corry Calhoun MD) JOSE (obstructive sleep apnea) GERD (gastroesophageal reflux disease) Class 2 obesity with body mass index (BMI) of 37.0 to 37.9 in adult Physical exam Obesity due to excess calories Colon polyps Sleep apnea Vitamin D deficiency Postablative hypothyroidism Microscopic hematuria Low back pain Hypothyroidism Right lower quadrant abdominal pain Surgical History S/P cataract extraction Hx of colonoscopy History of thyroidectomy History of hand surgery Hx of thumb surgery Family History Father CHF (congestive heart failure) Pacemaker Mother CAD (coronary artery disease) Palpitations Maternal Aunt Thyroid disease Liver cancer Sister No problems noted. Son No problems noted. 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 4. Feeling tired or having little energy: nearly every day 5. Poor appetite or overeating: more than half the days 6. Feeling bad about yourself - or that you are a failure or have let yourself or your family down: more than half the days 7. Trouble concentrating on things, such as reading the newspaper or watching television: more than half the days 8. Moving or speaking so slowly that other people could have noticed. Or the opposite - being so fidgety or restless that you have been moving around a lot more than usual: not at all 9. Thoughts that you would be better off or of hurting yourself in some way: not at all Source: Developed by Drs. Boubacar Arambula, Brittany Martin, Frank Rodriguez and colleagues, with an educational imelda from [employer]. Thrive Questionnaire Date Thrive assessed: 10/16/24 I am a: Patient What is your living situation today?: I have a steady place to live Within the past 12 months, did the food you bought not last and you didn't have the money to get more?: Never true Within the past 12 months, did you worry whether your food would run out before you got money to buy more?: Never true Do you have trouble paying for medicines?: No Do you have trouble getting transportation to medical appointments?: No Do you have trouble paying your heating and electricity bill?: No Do you have trouble taking care of your child, family member or friend?: No Do you have trouble with day-to-day activities such as bathing, preparing meals, shopping, managing finances, etc.?: I choose not to answer this question Are you currently unemployed and looking for a job?: Yes Are you interested in more education?: I choose not to answer this question Please select the resources that you would like help with: None Currently or been in a relationship where the following occur: I choose not to answer THRIVE Score: 0 KERRY-7 AMB Questionnaire KERRY-7 Date KERRY - 7 assessed: 10/16/24 Source: Developed by Drs. Boubacar Arambula, Brittany Martin, Frank Rodriguez and colleagues, with an educational imelda from [employer]. Review of Systems Const All systems reviewed & are unremarkable except as noted in HPI and below Card Denies chest pain at rest, Denies chest pain with activity, Denies edema, Denies irregular heart rhythm, Denies claudication, Denies dyspnea, Denies dyspnea on exertion, Denies orthopnea, Denies paroxysmal nocturnal dyspnea and Denies slow heart rate Resp Denies cough, Denies dyspnea and Denies dyspnea on exertion GI Denies abdominal pain, Denies change in bowel habits, Denies excessive flatus, Denies nausea and Denies vomiting Denies urinary incontinence, Denies urinary hesitancy and Denies urinary urgency Physical exam (Primary Care) Vital Signs: Last Vital Signs Pulse 79 04/23/25 15:53 Resp 18 04/23/25 15:53 BP 110/62 04/23/25 15:53 Pulse Ox 96 04/23/25 15:53 Oxygen Delivery Method Room Air 04/23/25 15:53 BMI result Body Mass Index 40.1 BMI Assessment/Plan discussion: High BMI High, discussed plan: lifestyle, weight reduction, dietary and physical activity Tobacco/Smoking Status: Tobacco use Status Tobacco use date assessed 04/23/25 04/23/25 15:57 Patient Tobacco Use Status Former Tobacco user 04/23/25 15:57 Tobacco use type Cigarette 04/23/25 15:57 e-Cigarette/Vaping Use Never Used 04/23/25 15:57 Thrive Assessment: Date of Thrive Assessment Date Thrive assessed 10/16/24 04/23/25 15:57 Currently or been in a relationship where the following occur: I choose not to answer Resp Effort & Inspection: normal respiratory effort Auscultation: clear to auscultation bilaterally Cardio Jugular venous distension: no JVD Rate: regular rate Rhythm: regular rhythm Heart sounds: S1 normal heart sound present and S2 normal heart sound present Extrem General: Yes full ROM Coding Level of Care Code Est Pt Level 3 (01008) Diagnoses Hypothyroidism, unspecified type E03.9 Hypothyroidism type: unspecified Morbid obesity with BMI of 40.0-44.9, adult E66.01; Z68.41 Time Spent (min) 18 Assessment & Plan Assessment & Plan (1) Hypothyroidism: Code(s): E03.9 - Hypothyroidism, unspecified Category: Medical Qualifiers: Hypothyroidism type: unspecified Qualified Code(s): E03.9 - Hypothyroidism, unspecified (2) Morbid obesity with BMI of 40.0-44.9, adult: Code(s): E66.01 - Morbid (severe) obesity due to excess calories; Z68.41 - Body mass index [BMI] 40.0-44.9, adult Category: Medical Plan Plan 1. Morbid obesity The patient requested Wegovy for weight management. A prescription for Wegovy will be sent to the patient's preferred pharmacy. We discussed that insurance may not approve the medication. An alternative option was provided to contact [facility], a clinic that specializes in weight management and prescribes medication. The patient plans to try all available options. 2. Hypothyroidism A repeat thyroid test will be performed today as it does not require fasting. Orders: Orders Thyroid Stimulating Hormone Today E03.9 - Hypothyroidism, unspecified Medications: New semaglutide (weight loss) (Wegovy) administer weeks 1 through 4 of therapy 0.25 mg (0.5 mL) subcut QWEEK 2 mL 0RF 4 weeks
== END 2025-04-23 16:42 | disposition home or self-care (01) ==
LOC: HO.HMCH 15:49
PROVIDERS: PCP Internal Medicine; Visit Provider Internal Medicine
DX: E03.9 Hypothyroidism, unspecified (principal); E66.01 Morbid (severe) obesity due to excess calories; Z68.41 Body mass index [BMI] 40.0-44.9, adult

== ENCOUNTER 2025-04-23 15:48 | Outpatient (REF) | payer OTHER, SELFPAY ==
[2025-04-23 18:01] LABS: Thyroid Stimulating Hormone 1.31 uIU/mL (0.32-4.0)
--- OUTSIDE RECORDS SUMMARY | 2025-04-24 07:24 | XMS_ITS | Clinical Summary ---
Author Organization [facility] ity Address [address] [place] [address] Care Team Providers Care Sanding Machine Tender Automatic Name Role Phone Unavailable Primary Care Provider [...] Depression Screening 06/07/2024 COVID-19 Vaccine ( - 2024-2 6 season) 2025 Influenza Vaccine (#1) 2025 RSV [...]
--- OUTSIDE RECORDS SUMMARY | 2025-04-24 07:25 | XMS_ITS | Clinical Summary ---
Author Organization [facility] Address [address] [facility] [address] [place] [phone] Phone Care Team Providers Care Corporate Compliance Manager Name Role Phone Corry Urena MD Primary [...] 2025 08/21/2020 Adult Td,Tdap Booster 05/20/2026 05/20/2016 RSV VACCINE (1 - 1-dose 75+ series) 2040 HEPATITIS A VACCINES Aged Out No long er eligible based on patient's age to complete this topic HIB VACCINES Aged Out No longer eligi ble based on patient's age to complete this topic IPV VACCINES Aged Out No longer eligi ble based on patient's age to complete this topic MENINGOCOCCAL VACCINES (ACWY) Aged Out No longer eligible based on patient's age to complete this topic MENINGOCOCCAL VACCINES (B) Aged Out N o longer eligible based on patient's age to complete this topic Medical Devices Not on file Insurance [facility] [place] [address] [place] [address] [place] [address] [place] [address] [place] [address] [place] [address] [place] [address] [place] [address] ACO [facility] ACO [facility] Care Teams Corporate Compliance Manager Relationship Specialty Start Date End Date Corry Urena MD [address] [place] [address] PCP - General 02/23/20 Additional Source Comments The information contained in this document represents components of the legal health record. It is not the complete legal health record.[facility]
== END 2025-04-23 15:49 | disposition home or self-care (01) ==
LOC: HO.LAB 15:48
PROVIDERS: PCP Internal Medicine; Visit Provider Internal Medicine
DX: E03.9 Hypothyroidism, unspecified (principal); E66.01 Morbid (severe) obesity due to excess calories; F17.210 Nicotine dependence, cigarettes, uncomplicated; Z79.890 Hormone replacement therapy; Z79.899 Other long term (current) drug therapy; Z68.41 Body mass index [BMI] 40.0-44.9, adult
CPT/HCPCS: 36415; 84443; 99212

== ENCOUNTER 2025-05-18 13:39 | Outpatient (AMB) | payer OTHER, SELFPAY ==
--- NOTE | 2025-05-18 13:50 | MHC.OFFVIS ---
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: Burglar Alarm Assembler Present (Lana) Accompanied by: Self / Same As Patient Allergies NSAIDS (Non-Steroidal Anti-Inflamma Allergy (Severe, Verified 05/18/25 13:56) swelling of tongue naproxen (From NAPROSYN) Allergy (Mild, Verified 05/18/25 13:56) SWELLING, tongue swelling Medication List - Last Reconciled 05/18/25 by Varsha Choi CNM albuterol sulfate 90 mcg/actuation 1 inh inhalation QID PRN 1 week cetirizine-pseudoephedrine 5-120 mg ER 1 tab PO BID 7 days fluticasone propionate 50 mcg/actuation 1 spray intranasal Q12H levothyroxine 112 mcg PO DAILY 90 days multivitamin 1 tab PO DAILY Is last menstrual period known: No Post menopausal: Yes Patient : No HPI HPI 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 She broke her right arm after falling in in a hole in the drive way last November or December she only finished with physical therapy last March sometimes it still hurts With keeping it immobilized and less activity she lost flexibility in her shoulder and also she has gained weight. She has been struggling to lose it and she benefitted from Wegovy in the past but then it was not covered by her insurance she was recommended to see weight management but she has absolutely no interest in a surgical solution. She recently saw cardiology and she had a sleep apnea study that showed she stopped breathing 70 9 times in a night and her skate maker recommended that she be prescribed Zepbound. She is awaiting receive all of those records to her primary care provider's office, as she is anxious to do what she can do to achieve better health and help her lose the weight. She does have a bicycle at home which she uses. She has been noticing she was getting out of breath doing things that did not cause that before. She is up-to-date on her mammogram. Her Pap smear was negative last year she has not been sexually active in 10 years and does not need any STI screening. [facility] Medical History JOSE (obstructive sleep apnea) GERD (gastroesophageal reflux disease) Class 2 obesity with body mass index (BMI) of 37.0 to 37.9 in adult Physical exam Obesity due to excess calories Colon polyps Sleep apnea Vitamin D deficiency Postablative hypothyroidism Microscopic hematuria Low back pain Hypothyroidism Right lower quadrant abdominal pain Surgical History S/P cataract extraction Hx of colonoscopy History of thyroidectomy History of hand surgery Hx of thumb surgery Family History Father CHF (congestive heart failure) Pacemaker Mother CAD (coronary artery disease) Palpitations Maternal Aunt Thyroid disease Liver cancer Sister No problems noted. Son No problems noted. 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 Current occupational exposures/hazards: No Cognitive needs: No Hearing needs: No Vision needs: Yes Female Reproductive History Menstrual Age of Menarche: 12 Total pregnancies: 4 Full term: 3 Date of last pap smear: 11/15/23 Date of Mammogram: 11/20/24 (bi rad 1) Physical Exam Vital Signs: Last Vital Signs BP 122/72 05/18/25 13:58 BMI result Body Mass Index 40.0 Const General: healthy appearing, comfortable, no acute distress, well developed and alert Nutritional Appearance: average body habitus Orientation/consciousness: patient oriented x3 Limitations: no limitations HEENT Head: Yes normocephalic Neck Neck: Yes normal visual inspection Chest Chest palpation & inspection: normal inspection of the chest Breast/axilla inspection: normal inspection of the breasts and normal inspection of the axillae Breast/axilla palpation: normal palpation of the breasts and normal palpation of the axillae Resp Effort & Inspection: normal respiratory effort GI Inspection: Yes normal to inspection, No Abdominal wall edema and No distended Palpation (GI): Soft to palpation and nontender Other: External exam within normal limits vagina pink and moist some atrophic changes noted normal vaginal discharge cervix multiparous pink smooth healthy appearing cervix mobile nontender uterus midposition slightly difficult to palpate but not enlarged nontender adnexa nontender nonenlarged good tone with Kegel. General: Yes bladder normal to palpation External Female Exam: normal external appearance and normal appearance of the urethra Speculum Exam - Vagina: normal appearance of the vagina, normal palpation and normal vaginal discharge Speculum Exam - Cervix: normal appearance of the cervix, normal palpation and nontender Bimanual exam- vagina & uterus: normal bimanual exam, normal palpation, uterine size normal, bladder normal to palpation, consistency normal, normal palpation, uterine mobility normal, uterine shape normal, No Cervical tenderness present, non-tender and no cervical motion tenderness Bimanual Exam- Adnexa, other: normal adnexae, no masses, normal and No adnexal tenderness Neuro General: patient oriented x3 Assessment & Plan Assessment & Plan (1) Screening for cervical cancer: Comment: Pap done 11/12/2023= neg w neg HPV. Code(s): Z12.4 - Encounter for screening for malignant neoplasm of cervix Category: Medical (2) Breast cancer screening: Code(s): Z12.39 - Encounter for other screening for malignant neoplasm of breast Category: Medical (3) Women's annual routine gynecological examination: Code(s): Z01.419 - Encounter for gynecological examination (general) (routine) without abnormal findings Category: Medical (4) Morbid obesity with BMI of 40.0-44.9, adult: Comment: Patient is doing what she can, andis hoping there can be some medication assistance aid in her efforts... Code(s): E66.01 - Morbid (severe) obesity due to excess calories; Z68.41 - Body mass index [BMI] 40.0-44.9, adult Category: Medical Plan -----Discussed in this visit the following: healthy balanced diet, regular and consistent exercise, getting recommended health screens, doing the best she can for her particular health concerns, kegel exercises, pap smear screening and followup recommendations, mammography screening and SBE, normal changes in cycles in her life stage--- . 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 It is affecting her health and she is been challenged by sleep apnea as well she is awaiting the consultation from the skate maker in [place] to arrive at her primary care office to see if there is another solution that she can avail of to assist her she had good success with Wegovy in the past but insurance did not cover it any longer. She is not due for Pap smear she did not need screening for STIs and she is up-to-date on her mammograms. We will see her next year. Information about H provider's given to patient. Coding Level of Care Code Est Pt Prev Care 40-64y(19888) Diagnoses Screening for cervical cancer Z12.4 Breast cancer screening Z12.39 Women's annual routine gynecological examination Z01.419 Morbid obesity with BMI of 40.0-44.9, adult E66.01; Z68.41
[2025-05-18 13:58] VITALS: BP 122/72; BMI 40.0
--- OUTSIDE RECORDS SUMMARY | 2025-05-18 19:04 | XMS_ITS | Clinical Summary ---
Author Organization [facility] Address [address] [facility] [address] [place] [phone] Phone Care Team Providers Care Client Technical Support Associate Name Role Phone Corry Urena MD Primary [...] topic Medical Devices Not on file Insurance [facility] [place] [address] [place] [address] [place] [address] [place] [address] [place] [address] [place] [address] [place] [facility] [place] [address] [place] [address] ACO [facility] ACO Member Subscriber Plan / Payer (Ef fective 2020-Present) Name:Mela Jurado Relation to Subscriber:Self Name:Mela Jurado Payer ID:[id number] Group ID:[id number] Type:Medicaid Address: [id number] [facility] ACO [facility] ACO Care Teams Client Technical Support Associate Relationship Specialty Start Date End Date Corry Urena MD [address] [place] [address] PCP - General 02/23/20 Additional Source Comments The information contained in this document represents components of the legal health record. It is not the complete legal health record.[facility]
--- OUTSIDE RECORDS SUMMARY | 2025-05-18 19:04 | XMS_ITS | Clinical Summary ---
Author Organization [facility] ity Address [address] [place] [address] Care Team Providers Care Entry Level Software Engineer Name Role Phone Unavailable Primary Care Provider [...]
== END 2025-05-18 15:07 | disposition home or self-care (01) ==
LOC: HO.HWS 13:39
PROVIDERS: PCP Internal Medicine; Visit Provider Advanced Practice Midwife
DX: Z01.419 Encounter for gynecological examination (general) (routine) without abnormal findings (principal); Z12.39 Encounter for other screening for malignant neoplasm of breast; E66.01 Morbid (severe) obesity due to excess calories; Z68.41 Body mass index [BMI] 40.0-44.9, adult; Z12.4 Encounter for screening for malignant neoplasm of cervix
CPT/HCPCS: 99396; 99459

== ENCOUNTER → 2025-05-18 13:39 | Outpatient (BNVA) | payer OTHER, SELFPAY | PROVIDERS: PCP Internal Medicine; Visit Provider Advanced Practice Midwife | DX: Z01.419 Encounter for gynecological examination (general) (routine) without abnormal findings (principal); Z12.39 Encounter for other screening for malignant neoplasm of breast; E66.01 Morbid (severe) obesity due to excess calories; Z71.3 Dietary counseling and surveillance; Z71.82 Exercise counseling; Z68.41 Body mass index [BMI] 40.0-44.9, adult | CPT/HCPCS: 99396 ==